=== PATIENT | female | born 1955 ===

== ENCOUNTER 2022-04-05 14:39 | Emergency (ER) | payer MEDICARE, MEDICAID, SELFPAY ==
[2022-04-05 14:42] VITALS: BP 180/78; PULSE 93; RESP 18; TEMP 35.9; O2SAT 98; BMI 30.5
--- NOTE | 2022-04-05 14:51 | ED_ITS ---
HPI - General Adult General Chief complaint: General Medical Stated complaint: Flu symptoms 10+days Time Seen by Provider: 04/05/22 14:51 Source: patient Mode of arrival: ambulatory Limitations: no limitations History of Present Illness HPI narrative: Patient is a 66 year old female presenting to the emergency department today with a cough and feeling generally unwell. Patient states that she has had a cough and felt generally unwell for 10 days now. Patient states that she does have a history of asthma. Patient denies any dizziness, lightheadedness, abdominal pain, nausea, vomiting, fever, chills, blurry vision, double vision, loss of vision, chest pain, difficulty breathing, shortness of breath, back pain, night sweats, pain with urination, increased urinary frequency, increased urinary urgency, blood in her urine or stool, syncope or a near syncopal episode, recent trauma or falls, bowel incontinence, bladder incontinence, bowel retention, bladder retention, or any other complaints at this time. Onset (ago): day(s) (10) Severity: mild Severity scale (1-10): 1 Relieving factors: none Exacerbating factors: none Associated symptoms: cough Treatments prior to arrival: none Related Data Previous Rx's Medication Instructions Recorded albuterol sulfate 90 mcg/actuation 2 inh inhalation Q4-6H PRN 04/05/22 breath activated powder inhaler shortness of breath #1 ea azithromycin 500 mg tablet See Rx Instructions PO .COMPLEX #3 04/05/22 tabs prednisone 20 mg tablet 20 mg PO DAILY 12 days #26 tabs 04/05/22 Allergies Allergy/AdvReac Type Severity Reaction Status Date / Time sitagliptin [From ] Allergy Unknown Verified 04/05/22 14:46 Review of Systems Constitutional: Constitutional: Reports no additional constitutional complaints, Denies chills, Denies fever(s) and Denies night sweats Eyes: Eyes: Reports no additional eye complaints, Denies blurry vision, Denies change in vision, Denies diplopia, Denies eye discharge, Denies loss of vision a nd Denies eye pain ENT: Denies dizziness Cardiovascular: Cardiovascular: Reports no additional cardiovascular compla ints, Denies chest pain, Denies lightheadedness, Denies Loss of Consciousness and Denies dyspnea Respiratory: Respiratory: Reports no additional respiratory complaints, Reports cough and Denies dyspnea Gastrointestinal: Gastrointestinal: Reports no additional gastrointestinal complaints, Denies abdominal pain, Denies melena, Denies hematochezia, Denies change in bowel habits and Denies change in stool character Genitourinary: Genitourinary: Denies hematuria, Denies urinary frequency, Denies dysuria, Denies urinary incontinence, Denies urinary hesitancy and Denies urinary urgency Musculoskeletal: Musculoskeletal: Reports no additional musculoskeletal complaints, Denies numbness and Denies tingling Neurologic: Denies dizziness, Denies loss of vision, Denies numbness and Denies tingling Psychiatric: Psychiatric: Reports no additional psychiatric complaints Endocrine: Endocrine: Reports no additional endocrine complaints Hematologic/Lymphatic: Hematologic/Lymphatic: Reports no additional hematologic/lymphatic complaints Allergic/Immunologic: Allergic/Immunologic: Reports no additional allergic/immunologic complaints [facility] Past Medical History Attestation statement: The following information was validated with the patient. Source: old records reviewed Social History Social History Advance Directives: No Advance Directives Information Provided: No Physical Exam ED Vital Signs: Vital Signs - 24 hr 04/05/22 14:42 Temperature 96.7 F L Pulse Rate 93 Respiratory Rate 18 Blood Pressure 180/78 H Pulse Oximetry 98 Oxygen Delivery Method Room Air BMI result Body Mass Index 30.5 Const General: cooperative, no acute distress, alert and awake Nutritional Appearance: well nourished Orientation/consciousness: patient oriented x3 Limitations: no limitations HENMT Head: Yes normal to inspection and Yes atraumatic Ears: hearing grossly normal bilaterally and external ears normal General nose exam: Normal external nose present, no nasal discharge noted and no epistaxis Face and sinus: Yes normal facial exam, No abrasion and No laceration Mouth: Normal oral and palatal mucosa present, no drooling and no muffled voice Eyes General: appearance normal, both eyes and all related structures Periorbital: periorbital findings normal Eyelids: Yes eyelids normal Conjunctivae: conjunctivae normal Pupils: Equal, round and reactive pupils present EOM: EOMs intact bilaterally Neck Neck: Yes normal visual inspection, Yes full ROM and Yes no lymphadenopathy Chest Chest palpation & inspection: normal inspection of the chest Resp Effort & Inspection: normal respiratory effort and able to speak in complete sentences Auscultation: clear to auscultation bilaterally Cardio Rate: regular rate Rhythm: regular rhythm GI Inspection: Yes normal to inspection Neuro General: patient oriented x3 and moves all extremities Cranial nerves: Yes Equal, round and reactive pupils present Cognition (Neuro): normal cognition Motor exam (neuro): 5/5 motor strength present throughout Sensory Exam: Normal double simultaneous stimulation for sensation Coordination: [id number] test normal Extrem General: Yes normal to inspection, Yes full ROM and Yes capillary refill normal Psych Appearance: grossly normal Mental Status: mental status grossly normal Affect: normal affect Attitude: cooperative Thought process: Normal thought process present Thought content: Normal thought content present Insight: Good insight present (Psych) Medical Decision Making MDM Narrative Medical decision making narrative: Patient is a 66 year old female presenting to the emergency department today with a cough. Patient's physical exam was unremarkable. Patient's rapid COVID-19 and influenza tests were both negative. I explained my physical exam findings as well as all test results to the patient. I answered all questions asked by the patient. I stressed the importance of the patient taking her medication as prescribed. I stressed the importance of the patient following up with her primary care provider. I stressed the importance of the patient returning to the emergency department immediately if her symptoms were to worsen or if she were to develop any dizziness, shortness of breath, difficulty breathing, chest pain, blurry vision, loss of vision, nausea, vomiting, abdominal pain, fever, chills, back pain, or any other complaints. Patient verbalized agreement and understanding with this treatment plan and discharge. Differential Diagnosis Differential Diagnosis: URI, bronchitis, asthma exacerbation Medical Records Medical records reviewed: Yes I reviewed the patient's medical records. Lab Data Lab results reviewed: Yes I reviewed the patient's lab results. Labs: Lab Results 04/05/22 04/05/22 Range/Units 14:48 14:48 COVID-19 (JOSELYN) Negative (Negative) COVID-19 Clin Com See Note Influenza Type A (HOLGER) Negative (Negative) Influenza Type B (HOLGER) Negative (Negative) Influenza A & B Note See Note Discharge Plan Discharge Clinical Impression: Bronchitis Patient Disposition: Home, Self-Care Instructions: Acute Bronchitis (ED) Additional Instructions: Follow up with your primary care provider. Return to the emergency department immediately if your symptoms worsen or if you develop any dizziness, shortness of breath, difficulty breathing, chest pain, blurry vision, loss of vision, nausea, vomiting, abdominal pain, fever, chills, back pain, or any other complaints. Prescriptions: New azithromycin 500 mg tablet See Rx Instructions .ROUTE .COMPLEX Qty: 3 0RF Rx Instructions: For 500 mg dose pack: take 500 mg once daily for 3 days prednisone 20 mg tablet 20 mg PO DAILY 12 Days Qty: 26 0RF Rx Instructions: Take 3 tablets for 5 days THEN; Take 2 tablets for 4 days THEN; Take 1 tablet for 3 days albuterol sulfate 90 mcg/actuation aerosol powdr breath activated 2 inh inhalation Q4-6H PRN (Reason: shortness of breath) Qty: 1 0RF Referrals: Alana Beach PA [Primary Care Provider] - Print Language: Nepali
[2022-04-05 15:08] LABS: COVID-19 Test Negative (Negative); IDNOW Serial# 16C4AD1C
[2022-04-05 15:09] LABS: Influenza A Negative (Negative); Influenza B2 Negative (Negative)
== END 2022-04-05 15:50 | disposition home or self-care (01) ==
PROVIDERS: Emergency Provider Emergency Medicine Emergency Medical Services; PCP Physician Assistant
DX: J40 Bronchitis, not specified as acute or chronic (principal); Z20.822 Contact with and (suspected) exposure to COVID-19
CPT/HCPCS: 87502; 87635; 99282; 99283

== ENCOUNTER 2022-04-20 13:15 | Emergency (ER) | payer OTHER, MEDICARE, SELFPAY | END 2022-04-20 17:11 | disposition left against medical advice (07) | PROVIDERS: Emergency Provider Emergency Medicine; PCP Physician Assistant | DX: R51.9 Headache, unspecified (principal); R05.9 Cough, unspecified ==

== ENCOUNTER 2022-05-29 11:37 | Outpatient (REF) | payer OTHER, SELFPAY ==
[2022-05-29 13:54] LABS: MANUAL DIFF FLAG NO
[2022-05-29 14:02] LABS: Basophils Absolute Auto 0.1 X10*3/uL (0.0-0.2); Basophils Percent Auto 0.7 % (0-2); Eosinophils Absolute Auto 0.3 X10*3/uL (0.0-0.4); Eosinophils Percent Auto 5.1 % (0-4); Hematocrit 37.3 % (37.0-47.0); Hemoglobin 11.1 g/dl (12.0-16.0); Imm Gran Abs Auto 0.04 X10*3/uL (0.00-0.03); Imm Gran Pct Auto 0.6 % (0.0-0.4); Lymphocytes Absolute Auto 2.1 X10*3/uL (1.2-4.9); Lymphocytes Percent Auto 31.2 % (20-40); Mean Corpuscular HGB Conc 29.8 g/dl (31.0-35.0); Mean Corpuscular Hemoglobin 23.6 pg (27.0-33.0); Mean Corpuscular Volume 79.2 fL (80.0-98.0); Mean Platelet Volume 10.4 fL (9.4-12.3); Monocytes Absolute Auto 0.6 X10*3/uL (0.1-1.2); Monocytes Percent Auto 9.1 % (2-11); Neutrophils Absolute Auto 3.6 x10*3/uL (2.0-8.3); Neutrophils Percent Auto 53.3 % (45-73); Platelet Count 309 X10*3/uL (160-400); Red Blood Count 4.71 X10*6/uL (4.20-5.50); Red Cell Distribution Width 16.9 % (11.0-16.0); White Blood Count 6.7 X10*3/uL (4.8-10.8)
[2022-05-29 14:32] LABS: Alanine Aminotransferase 12 U/L (0-31); Alkaline Phosphatase 110 U/L (39-117); Anion Gap 16 (12-20); Aspartate Amino Transferase 14 U/L (5-31); Bilirubin Total 0.3 mg/dL (0.0-1.0); Blood Urea Nitrogen 15 mg/dL (9-16); Calcium 9.4 mg/dL (8.4-10.2); Carbon Dioxide 24 mmol/L (22-29); Chloride 103 mmol/L (96-108); Estimated Glomerular Filt Rate > 60; Glucose Random 260 mg/dL (60-115); Potassium 4.9 mmol/L (3.3-5.1); Sodium 138 mmol/L (135-145)
== END 2022-05-29 11:38 | disposition home or self-care (01) ==
LOC: HO.HMGCLDS 11:37
PROVIDERS: PCP Nurse Practitioner Family; Visit Provider Physician Assistant Medical
DX: R60.9 Edema, unspecified (principal)
CPT/HCPCS: 36415; 80053; 85025

== ENCOUNTER 2022-06-29 15:53 | Outpatient (REF) | payer OTHER, SELFPAY ==
--- NOTE | ~2022-06-29 | XR_ITS ---
EXAMINATION: XR CHEST CLINICAL INFORMATION: Edema COMPARISON: Comparison 10/22/2012 TECHNIQUE: 2 views of the chest were obtained. FINDINGS: The cardiomediastinal silhouette is within normal limits. The lungs are well expanded. Mild central vascular prominence without overt pulmonary edema. There is no focal consolidation, or effusion. No pneumothorax. No acute osseous abnormality. XR/XR chest 2V IMPRESSION: Mild central vascular prominence without overt pulmonary edema. No focal consolidation seen.
--- NOTE | ~2022-06-29 | XR_ITS ---
EXAMINATION: XR SHOULDER, RIGHT CLINICAL INFORMATION: Shoulder pain COMPARISON: None TECHNIQUE: 3 views of the right shoulder. FINDINGS: No evidence of acute fracture or dislocation. Mild acromioclavicular arthritis. Glenohumeral joint space is relatively maintained. There is greater tuberosity spurring, subcortical sclerosis and cysts. No abnormal soft tissue calcification. Visualized right lung is clear. XR/XR shoulder RT min 2V IMPRESSION: No evidence of acute osseous abnormality. Degenerative/arthritic changes as above.
== END 2022-06-29 15:54 | disposition home or self-care (01) ==
LOC: HO.HMGCX 15:53
PROVIDERS: PCP Nurse Practitioner Family; Visit Provider Physician Assistant
DX: M25.511 Pain in right shoulder (principal); R60.9 Edema, unspecified
CPT/HCPCS: 71046; 73030

== ENCOUNTER → 2022-11-11 14:36 | Outpatient (REF) | payer OTHER, SELFPAY ==
--- NOTE | 2022-11-11 14:39 | CA_ITS ---
Transthoracic Echocardiogram Patient (Last, First, Middle): Clotilde Vidales, Gender: Female Date of : 1955 Age: 67 Procedure Date: 11/11/2022 Procedure Type: Transthoracic Echocardiogram Location: OP Height: 157.48 cm Weight: 76.2 kg BSA: 1.77 m2 Heart Rate: 90 bpm BP: 130 / 70 mmHg Cistern Room Working Supervisor: LUIGI Gomez MD: Chris Singh [facility] Public Speaking Instructor: Dimas Messer MD Symptoms: R01.1 - Cardiac murmur, unspecified Study Quality: Fair ECG Rhythm: Sinus Conclusions: - 1. Normal LV systolic function with impaired relaxation filling pattern with mild asymmetric septal hypertrophy 2. Calcified aortic valve changes noted and mild mitral calcification with mild aortic and mitral regurgitation 3. Normal RV systolic pressure 4. No gross pericardial effusion Findings Left Ventricle Normal left ventricular size, thickness, and systolic function. The visually estimated ejection fraction is between 55-60%. Spectral Doppler is indicative of an impaired relaxation filling pattern. E/E prime ratio is between 8 and 15 consistent with indeterminate filling pressures. There is mild septal asymmetric hypertrophy. Right Ventricle Normal right ventricular cavity size and systolic function. Atria Both atria are normal in size. Interatrial shunt cannot be excluded. Aortic Valve The aortic valve was not well visualized. There is mild calcification of the aortic valve. There is no aortic valve stenosis. There is mild aortic valve regurgitation. Mitral Valve There is mild anterior and posterior mitral leaflet thickening. There is mild mitral annular calcification. There is mild mitral valve regurgitation. There is no mitral valve stenosis. Pulmonic Valve The pulmonic valve was not well visualized. Tricuspid Valve Likely normal tricuspid valve structure and function. There is trace tricuspid valve regurgitation. The right ventricular systolic pressure is normal. The right ventricular systolic pressure is 20 mmHg. Normal right atrial pressure. There is no evidence of pulmonary hypertension. Great Vessels All visible segments of the aorta are normal in size. The pulmonary artery was not well visualized. Venous The inferior vena cava is normal in size and collapses greater than 50% with inspiration. Pericardium/Pleural There is no evidence of pericardial effusion. Prior Study Comparison No prior study available for comparison. Measurements 2D Linear Measurements IVSd: 1.18 0.6-0.9/0.6-1.0 cm LVIDd: 4.16 3.9-5.3/4.2-5.9 cm LVIDd Index: 2.35 2.4-3.2/2.2-3.1 cm/m2 LVIDs: 2.71 2.0-3.6 cm LVPWd: 1.08 0.7-1.1 cm LA Diam: 4.00 2.7-3.8/3.0-4.0 cm LAIDs Index: 2.26 1.5-2.3 cm/m2 LV Mass: 200.32 67-162/88-224 g LV Mass Index: 113.18 43-95/49-115 g/m2 LVOT Diam: 2.00 3.0+(-)1.3 cm 2D Systolic Function EF 4C: 55.00 >55% EF 2C: 58.60 >55% EF BiP: 56.70 >55% Mitral Valve MV Pk E: 0.83 MV PK A: 1.14 MV Decel Time: 308.00 E/A: 0.70 E'Lateral: 4.03 E'Medial: 4.46 E/E' Med: 18.50 E/E' Lat: 20.50 PHT: 90.00 MVA PHT: 2.44 Decel Phillips: 2.68 Aortic Valve AoV Pk José Miguel: 1.96 AoV Mn José Miguel: 1.33 AoV VTI: 0.37 AoV Pk Grad: 15.00 Aov Mn Grad: 8.00 MAJOR Cont.VTI: 1.76 LVOT LVOT Pk José Miguel: 1.03 LVOT Mn José Miguel: 0.74 LVOT VTI: 0.21 LVOT Pk Grad: 4.00 LVOT Mn Grad: 2.00 LVOT Diam: 2.00 LVOT Area: 3.14 Diastolic Function MV Pk E: 0.83 MV Pk A: 1.14 E/A: 0.70 E'Medial: 4.46 E/E' Med: 18.50 E' Laterial: 4.03 E/E' Lat: 20.50 Right Ventricle TAPSE (mm): 26.90 TVS' José Miguel: 13.30 Tricuspid Valve TR Pk José Miguel: 2.06 TR Pk Grad: 17.00 RA Press: 3.00 RVSP: 20.00 Great Vessels Aorta Sinus of Valsalva: 3.10 2.0-3.5 cm Ao Asc: 3.30 2.1-3.4 cm Pulmonary Valve PV Pk José Miguel: 1.03 Peak PV Grad: 4.00 Updated in Other Vendor System with Status of Final Dimas Messer MD electronically signed on 11/11/2022 4:31:13 PM with status of Final
== END ==
LOC: HO.CARD 14:36
PROVIDERS: Visit Provider Nurse Practitioner Family
DX: R01.1 Cardiac murmur, unspecified (principal)
CPT/HCPCS: 93306

== ENCOUNTER 2022-12-02 16:02 | Outpatient (REF) | payer OTHER, MEDICAID, SELFPAY ==
--- NOTE | ~2022-12-02 | XR_ITS ---
EXAMINATION: XR CHEST CLINICAL INFORMATION: Cough COMPARISON: 06/29/2022 TECHNIQUE: 2 views of the chest were obtained. FINDINGS: The lungs are well expanded. There is no focal consolidation, edema, or effusion. No pneumothorax. The cardiomediastinal silhouette is within normal limits of size with a calcified aorta. No acute osseous abnormality. XR/XR chest 2V IMPRESSION: Clear lungs.
[2022-12-02 19:03] LABS: Influenza A PCR NEGATIVE (Negative); Influenza B PCR NEGATIVE (Negative); Resp Syncy Virus RNA Qual PCR NEGATIVE (Negative); SARS COV2 PCR INHOUSE NEGATIVE (Negative)
== END 2022-12-02 16:03 | disposition home or self-care (01) ==
LOC: HO.HMGCX 16:02
PROVIDERS: PCP Nurse Practitioner Family; Visit Provider Nurse Practitioner Family
DX: Z20.822 Contact with and (suspected) exposure to COVID-19 (principal); R05.9 Cough, unspecified; R09.89 Other specified symptoms and signs involving the circulatory and respiratory systems
CPT/HCPCS: 0241U; 71046

== ENCOUNTER 2023-01-26 15:00 | Outpatient (RCR) | payer OTHER, MEDICAID, SELFPAY ==
--- NOTE | 2022-12-11 12:46 | MHC.PT.EP ---
[facility] [place] Office [place] Office [place] Office [address] Joanna Edwards [address] [phone] F: [phone] F: [phone] F: [phone] F: [phone] Physical Therapy Plan of Care Date of Evaluation: Date of Surgery: APRIL 2022 Diagnosis: R SHOULDER PAIN Assessment: Pt IS 67 YO RHD F REFERRED TO PT FROM [facility] WITH R SHOULDER PAIN. Pt REPORTS SHE HAD A FALL IN A PARKING LOT 04/2022 AFTER PLAYING BINGO WAS ABLE TO GET UP AND WENT HOME TOOK SOME MEDS AND USED ICE. WENT TO PCP (JIMBO ALCARAZ). WAS TOLD HAD ARTHRITIS. REPORTS A LITTLE BETTER OVERALL BUT STILL GETTING SHARP PAINS ESPECIALLY AT NIGHT IF SLEEPING ON THAT SIDE . SHOULDER CONTINUING TO BOTHER HER SO WENT TO WALK IN CLINIC AND REFERRED TO PT PRESENTS WITH LIMITED SHOULDER ROM WITH CAPSULAR INVOLVEMENT, DECREASED SHLDER STRENGTH R, POOR SCAPULOTHORACIC RHYTHM AND PAIN AFFECTING ADLS. SHOULD BENEFIT FROM PT TO ADDRESS THESE ISSUES Frequency and Duration: The patient will be seen 2X/WK X 6 WKS Short Term Goals: 1. INCREASED POSTURE AWARENESS AND AWARENESS SHLDER CARE 2. INCREAESD R SHLDER ROM 10 DEGREES T/O 3. IMPROVED SCAPULOTHORACIC RHYTHM (LESS SHLDER HIKE WITH USE) Ground Wood Supervisor Goals: 1. I HEP WITH DC EX PLAN 2. INCREASED R SHLDER ROM 20 DEGREES T/O 3. DECREASED R SHLDER PAIN AT LEAST 50% WITH ADLS Treatment Plan: Modalities to reduce pain, spasms and effusion. Manual therapy to restore motion and function. Therapeutic exercise to improve strength and flexibility. Neuromuscular re-education for posture and balance. Therapeutic activities to return to functional activities of daily living. Electronically signed by: ALEXANDRA SOLOMON PT Please sign and return to therapist. Thank you for your referral.
--- NOTE | 2023-01-26 15:52 | MHC.PT.DC ---
[facility] [place] Office [place] Office [place] Office [address] Joanna Edwards 140 [facility] [phone] F: [phone] F: [phone] F: [phone] F: [phone] Physical Therapy Discharge Report Diagnosis: R SHOULDER PAIN Date of Surgery: APRIL 2022 DOI Date of Evaluation: 12/11/22 Date of Discharge: 01/26/23 Treatments to Date: 8 Cancellations to Date: No Shows to Date: Discharge Status: Achieved Goals Improved Function Independent with HEP Discharge Summary: R SHLDER FLEX =151 R SHLDER EGZ=974 HAS MET MOST PT GOALS, GOOD PERF HEP Electronically signed by: ALEXANDRA SOLOMON PT Please sign and return to therapist. Thank you for your referral.
== END 2023-01-26 15:53 | disposition home or self-care (01) ==
LOC: HO.PT 15:00
PROVIDERS: PCP Nurse Practitioner Family; Visit Provider Physician Assistant
DX: M25.511 Pain in right shoulder (principal)
CPT/HCPCS: 97035; 97110; 97140; 97161; 97535

== ENCOUNTER 2023-02-11 10:10 | Outpatient (REF) | payer OTHER, MEDICAID, SELFPAY ==
[2023-02-11 10:30] LABS: MANUAL DIFF FLAG NO
[2023-02-11 11:01] LABS: Basophils Percent Auto 0.6 % (0-2); Eosinophils Absolute Auto 0.1 X10*3/uL (0.0-0.4); Eosinophils Percent Auto 2.7 % (0-4); Hematocrit 37.8 % (37.0-47.0); Hemoglobin 11.1 g/dl (12.0-16.0); Imm Gran Abs Auto 0.02 X10*3/uL (0.00-0.03); Imm Gran Pct Auto 0.4 % (0.0-0.4); Lymphocytes Absolute Auto 2.2 X10*3/uL (1.2-4.9); Lymphocytes Percent Auto 45.9 % (20-40); Mean Corpuscular HGB Conc 29.4 g/dl (31.0-35.0); Mean Corpuscular Hemoglobin 21.9 pg (27.0-33.0); Mean Corpuscular Volume 74.4 fL (80.0-98.0); Mean Platelet Volume 9.8 fL (9.4-12.3); Monocytes Absolute Auto 0.4 X10*3/uL (0.1-1.2); Monocytes Percent Auto 8.7 % (2-11); Neutrophils Percent Auto 41.7 % (45-73); Platelet Count 353 X10*3/uL (160-400); Red Blood Count 5.08 X10*6/uL (4.20-5.50); Red Cell Distribution Width 18.3 % (11.0-16.0); White Blood Count 4.8 X10*3/uL (4.8-10.8)
[2023-02-11 11:10] LABS: Estimated Average Glucose 226 mg/dL; Hemoglobin A1c % 9.5 %
[2023-02-11 11:11] LABS: Appearance Urine Clear; Color Urine Yellow; Glucose Urine UA >=1000 mg/dL (Negative); Leukocyte Esterase Urine Negative (Negative); Nitrite Urine Negative (Negative); PH 5.5 (5.0-9.0); Specific Gravity - Urine >= 1.030 (1.005-1.025); UMIC TRIGGER UACC YES; Urine Blood Negative (Negative); Urine Ketones Negative (Negative); Urine Protein Negative (Neg-Trace)
[2023-02-11 11:31] LABS: Bacteria Urine 4+ (None Seen); Hyaline Casts Urine 0-2 /LPF (0-2); RBC Urine 0-2 /HPF (0-2); Squamous Epithelial Cell Urine 0-2 /HPF (0-2); UACC Culture Trigger YES; WBC Urine 21-50 /HPF (0-5)
[2023-02-11 12:17] LABS: Creatinine Urine 71.85 mg/dL; Microalbum/Creatinine Ratio Ur 8.3 ug/mg cr
[2023-02-11 12:25] LABS: Alanine Aminotransferase 9 U/L (0-31); Albumin Level 4.2 g/dL (3.5-5.0); Alkaline Phosphatase 108 U/L (39-117); Anion Gap 14 (12-20); Aspartate Amino Transferase 11 U/L (5-31); Bilirubin Total 0.4 mg/dL (0.0-1.0); Blood Urea Nitrogen 13 mg/dL (9-16); Calcium 9.8 mg/dL (8.4-10.2); Carbon Dioxide 26 mmol/L (22-29); Chloride 106 mmol/L (96-108); Cholesterol 161 mg/dL; Estimated Glomerular Filt Rate > 60; Glucose Fasting 157 mg/dL (60-99); HDL Cholesterol 34 mg/dL; LDL Cholesterol Calculated 90 mg/dl; Potassium 4.7 mmol/L (3.3-5.1); Sodium 141 mmol/L (135-145); Total Protein 6.9 g/dL (6.5-8.0); Triglycerides 186 mg/dL
[2023-02-11 12:58] LABS: Folate 11.8 ng/mL (> or = 4.0); TSH reflex Free T4 2.39 uIU/mL (0.32-4.0); Vitamin B12 1219 pg/mL (200-900)
== END 2023-02-11 10:11 | disposition home or self-care (01) ==
LOC: HO.LAB 10:10
PROVIDERS: PCP Nurse Practitioner Family; Visit Provider Nurse Practitioner Family
DX: E11.9 Type 2 diabetes mellitus without complications (principal); E53.8 Deficiency of other specified B group vitamins; R82.90 Unspecified abnormal findings in urine
CPT/HCPCS: 36415; 80053; 80061; 81001; 81003; 82043; 82607; 82746; 83036; 84443; 85025; 87086; 87088; 87186

== ENCOUNTER 2023-05-03 11:39 | Outpatient (REF) | payer OTHER, SELFPAY ==
--- NOTE | ~2023-05-03 | MM_ITS ---
EXAMINATION: MM SCREENING DIGITAL BREAST TOMOSYNTHESIS, BILATERAL CLINICAL INFORMATION: Screening. Asymptomatic. The lifetime risk of breast cancer based on the Tyrer-Cuzick Model is 5.5%. COMPARISON: Mammography: This study is compared with prior exams dating back to 2019. TECHNIQUE: Digital breast tomosynthesis is performed in both the craniocaudal and mediolateral oblique views along with computer-aided detection (CAD). Synthesized 2D images are generated from the tomosynthesis. FINDINGS: There are scattered areas of fibroglandular density (ACR BI-RADS breast composition Category b). There are no significant masses, abnormal calcifications, or other abnormalities. There is a tissue marker present in the left breast from prior benign percutaneous biopsy. Scattered benign calcifications are present in each breast. MM/MM tomosynthesis screening BI IMPRESSION: No mammographic evidence of malignancy. ASSESSMENT: BI-RADS BI-RADS 2 - Benign Findings RECOMMENDATION: Routine annual mammography screening. 1 year F/U This examination should not preclude the clinical evaluation of a suspicious palpable abnormality. This patient's information was entered into a reminder system with a target due date for their next mammogram.
== END 2023-05-03 11:40 | disposition home or self-care (01) ==
LOC: HO.MAMMO 11:39
PROVIDERS: PCP Nurse Practitioner Family; Visit Provider Nurse Practitioner Family
DX: Z12.31 Encounter for screening mammogram for malignant neoplasm of breast (principal)
CPT/HCPCS: 77063; 77067

== ENCOUNTER → 2023-05-03 12:00 | Outpatient (BNV) | payer OTHER, SELFPAY | PROVIDERS: PCP Nurse Practitioner Family; Visit Provider Radiology Diagnostic Radiology | DX: Z12.31 Encounter for screening mammogram for malignant neoplasm of breast (principal) | CPT/HCPCS: 77063; 77067 ==

== ENCOUNTER 2023-06-15 15:12 | Outpatient (AMB) | payer OTHER, SELFPAY ==
[2023-06-15 15:24] VITALS: BP 126/64; PULSE 98; O2SAT 99; BMI 30.2
--- NOTE | 2023-06-15 15:24 | MHC.PC.OV ---
Vital Signs 06/15/23 15:24 Height 5 ft 2 in Weight 165 lb 6 oz BMI 30.2 BP 126/64 Blood Pressure Location Rt brachial Position Sitting Pulse 98 Pulse Source Pulse Oximeter Pulse Oximetry (%) 99 Oxygen Delivery Method Room Air Intake Visit Reasons: 4 month follow up Allergies sitagliptin [From [facility]] Allergy (Verified 02/09/23 13:03) diarrhea vomiting Medication List - Last Reviewed 06/15/23 by Hortencia Wilder, TRINA albuterol sulfate 90 mcg/actuation 2 inhalations inhalation Q4-6H PRN albuterol sulfate 90 mcg/actuation 2 puffs inhalation Q4H PRN apixaban (Eliquis) 5 mg PO BID aspirin 81 mg PO DAILY atorvastatin 20 mg PO DAILY cetirizine 10 mg PO DAILY cyanocobalamin (vitamin B-12) 500 mcg PO DAILY empagliflozin (Jardiance) 25 mg PO DAILY fluticasone propionate 50 mcg/actuation sprays intranasal glipizide ER 20 mg PO DAILY incontinence pad, liner, disp (Prevail Panty Liner pads) As directed metformin 1,000 mg PO BID metoprolol succinate ER 50 mg PO DAILY mirabegron ER (Myrbetriq) 25 mg PO DAILY omeprazole 40 mg PO DAILY pioglitazone 30 mg PO BID salmeterol (Serevent Diskus) 1 inh inhalation BID semaglutide (Ozempic) 0.5 mg (0.736 mL) subcut QWEEK [skin care wipes As directed] Tobacco use date assessed: 06/15/23 Fall risk assessment: 1 Fall in past year Last assessed Fall Risk: 06/15/23 Dental Screening Dental Screen Date: 06/15/23 Did you have a dental visit in the last 12 months?: No Did you have a dental problem in the last 6 months where you did not have access to dental care?: No Was dental information given to patient?: Patient has dentist HPI 4 month follow up HPI Details Pt is a diabetic, on a statin. A1C in office today is 7.9. Microalbumin is up to date. Denies polyuria, polydipsia, and neuropathy. Pt denies any signs and symptoms of hypoglycemia and does know how to correct it. Eye exam is scheduled for next month. Will increase ozempic from 05.mg to 1mg. Pt will continue working on her diet. Will start low-dose lisinopril. Pt's cologuard was positive. She has been referred to GI. [facility] Medical History Edema Social History Housing: Apartment Patient Tobacco Use Status: Never used Tobacco e-Cigarette/Vaping Use: Never Used Second Hand Smoke Exposure: No service: No Current occupational status: retired Cognitive needs: No Hearing needs: No Vision needs: No Questionnaire Thrive Questionnaire Date Thrive assessed: 11/02/22 TOMEKA-7 AMB Questionnaire TOMEKA-7 Date TOMEKA - 7 assessed: 11/02/22 Source: Developed by Drs. Gonsalo Gomez, Jerilyn Doe, Santiago Wakefield and colleagues, with an educational yung from [employer]. Review of Systems Const Reports as per HPI Physical exam (Primary Care) Vital Signs: Last Vital Signs Pulse 98 06/15/23 15:24 BP 126/64 06/15/23 15:24 Pulse Ox 99 06/15/23 15:24 Oxygen Delivery Method Room Air 06/15/23 15:24 BMI result Body Mass Index 30.2 Tobacco/Smoking Status: Tobacco use Status Tobacco use date assessed 06/15/23 06/15/23 15:32 Patient Tobacco Use Status Never used Tobacco 06/15/23 15:27 e-Cigarette/Vaping Use Never Used 06/15/23 15:27 Thrive Assessment: Date of Thrive Assessment Date Thrive assessed 11/02/22 06/15/23 15:27 Const General: cooperative Orientation/consciousness: patient oriented x3 Resp Effort & Inspection: normal respiratory effort Auscultation: clear to auscultation bilaterally Cardio Rate: regular rate Rhythm: regular rhythm Heart sounds: S1 normal heart sound present, S2 normal heart sound present and Murmur heart sound present systolic Neuro General: patient oriented x3 Extrem Other: bilat feet: + sensation with use of monofilament, feet intact Psych Appearance: grossly normal Mental Status: mental status grossly normal Speech and movement: Normal speech and movement present Affect: normal affect Attitude: cooperative Thought process: Normal thought process present Thought content: Normal thought content present Insight: Good insight present (Psych) Judgement: Good judgement present (Psych) Results AMB Hemoglobin A1c AMB Hemoglobin A1c 7.9 % Last Edit by Hortencia Wilder CMA on 06/15/23 15:50 Results Reviewed Results Reviewed: Laboratory Last Values Hgb A1c (Clinic) 7.9 % (4.0-6.0) H 06/15/23 15:48 Assessment and Plan Assessment & Plan (1) Diabetes mellitus: Code(s): E11.9 - Type 2 diabetes mellitus without complications Plan: Labs ordered (2) Positive colorectal cancer screening using Cologuard test: Code(s): R19.5 - Other fecal abnormalities (3) Systolic murmur: Code(s): R01.1 - Cardiac murmur, unspecified Plan The patient agreed to the use of a medical laboratory technical officer for this encounter. Scribed for ISMAEL Humphrey by Heather Colon medical laboratory technical officer, on 06/15/2023 at 15:40 EST. Orders: Orders Comprehensive Met. Panel Today E11.9 - Type 2 diabetes mellitus without complications Vitamin D 25-OH Total Today Z78.0 - Asymptomatic menopausal state XR DEXA axial skeleton Today Z78.0 - Asymptomatic menopausal state AMB Hemoglobin A1c Today E11.9 - Type 2 diabetes mellitus without complications Medications: New lisinopril 2.5 mg PO DAILY 90 tabs 0RF Changed From semaglutide (Ozempic) 0.5 mg (0.736 mL) subcut QWEEK 9 mL 1RF E11.9 - Type 2 diabetes mellitus without complications To semaglutide 1 mg (0.75 mL) subcut QWEEK 3 mL 3RF E11.9 - Type 2 diabetes mellitus without complications Coding Level of Care Code Est Pt Level 3 (05903) Diagnoses Diabetes mellitus E11.9 Positive colorectal cancer screening using Cologuard test R19.5 Systolic murmur R01.1
== END 2023-06-15 16:12 | disposition home or self-care (01) ==
PROVIDERS: PCP Nurse Practitioner Family; Visit Provider Nurse Practitioner Family
DX: E11.9 Type 2 diabetes mellitus without complications (principal); R19.5 Other fecal abnormalities; R01.1 Cardiac murmur, unspecified
CPT/HCPCS: 83036; 99213

== ENCOUNTER 2023-06-25 14:45 | Outpatient (AMB) | payer OTHER, SELFPAY ==
--- NOTE | 2023-06-25 14:57 | MHC.OFFVIS ---
Intake Vital Signs 06/25/23 15:01 Height 5 ft 2 in Weight 163 lb BMI 29.8 BP 121/60 Blood Pressure Location Lt brachial Position Sitting Pulse 103 H Intake Visit Reasons: Other fecal abnormalities Intake Note: Patient new consult for positive Cologuard and Pre colonoscopy screening Patient cc: Constipation, and denies any other GI issues. 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 Patient had positive Cologuard done in April. Patient denies any melena, hematochezia, unintentional weight loss or ribbon like stools. Patient denies any dyspepsia, dysphagia or odynophagia. However patient reports occasional postprandial abdominal bloating and passing gas. Patient denies any issues with anesthesia in the past no history of sleep apnea. On Eliquis for AFib. Patient has not followed up with any rx specialist yet. Patient has history of shortness of breath with or without exertion, denies syncope or chest pain. Occasional bilateral lower extremity edema. Patient reports that she has been constipated and does not move her bowels daily. Patient states occasionally she will use Senokot to help her move her bowels and states that it works well. [facility], [facility] Medical History Edema Family History Mother No problems noted. Father No problems noted. Social History Housing: Apartment Patient Tobacco Use Status: Never used Tobacco e-Cigarette/Vaping Use: Never Used Second Hand Smoke Exposure: No service: No Current occupational status: retired Cognitive needs: No Hearing needs: No Vision needs: No Review of Systems Const Denies weight gain and Denies weight loss ENT Reports no additional complaints, Denies dysphagia and Denies odynophagia Card Reports no additional complaints Resp Reports no additional complaints GI Denies abdominal pain, Denies belching, Denies melena, Denies bloating, Reports constipation, Denies dysphagia, Denies excessive flatus, Denies dyspepsia, Denies heartburn, Denies diarrhea, Denies loose stools, Denies nausea, Denies odynophagia and Denies vomiting Reports no additional complaints Musc Reports no additional complaints Neuro Reports no additional complaints Psych Reports no additional complaints Endo Reports no additional complaints Physical Exam Vital Signs: Last Vital Signs Pulse 103 H 06/25/23 15:01 BP 121/60 06/25/23 15:01 BMI result Body Mass Index 29.8 Const General: healthy appearing, no acute distress and well developed Nutritional Appearance: well nourished Orientation/consciousness: patient oriented x3 HEENT Head: Yes normal to inspection, Yes normocephalic and Yes atraumatic Face and sinus: Yes normal facial exam Mouth: Normal oral and palatal mucosa present Throat: Yes posterior oropharynx normal, Yes tonsils normal and Yes uvula midline Eyes General: appearance normal, both eyes and all related structures Neck Neck: Yes normal visual inspection, Yes full ROM and Yes trachea midline Thyroid: Thyroid normal Resp Effort & Inspection: normal respiratory effort, able to speak in complete sentences, no tracheal deviation and symmetric chest movement Auscultation: clear to auscultation bilaterally Cardio Rate: regular rate Heart sounds: S1 normal heart sound present, S2 normal heart sound present and Murmur heart sound present GI Inspection: Yes normal to inspection, No distended and Yes obesity Palpation (GI): Soft to palpation, not firm, nontender and No hepatosplenomegaly present Auscultation: normal bowel sounds General: Yes no CVA tenderness Back/Spine/Pelvis Back: no CVA tenderness Skin General skin exam: elasticity normal, turgor normal and dry skin Neuro General: patient oriented x3 Psych Appearance: grossly normal Mental Status: mental status grossly normal Assessment & Plan Assessment & Plan (1) Positive colorectal cancer screening using Cologuard test: Code(s): R19.5 - Other fecal abnormalities (2) Afib: Code(s): I48.91 - Unspecified atrial fibrillation Qualifiers: Atrial fibrillation type: paroxysmal Qualified Code(s): I48.0 - Paroxysmal atrial fibrillation (3) Systolic murmur: Code(s): R01.1 - Cardiac murmur, unspecified (4) Constipation: Code(s): K59.00 - Constipation, unspecified Qualifiers: Constipation type: slow transit constipation Qualified Code(s): K59.01 - Slow transit constipation Plan History of AFib, on Eliquis. Occasional shortness of breath and edema to bilateral lower extremities. Will send patient for cardiac risk stratification. Patient also is not moving her bowels well. Will start taking Senokot daily. I will see her in 6 weeks to discuss going for colonoscopy and making sure that patient is moving her bowels. Please book colonoscopy for patient. Patient is agreeable to plan of care and verbalizes understanding of instructions. She was given the opportunity to ask questions and all questions answered. Thank you for allowing me to participate in her care Orders: Referrals Cardiology Referral Z01.810 - Encounter for preprocedural cardiovascular examination Medications: New sennosides (Natural Senna Laxative) 17.2 mg (2 x 8.6 mg) PO BEDTIME 60 tabs 1RF constipation K59.00 - Constipation, unspecified Coding Level of Care Code New Pt Level 3 (49840) Diagnoses Positive colorectal cancer screening using Cologuard test R19.5 Paroxysmal atrial fibrillation I48.0 Atrial fibrillation type: paroxysmal Systolic murmur R01.1 Slow transit constipation K59.01 Constipation type: slow transit constipation Time Spent (min) 40 Comment 30 minutes spent with patient and additional 10 minutes spent reviewing her records
[2023-06-25 15:01] VITALS: BP 121/60; PULSE 103; BMI 29.8
== END 2023-06-25 15:25 | disposition home or self-care (01) ==
PROVIDERS: PCP Nurse Practitioner Family; Visit Provider Nurse Practitioner Family
DX: R19.5 Other fecal abnormalities (principal); I48.0 Paroxysmal atrial fibrillation; R01.1 Cardiac murmur, unspecified; K59.01 Slow transit constipation
CPT/HCPCS: 99203

== ENCOUNTER → 2023-06-25 14:45 | Outpatient (BNVA) | payer OTHER, SELFPAY | PROVIDERS: PCP Nurse Practitioner Family; Visit Provider Nurse Practitioner Family ==

== ENCOUNTER 2023-07-06 14:49 | Outpatient (REF) | payer OTHER, SELFPAY ==
--- NOTE | ~2023-07-06 | MM_ITS ---
EXAMINATION: BONE DENSITOMETRY CLINICAL INDICATION: Menopause. COMPARISON: This is the patient's baseline examination. TECHNIQUE: Using a [employer] DXA System (software version: 13.1) manufactured by [employer], dual-energy x-ray absorptiometry was performed of the lumbar spine and left hip. The images are of good technical quality. Summary results are attached. FINDINGS: LEFT FEMUR, NECK: BMD 1.077 g/cm2, Z-score 1.7, T-score 0.3, normal. LEFT FEMUR, TOTAL: BMD 1.113 g/cm2, Z-score 2.0, T-score 0.8, normal. AP SPINE L1-L4: BMD 1.289 g/cm2, Z-score 2.3, T-score 0.9, normal. IDENTIFIED RISK FACTORS: Menopause, secondary osteoporosis. HISTORY OF FRACTURE: None listed. MEDICATIONS: Vitamin D. MM/XR DEXA axial skeleton IMPRESSION: 1. DIAGNOSIS: Normal bone density based on the lowest T-score value of 0.3 in the femoral neck applying World Health Organization criteria. 2. 10-YEAR FRACTURE RISK PREDICTION, FRAX: According to the guidelines, FRAX calculation should only be performed on patients in the osteopenia bone density category. Therefore, FRAX was not performed on this patient. 3. Treatment Recommendations: NOF guidelines recommend consideration for treatment in postmenopausal women and men age 50 and older presenting with the following: -A hip or vertebral (clinical or morphometric) fracture. -T-score less than or equal to -2.5 at the femoral neck or spine after appropriate evaluation to exclude secondary causes. -Low bone mass at the hip or spine and a 10-year fracture probability by FRAX of greater than or equal to 3% for hip fracture or greater than or equal to 20% for major osteoporotic fracture based on the [place] adapted WHO algorithm. 4. Other Recommendations: All treatment decisions require clinical judgment and consideration of individual patient factors, including patient preferences, comorbidities, previous drug use, risk factors not captured in the FRAX model (e.g. frailty, falls, vitamin D deficiency, increased bone turnover, interval significant decline in bone density) and possible under or overestimation of fracture risk by FRAX. FUTURE SCAN RECOMMENDATION: People with diagnosed cases of osteoporosis or at high risk for fracture should have regular bone mineral density tests. For patients eligible for Medicare, routine testing is allowed once every 2 years. The testing frequency can be increased to one year for patients who have rapidly progressing disease, those who are receiving or discontinuing medical therapy to restore bone mass, or have additional risk factors.
== END 2023-07-06 14:50 | disposition home or self-care (01) ==
LOC: HO.MAMMO 14:49
PROVIDERS: PCP Nurse Practitioner Family; Visit Provider Nurse Practitioner Family
DX: Z13.820 Encounter for screening for osteoporosis (principal); Z78.0 Asymptomatic menopausal state
CPT/HCPCS: 77080

== ENCOUNTER 2023-07-30 13:34 | Outpatient (REF) | payer OTHER, SELFPAY ==
[2023-07-30 16:10] LABS: MANUAL DIFF FLAG NO
[2023-07-30 16:13] LABS: Appearance Urine Clear; Color Urine Yellow; Glucose Urine UA >=1000 mg/dL (Negative); Leukocyte Esterase Urine Negative (Negative); Nitrite Urine Negative (Negative); PH 5.5 (5.0-9.0); Specific Gravity - Urine >= 1.030 (1.005-1.025); UMIC TRIGGER UACC YES; Urine Blood Negative (Negative); Urine Ketones Trace mg/dL (Negative); Urine Protein Negative (Neg-Trace)
[2023-07-30 16:25] LABS: Bacteria Urine None Seen (None Seen); Hyaline Casts Urine 0-2 /LPF (0-2); RBC Urine 0-2 /HPF (0-2); Squamous Epithelial Cell Urine 0-2 /HPF (0-2); WBC Urine 0-5 /HPF (0-5)
[2023-07-30 16:34] LABS: Basophils Percent Auto 0.6 % (0-2); Eosinophils Absolute Auto 0.2 X10*3/uL (0.0-0.4); Eosinophils Percent Auto 2.2 % (0-4); Hematocrit 37.4 % (37.0-47.0); Hemoglobin 10.8 g/dl (12.0-16.0); Imm Gran Abs Auto 0.03 X10*3/uL (0.00-0.03); Imm Gran Pct Auto 0.4 % (0.0-0.4); Lymphocytes Absolute Auto 1.9 X10*3/uL (1.2-4.9); Lymphocytes Percent Auto 28.8 % (20-40); Mean Corpuscular HGB Conc 28.9 g/dl (31.0-35.0); Mean Corpuscular Volume 69.4 fL (80.0-98.0); Monocytes Absolute Auto 0.6 X10*3/uL (0.1-1.2); Monocytes Percent Auto 8.9 % (2-11); Neutrophils Percent Auto 59.1 % (45-73); Platelet Count 425 X10*3/uL (160-400); Red Blood Count 5.39 X10*6/uL (4.20-5.50); Red Cell Distribution Width 19.1 % (11.0-16.0); White Blood Count 6.7 X10*3/uL (4.8-10.8)
[2023-07-30 16:50] LABS: Alanine Aminotransferase 10 U/L (0-31); Albumin Level 4.3 g/dL (3.5-5.0); Alkaline Phosphatase 108 U/L (39-117); Anion Gap 17 (12-20); Aspartate Amino Transferase 12 U/L (5-31); Bilirubin Total 0.2 mg/dL (0.0-1.0); Blood Urea Nitrogen 13 mg/dL (9-16); Carbon Dioxide 24 mmol/L (22-29); Chloride 102 mmol/L (96-108); Estimated Glomerular Filt Rate > 60; Glucose Random 105 mg/dL (60-115); Iron 29 mcg/dL (30-160); Percent Iron Saturation 8 % (15-50); Potassium 4.1 mmol/L (3.3-5.1); Sodium 139 mmol/L (135-145); Total Iron Binding Capacity 365 mcg/dL (228-428); Total Protein 7.8 g/dL (6.5-8.0); Unsaturated Iron Binding 336 ug/dL
[2023-07-30 17:07] LABS: Ferritin 8 ng/mL (10-250); Vitamin D 25-OH Total 30.1 ng/mL (>30)
[2023-08-03 15:18] LABS: Hematocrit 35.5 % (35.0-45.0); Hemoglobin 10.5 g/dL (11.7-15.5); MCH 20.1 pg (27.0-33.0); MCV 67.9 fL (80.0-100.0); RBC 5.23 Million/uL (3.80-5.10); RDW 18.5 % (11.0-15.0)
== END 2023-07-30 13:35 | disposition home or self-care (01) ==
LOC: HO.HMGCLDS 13:34
PROVIDERS: PCP Nurse Practitioner Family; Visit Provider Nurse Practitioner Family
DX: D64.9 Anemia, unspecified (principal); E11.9 Type 2 diabetes mellitus without complications; Z78.0 Asymptomatic menopausal state; E55.9 Vitamin D deficiency, unspecified
CPT/HCPCS: 36415; 80053; 81001; 82306; 82728; 83020; 83540; 85014; 85018; 85025; 85041

== ENCOUNTER 2023-08-04 14:27 | Outpatient (AMB) | payer OTHER, SELFPAY ==
[2023-08-04 14:32] VITALS: BP 140/62; PULSE 100; O2SAT 98; BMI 29.2
--- NOTE | 2023-08-04 14:32 | A.OFFVIS_ITS ---
Intake Vital Signs 08/04/23 14:32 Height 5 ft 2 in Weight 159 lb 9.835 oz BMI 29.2 BP 140/62 H Blood Pressure Location Rt brachial Position Sitting Pulse 100 Pulse Source Pulse Oximeter Pulse Oximetry (%) 98 Oxygen Delivery Method Room Air Intake Visit Reasons: 6 week follow up Intake Note: Pt presents to the office today for a 6 week follow up for constipation. Pt states she is still having issues with constipation. Pt states she has not had a bowel movement in 5 days as of right now. Pt denies any nausea or vomiting. Allergies sitagliptin [From Januvia] Allergy (Verified 08/04/23 14:33) diarrhea vomiting HPI 6 week follow up HPI Details LAST VISIT: Positive colorectal cancer screening using Cologuard test Afib Systolic murmur Constipation Plan History of AFib, on Eliquis. Occasional shortness of breath and edema to bilateral lower extremities. Will send patient for cardiac risk stratification. Patient also is not moving her bowels well. Will start taking Senokot daily. I will see her in 6 weeks to discuss going for colonoscopy and making sure that patient is moving her bowels. Please book colonoscopy for patient. Patient is agreeable to plan of care and verbalizes understanding of instructions. She was given the opportunity to ask questions and all questions answered. ? TODAY'S VISIT Patient is here today for follow-up and to discuss going for colonoscopy. Patient is still feeling constipated. She states that she take Senokot 2 tablets every day in she is unable to move her bowels. Sometimes no BM for 3-5 days. Patient denies melena, hematochezia, unintentional weight loss or ribbon like stools. As mentioned above patient did have positive Cologuard. History of AFib and has an appointment with staff software engineer in the [place] in the patient for pre evaluation before going for colonoscopy. Patient denies dyspepsia, dysphagia or odynophagia. No history of sleep apnea no issues with anesthesia in the past. Patient is on semaglutide we will need to make sure that she stops it 7 days before going for procedure. [facility] Medical History Edema Family History Mother No problems noted. Father No problems noted. Social History Housing: Apartment Patient Tobacco Use Status: Never used Tobacco e-Cigarette/Vaping Use: Never Used Second Hand Smoke Exposure: No service: No Current occupational status: retired Cognitive needs: No Hearing needs: No Vision needs: No Review of Systems Const Denies weight gain and Denies weight loss ENT Reports no additional complaints, Denies dysphagia and Denies odynophagia Card Reports no additional complaints Resp Reports no additional complaints GI Denies abdominal pain, Denies belching, Denies melena, Reports bloating, Reports constipation, Denies dysphagia, Denies excessive flatus, Denies dyspepsia, Denies heartburn, Denies diarrhea, Denies loose stools, Denies nausea, Denies odynophagia and Denies vomiting Reports no additional complaints Musc Reports no additional complaints Neuro Reports no additional complaints Psych Reports no additional complaints Endo Reports no additional complaints Physical Exam Vital Signs: Last Vital Signs Pulse 100 08/04/23 14:32 BP 140/62 H 08/04/23 14:32 Pulse Ox 98 08/04/23 14:32 Oxygen Delivery Method Room Air 08/04/23 14:32 BMI result Body Mass Index 29.2 Const General: healthy appearing, no acute distress and well developed Nutritional Appearance: obese Orientation/consciousness: patient oriented x3 HEENT Head: Yes normal to inspection, Yes normocephalic and Yes atraumatic Face and sinus: Yes normal facial exam Mouth: Normal oral and palatal mucosa present Throat: Yes posterior oropharynx normal, Yes tonsils normal and Yes uvula midline Eyes General: appearance normal, both eyes and all related structures Neck Neck: Yes normal visual inspection, Yes full ROM and Yes trachea midline Thyroid: Thyroid normal Resp Effort & Inspection: normal respiratory effort, able to speak in complete sentences, no tracheal deviation and symmetric chest movement Auscultation: clear to auscultation bilaterally Cardio Rate: regular rate Heart sounds: S1 normal heart sound present and S2 normal heart sound present GI Inspection: Yes normal to inspection, No distended and Yes obesity Palpation (GI): Soft to palpation, not firm, nontender and No hepatosplenomegaly present Auscultation: normal bowel sounds General: Yes no CVA tenderness Back/Spine/Pelvis Back: no CVA tenderness Skin General skin exam: elasticity normal, turgor normal and dry skin Neuro General: patient oriented x3 Psych Appearance: grossly normal Mental Status: mental status grossly normal Assessment & Plan Assessment & Plan (1) Positive colorectal cancer screening using Cologuard test: Code(s): R19.5 - Other fecal abnormalities (2) Chronic idiopathic constipation: Code(s): K59.04 - Chronic idiopathic constipation Plan: What to expect before during and after the procedure discussed with patient. Patient has an appointment with staff software engineer in September. We can book her for end of October. Patient is on Eliquis for AFib. Discussed with patient the importance of good bowel prep. Patient can start taking Dulcolax tablets every day and stop taking senna. Patient will call the office if she will continue to be constipated. I will see her in 5 weeks we can go over colonoscopy. Will make sure that patient is able to move her bowels better. Patient is agreeable to this plan and verbalizes understanding of instructions. She was given the opportunity to ask questions and all questions answered. Thank you for allowing me to participate in her care Medications: New bisacodyl (Dulcolax (bisacodyl)) 10 mg (2 x 5 mg) PO BEDTIME 180 tabs 4RF polyethylene glycol 3350 (Miralax) 17 grams PO DAILY 510 grams 2RF Discontinued sennosides Discontinued Reason: Doctor's Order 17.2 mg (2 x 8.6 mg) PO BEDTIME 60 tabs 1RF constipation K59.00 - Constipation, unspecified Coding Level of Care Code Est Pt Level 3 (11323) Diagnoses Positive colorectal cancer screening using Cologuard test R19.5 Chronic idiopathic constipation K59.04 Time Spent (min) 25 Comment 15 minutes spent with patient and additional 10 minutes spent reviewing her records
== END 2023-08-04 14:59 | disposition home or self-care (01) ==
PROVIDERS: PCP Nurse Practitioner Family; Visit Provider Nurse Practitioner Family
DX: R19.5 Other fecal abnormalities (principal); K59.04 Chronic idiopathic constipation
CPT/HCPCS: 99213

== ENCOUNTER → 2023-08-04 14:27 | Outpatient (BNVA) | payer OTHER, SELFPAY | PROVIDERS: PCP Nurse Practitioner Family; Visit Provider Nurse Practitioner Family | DX: R19.5 Other fecal abnormalities (principal); K59.04 Chronic idiopathic constipation | CPT/HCPCS: 99212 ==

== ENCOUNTER 2023-08-09 14:16 | Outpatient (REF) | payer OTHER, SELFPAY ==
[2023-08-09 15:51] LABS: MANUAL DIFF FLAG NO
[2023-08-09 16:05] LABS: Basophils Percent Auto 0.6 % (0-2); Eosinophils Absolute Auto 0.1 X10*3/uL (0.0-0.4); Eosinophils Percent Auto 2.1 % (0-4); Hemoglobin 10.4 g/dl (12.0-16.0); Imm Gran Abs Auto 0.03 X10*3/uL (0.00-0.03); Imm Gran Pct Auto 0.5 % (0.0-0.4); Lymphocytes Absolute Auto 2.5 X10*3/uL (1.2-4.9); Lymphocytes Percent Auto 37.3 % (20-40); Mean Corpuscular HGB Conc 28.9 g/dl (31.0-35.0); Mean Corpuscular Hemoglobin 20.1 pg (27.0-33.0); Mean Corpuscular Volume 69.5 fL (80.0-98.0); Mean Platelet Volume 9.7 fL (9.4-12.3); Monocytes Absolute Auto 0.5 X10*3/uL (0.1-1.2); Monocytes Percent Auto 7.6 % (2-11); Neutrophils Absolute Auto 3.4 x10*3/uL (2.0-8.3); Neutrophils Percent Auto 51.9 % (45-73); Platelet Count 425 X10*3/uL (160-400); Red Blood Count 5.18 X10*6/uL (4.20-5.50); Red Cell Distribution Width 19.9 % (11.0-16.0); White Blood Count 6.6 X10*3/uL (4.8-10.8)
== END 2023-08-09 14:17 | disposition home or self-care (01) ==
LOC: HO.HMGCLDS 14:16
PROVIDERS: PCP Nurse Practitioner Family; Visit Provider Nurse Practitioner Family
DX: D64.9 Anemia, unspecified (principal)
CPT/HCPCS: 36415; 85025

== ENCOUNTER 2023-08-13 12:15 | Outpatient (REF) | payer OTHER, SELFPAY ==
[2023-08-14 07:50] LABS: FIT1 NEGATIVE (NEGATIVE)
[2023-08-14 07:51] LABS: FIT Int Ctl YES; FIT2 NEGATIVE (NEGATIVE)
== END 2023-08-13 12:16 | disposition home or self-care (01) ==
LOC: HO.HMGCLNP 12:15
PROVIDERS: PCP Nurse Practitioner Family; Visit Provider Nurse Practitioner Family
DX: D64.9 Anemia, unspecified (principal)
CPT/HCPCS: 82274

== ENCOUNTER → 2023-09-20 13:32 | Outpatient (BNV) | payer OTHER, SELFPAY | PROVIDERS: PCP Nurse Practitioner Family; Referring Provider Nurse Practitioner Family; Visit Provider Internal Medicine Medical Oncology | DX: D64.9 Anemia, unspecified (principal) | CPT/HCPCS: 99204 ==

== ENCOUNTER 2023-09-22 10:38 | Outpatient (AMB) | payer OTHER, SELFPAY ==
[2023-09-22 10:50] VITALS: BP 130/58; PULSE 95; BMI 28.7
--- NOTE | 2023-09-22 10:50 | MHC.OFFVIS ---
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 by: Self / Same As Patient Allergies sitagliptin [From [facility]] Allergy (Verified 09/20/23 13:38) diarrhea vomiting Medication List - Last Reconciled 09/22/23 by Dimas Messer MD albuterol sulfate 90 mcg/actuation 2 inhalations inhalation Q4-6H PRN albuterol sulfate 90 mcg/actuation 2 puffs inhalation Q4H PRN apixaban (Eliquis) 5 mg PO BID aspirin 81 mg PO DAILY atorvastatin 20 mg PO DAILY cetirizine 10 mg PO DAILY cyanocobalamin (vitamin B-12) 500 mcg PO DAILY empagliflozin (Jardiance) 25 mg PO DAILY ferrous sulfate 325 mg PO DAILY fluticasone propionate 50 mcg/actuation 50 sprays intranasal DAILY glipizide ER 20 mg PO DAILY incontinence pad, liner, disp (Prevail Panty Liner pads) As directed lisinopril 2.5 mg PO DAILY metformin 1,000 mg PO BID metoprolol succinate ER 50 mg PO DAILY mirabegron ER (Myrbetriq) 25 mg PO DAILY omeprazole 40 mg PO DAILY polyethylene glycol 3350 (Miralax) 17 grams PO DAILY salmeterol (Serevent Diskus) 1 inh inhalation BID semaglutide 1 mg (0.75 mL) subcut QWEEK [skin care wipes As directed] HPI HPI Comments History of Present Illness Details Thank you for referring will the in cardiology consultation today for management of paroxysmal atrial fibrillation. She is a pleasant 68-year-old woman with past medical history of diabetes, paroxysmal atrial fibrillation with a systolic murmur noted in the past with recent echocardiogram showing normal LV ejection fraction 55-60% with calcific aortic and mitral valve disease with mild aortic and mild mitral regurgitation noted. Patient has no current symptoms. She is been maintained on oral anticoagulation therapy with Eliquis. She was recently noted to be anemic and has been seen by Hematology and subsequently GI for further workup for GI blood loss. She is referred here for further evaluation from cardiac perspective. She says she walks avidly and has no exertional symptoms of chest pain or shortness of breath. She denies any symptoms of heart failure. Denies any prolonged palpitation irregular heartbeat. She is taking all her medications regularly. She has not noted any major bleeding issues. Denies any lightheadedness, syncope. [facility] Medical History (Updated 09/24/23 @ 13:41 by Dimas Messer MD) Paroxysmal atrial fibrillation Edema Family History Mother No problems noted. Father No problems noted. Social History Housing: Apartment Patient Tobacco Use Status: Never used Tobacco e-Cigarette/Vaping Use: Never Used Second Hand Smoke Exposure: No service: No Current occupational status: retired Cognitive needs: No Hearing needs: No Vision needs: No Review of Systems Const Reports chills, Reports fatigue, Reports fever(s), Reports frequent falls, Reports weakness, Reports weight gain and Reports weight loss ENT Reports dizziness Card Reports chest pain, Reports leg edema, Reports lightheadedness, Reports palpitations, Reports dyspnea, Reports dyspnea on exertion and Reports orthopnea Resp Reports cough, Reports dyspnea and Reports dyspnea on exertion GI Reports bloating and Reports change in bowel habits Musc Reports muscle weakness, Reports numbness and Reports tingling Neuro Reports dizziness, Reports frequent falls, Reports numbness, Reports tingling and Reports weakness Endo Reports fatigue and Reports palpitations Physical Exam Vital Signs: Last Vital Signs Pulse 95 09/22/23 10:50 BP 130/58 L 09/22/23 10:50 BMI result Body Mass Index 28.7 Const General: cooperative, comfortable, no acute distress, alert, awake, Physically active and well groomed Nutritional Appearance: overweight Orientation/consciousness: patient oriented x3 Limitations: no limitations HEENT Head: Yes normocephalic and Yes atraumatic Neck Neck: Yes trachea midline, Yes supple and Yes no JVD Resp Effort & Inspection: normal respiratory effort Auscultation: clear to auscultation bilaterally Cardio Jugular venous distension: no JVD Palpation: normal PMI Rate: regular rate Rhythm: regular rhythm Heart sounds: S1 normal heart sound present, S2 normal heart sound present, no click, no gallops and Murmur heart sound present systolic early GI Auscultation: normal bowel sounds Skin General skin exam: no rashes or lesions noted Neuro General: patient oriented x3 and no focal motor deficits Extrem General: Yes no clubbing, cyanosis or edema Psych Appearance: grossly normal Office Procedures EKG Details: EKG shows normal sinus rhythm with QS pattern in lead V1 V2 from lead placement [id number], Complete Assessment & Plan Assessment & Plan (1) Paroxysmal atrial fibrillation: Code(s): I48.0 - Paroxysmal atrial fibrillation Plan: Paroxysmal atrial fibrillation, symptomatic with no obvious recurrent symptoms at this point time. Continue rhythm control approach. Currently doing well from medical therapy. Continue metoprolol therapy. Avoidance of stimulants was discussed. CHADSVASc score of at least 3. Continue full oral anticoagulation, currently on Eliquis 5 mg b.i.d.. Semi annual renal function test should be pursued. If anemia becomes a significant issue and no obvious cause is found, can consider alternative such as Watchman device. (2) Preoperative cardiovascular examination: Code(s): Z01.810 - Encounter for preprocedural cardiovascular examination Plan: Preoperative cardiovascular risk stratification prior to GI procedure. Patient is low risk for perioperative cardiovascular morbidity mortality with excellent functional capacity. No further workup is indicated. Continue all medicines with exception of oral anticoagulation which can be at the discretion of GI physician. Will follow up in 1 year's time, sooner p.r.n. Coding Level of Care Code New Pt Level 4 (54590) Diagnoses Paroxysmal atrial fibrillation I48.0 Preoperative cardiovascular examination Z01.810 CPT Codes EKG - CPT: 14899-[id number], Complete ([id number])
== END 2023-09-22 11:27 | disposition home or self-care (01) ==
PROVIDERS: PCP Nurse Practitioner Family; Visit Provider Internal Medicine Cardiovascular Disease
DX: I48.0 Paroxysmal atrial fibrillation (principal); Z01.810 Encounter for preprocedural cardiovascular examination
CPT/HCPCS: 93010; 99214

== ENCOUNTER → 2023-09-22 10:38 | Outpatient (BNVA) | payer OTHER, SELFPAY | PROVIDERS: PCP Nurse Practitioner Family; Visit Provider Internal Medicine Cardiovascular Disease | DX: Z01.810 Encounter for preprocedural cardiovascular examination (principal); I48.0 Paroxysmal atrial fibrillation | CPT/HCPCS: 93005; 99212 ==

== ENCOUNTER 2023-10-21 12:47 | Outpatient (AMB) | payer OTHER, SELFPAY ==
--- NOTE | 2023-10-21 13:00 | A.OFFPC_ITS ---
Vital Signs 10/21/23 13:06 Weight 156 lb BP 118/56 L Blood Pressure Location Rt brachial Position Sitting Pulse 98 Pulse Source Pulse Oximeter Pulse Oximetry (%) 99 Oxygen Delivery Method Room Air Intake Visit Reasons: 4 month fu Intake Note: Patient here for diabetes follow up. pt states sugars have been good and for the most part stable. Allergies sitagliptin [From Januvia] Allergy (Verified 10/21/23 13:03) diarrhea vomiting Tobacco use date assessed: 10/21/23 Fall risk assessment: No Falls in past year Last assessed Fall Risk: 10/21/23 Dental Screening Dental Screen Date: 10/21/23 Did you have a dental visit in the last 12 months?: No Did you have a dental problem in the last 6 months where you did not have access to dental care?: No Was dental information given to patient?: Patient has dentist HPI 4 month fu HPI Details Pt is a diabetic, on an BERNICE and a statin. A1C in office today is 7.2. Microalbumin is up to date. Denies polyuria, polydipsia, and neuropathy. Pt denies any signs and symptoms of hypoglycemia and does know how to correct it. P t reports that her blood sugar has been averaging in the 80s-low 100s. She has been off her ozempic for over a month, will continue this med, resent today. Pt reports fecal leakage. She reports that after wiping she notices stool leaking, especially after hours after morning BM. Will refer to GI. [facility] Medical History (Updated 10/21/23 @ 13:18 by ISMAEL Maier) Paroxysmal atrial fibrillation Edema Family History Mother No problems noted. Father No problems noted. Social History Housing: Apartment Patient Tobacco Use Status: Never used Tobacco e-Cigarette/Vaping Use: Never Used Second Hand Smoke Exposure: No service: No Current occupational status: retired Cognitive needs: No Hearing needs: No Vision needs: No Questionnaire PHQ-9 Over the last 2 weeks, how often have you been bothered by any of the following problems? 1. Little interest or pleasure in doing things: not at all 2. Feeling down, depressed, or hopeless: not at all 3. Trouble falling or staying asleep, or sleeping too much: not at all 4. Feeling tired or having little energy: not at all 5. Poor appetite or overeating: several days 6. Feeling bad about yourself - or that you are a failure or have let yourself or your family down: not at all 7. Trouble concentrating on things, such as reading the newspaper or watching television: not at all 8. Moving or speaking so slowly that other people could have noticed. Or the opposite - being so fidgety or restless that you have been moving around a lot more than usual: not at all 9. Thoughts that you would be better off or of hurting yourself in some way: not at all Total score: 1 Depression Screening Interpretation: Negative Depression Screening Done: Yes 71447 - PHQ-9 Billing: Yes Source: Developed by Drs. Gonsalo Gomez, Jerilny Doe, Santiago Wakefield and colleagues, with an educational yung from [employer]. Thrive Questionnaire Date Thrive assessed: 10/21/23 I am a: Patient What is your living situation today?: I have a steady place to live Within the past 12 months, did the food you bought not last and you didn't have the money to get more?: Sometimes True Within the past 12 months, did you worry whether your food would run out before you got money to buy more?: Never true Do you have trouble paying for medicines?: No Do you have trouble getting transportation to medical appointments?: No Do you have trouble paying your heating and electricity bill?: No Do you have trouble taking care of your child, family member or friend?: No Do you have trouble with day-to-day activities such as bathing, preparing meals, shopping, managing finances, etc.?: No Are you currently unemployed and looking for a job?: Yes Are you interested in more education?: No Currently or been in a relationship where the following occur: no concerns reported TOMEKA-7 AMB Questionnaire TOMEKA-7 Date TOMEKA - 7 assessed: 10/21/23 Feeling nervous, anxious, or on edge: 0 = Not at all Not being able to stop or control worryin = Not at all Worrying too much about different things: 0 = Not at all Trouble relaxin = Not at all Being so restless that it is hard to sit still: 0 = Not at all Becoming easily annoyed or irritable: 0 = Not at all Feeling afraid as if something awful might happen: 0 = Not at all Total TOMEKA-7 score (0-4 normal; 5-9 mild; 10-14 moderate; 15-21 severe): 0 Source: Developed by Drs. Gonsalo Gomez, Jerilyn Doe, Snatiago Wakefield and colleagues, with an educational yung from [employer]. TOMEKA-7 Assessment Billing TOMEKA-7 Assessment Tool: TOMEKA-7 Assessment 07777 Review of Systems Const Reports as per HPI Physical exam (Primary Care) Vital Signs: Last Vital Signs Pulse 98 10/21/23 13:06 BP 118/56 L 10/21/23 13:06 Pulse Ox 99 10/21/23 13:06 Oxygen Delivery Method Room Air 10/21/23 13:06 Tobacco/Smoking Status: Tobacco use Status Tobacco use date assessed 10/21/23 10/21/23 13:07 Patient Tobacco Use Status Never used Tobacco 10/21/23 13:05 e-Cigarette/Vaping Use Never Used 10/21/23 13:05 Depression Screening Interpretation: Negative Thrive Assessment: Date of Thrive Assessment Date Thrive assessed 11/02/22 10/21/23 13:05 Currently or been in a relationship where the following occur: no concerns reported Const General: cooperative Orientation/consciousness: patient oriented x3 Resp Effort & Inspection: normal respiratory effort Auscultation: clear to auscultation bilaterally Cardio Rate: regular rate Rhythm: regular rhythm Heart sounds: S1 normal heart sound present, S2 normal heart sound present and Murmur heart sound present systolic Neuro General: patient oriented x3 Extrem Other: bilat feet: + sensation with use of monofilament Psych Appearance: grossly normal Mental Status: mental status grossly normal Speech and movement: Normal speech and movement present Affect: normal affect Attitude: cooperative Thought process: Normal thought process present Thought content: Normal thought content present Insight: Good insight present (Psych) Judgement: Good judgement present (Psych) Results AMB Hemoglobin A1c AMB Hemoglobin A1c 7.2 % Last Edit by MADAI Encarnacion on 10/21/23 13 :35 Immunizations pneumoc 20-darlene conj-dip cr(PF) 0.5 mL IM syringe Performing Provider: ISMAEL Maier Performing Location: [facility] [place] [facility] Administered by: MADAI Encarnacion on 10/21/23 13:34 Dose Route Admin Location Dispensed Lot Number Expiration Date NDC Dock Hand 0.5 mL IM Left Deltoid 0.5 mL [id number] 12/09/24 1399-6491-41 WYETH/PFIZER VIS Given Date VIS Provided VIS Publication Date 10/21/23 Single Vaccine 21 Eligibility Eligibility Date Funding Source Not VFC Eligible 10/21/23 Private Assessment and Plan Assessment & Plan (1) Fecal soiling: Code(s): R15.1 - Fecal smearing Plan: referring to GI (2) Diabetes mellitus: Code(s): E11.9 - Type 2 diabetes mellitus without complications Plan: continue same treatment plan Plan The patient agreed to the use of a medical consultant for this encounter. Scribed for ISMAEL Humphrey by candelaria Duff scribe, on 10/21/2023 at 13:15 EST. Orders: Orders Pneumococcal 20 Immunization Today Z23 - Encounter for immunization AMB Hemoglobin A1c Today E11.9 - Type 2 diabetes mellitus without complications Referrals Gastroenterology Referral R15.1 - Fecal smearing Medications: Refilled semaglutide 1 mg (0.75 mL) subcut QWEEK 9 mL 2RF E11.9 - Type 2 diabetes mellitus without complications Coding Level of Care Code Est Pt Level 3 (26318) Diagnoses Fecal soiling R15.1 Diabetes mellitus E11.9 Additional Codes TOMEKA-7 Assessment Billing - TOMEKA-7 Assessment Tool: TOMEKA-7 Assessment 32656 ([id number])
[2023-10-21 13:06] VITALS: BP 118/56; PULSE 98; O2SAT 99
== END 2023-10-21 13:32 | disposition home or self-care (01) ==
PROVIDERS: PCP Nurse Practitioner Family; Visit Provider Nurse Practitioner Family
DX: E11.9 Type 2 diabetes mellitus without complications (principal); R15.1 Fecal smearing; Z23 Encounter for immunization
CPT/HCPCS: 83036; 90471; 90677; 99213

== ENCOUNTER 2023-11-09 08:54 | Day surgery (SDC) | payer OTHER, SELFPAY ==
[2023-11-05 14:51] VITALS: BMI 28.5
[2023-11-09 09:28] VITALS: BMI 27.9
[2023-11-09 09:47] VITALS: BP 145/66; PULSE 103; RESP 18; TEMP 36.6; O2SAT 100
--- NOTE | 2023-11-09 09:47 | HO.ANESPROP2 ---
HPI - Anesthesia Eval Consult details Narrative: for colonoscopy, stopped ozempic and eliquis appropriately Anesthesia Pre-Procedure Meds Is the patient on any of the following meds?: Semaglutide (Ozempic) If Yes to any meds - educate patient: Pt education - increased risk of aspiration and Pt education - possibility of cancelled proc at provider's discretion PMFSH Active Problems Active Problems: All Active Problems (Updated 11/05/23 @ 14:53 by Ashleigh Enriquez RN) Fecal soiling (Acute) Postmenopausal (Acute) Positive colorectal cancer screening using Cologuard test (Acute) Anemia (Acute) Asthmatic bronchitis (Acute) Reactive airway disease (Acute) Right shoulder pain (Acute) B12 deficiency (Acute) Systolic murmur (Acute) Diabetes mellitus (Acute) Paroxysmal atrial fibrillation (Acute) Edema (Acute) Past Medical History Medical History Diabetes Murmur Anemia Paroxysmal atrial fibrillation Edema Family History Family History Mother No problems noted. Father No problems noted. Family history of problems with anesthesia: No Surgical History Surgical History History of carpal tunnel surgery of right wrist Hx of hand surgery History of Problems with Anesthesia: No Social History Social History Housing: Apartment Patient Tobacco Use Status: Never used Tobacco e-Cigarette/Vaping Use: Never Used Second Hand Smoke Exposure: No Are you DNR?: No Advance Directives: No Advance Directives Information Provided: Yes Nutrition Risks: No Nutritional Risk service: No Current occupational status: retired Cognitive needs: No Hearing needs: No Vision needs: No Meds Allergies Allergy/AdvReac Type Severity Reaction Status Date / Time sitagliptin [From Octuvia] Allergy Intermediate diarrhea/vo Verified 11/09/23 09:35 miting Active Medications: Current Medications Lactated Ringer's (Lr) 1,000 mls @ 80 mls/hr IVCONT .[id number] COLLEEN Sodium Biphosphate/Sodium Phosphate (Sodium Phosphate,Victoria-Dibasic 133 Ml Enema) 133 ml TN ONCE PRN PRN Reason: poor bowel prep Home Medications Medication Instructions Recorded Confirmed Last Taken Type cetirizine 10 mg tablet 10 mg PO DAILY 06/29/22 11/05/23 Unknown History cyanocobalamin (vitamin B-12) 500 500 mcg PO DAILY 06/29/22 11/05/23 Unknown History mcg tablet fluticasone propionate 50 50 spray intranasal DAILY 06/29/22 11/05/23 Unknown History mcg/actuation nasal spray,suspension metformin 1,000 mg tablet 1,000 mg PO BID 06/29/22 11/05/23 Unknown History metoprolol succinate 50 mg 50 mg PO DAILY 06/29/22 11/05/23 Unknown History tablet,extended release 24 hr mirabegron 25 mg tablet,extended 25 mg PO DAILY 06/29/22 11/05/23 Unknown History release 24 hr (Myrbetriq) omeprazole 40 mg capsule,delayed 40 mg PO DAILY 06/29/22 11/05/23 Unknown History release apixaban 5 mg tablet (Eliquis) 5 mg PO BID 11/02/22 11/05/23 11/06/23 History atorvastatin 20 mg tablet 20 mg PO DAILY 11/02/22 11/05/23 Unknown History glipizide 10 mg tablet, extended 20 mg PO DAILY 11/02/22 11/05/23 Unknown History release 24 hr albuterol sulfate 90 mcg/actuation 2 puff inhalation Q4H PRN Wheezing 12/21/22 11/05/23 Unknown History aerosol inhaler Exam Height,Weight and Vital Signs: Height 5 ft 2 in Weight 69.127 kg Airway Mallampati Class: II TM Dist: >3cm Neck ROM: Full Heart: rrr Lungs: cta Assessment and Plan Assessment Anesthesia Assessment: Anesthesia Plan Discussed and Chart Reviewed Final Anesthetic Review Family History of Problems with Anesthesia: No History of Problems with Anesthesia: No NPO: Yes ASA Class: III Final Preanesthetic Review: No Changes in Pt Med Stat, Meds/Allgs Chart Reviewed, Consent Obtained/Reviewed and Anes Risks/Benef Reviewed Patient Risk: Intermediate Procedure Risk: Low Anesthetic Plan Anesthetic Plan: MAC: Disposition: Standard PACU
[2023-11-09] MEDS: Lactated Ringers 1,000 ML 80 ML IVCONT (09:48)
[2023-11-09] MEDS: Sodium Phosphate,Mono-Dibasic 133 ML ENEMA PR (09:50)
[2023-11-09 09:51] LABS: Glucose, Whole Blood 194 mg/dL (60-115)
--- NOTE | 2023-11-09 09:56 | MHC.SHP ---
Pre-Procedural Eval Section A - 24 Hr Update-Section A only Date of Service: 11/09/23 Section B - Complete if H&P > 30 days Chief Complaint: Chronic idiopathic constipation,Other fecal abnorm Relevant Family History (Specify if Yes): No Relevant Social History: None Present Medications: see Short Stay Collaborative assessment Medical History: Significant History (Diabetes Murmur Anemia Paroxysmal atrial fibrillation Edema) History of Previous Operations: Relevant previous surgery/procedure and date(s) (History of carpal tunnel surgery of right wrist Hx of hand surgery) Allergies: Allergies Allergy/AdvReac Type Severity Reaction Status Date / Time sitagliptin [From Januvia] Allergy Intermediate diarrhea/vo Verified 11/09/23 09:35 miting Review of Systems Sugical H&P ROS: Negative: Constitution, Cardiovascular, Respiratory, Neurological, Psychiatric, Hem-Onc, Allergic/Immunologic, Gastrointestinal, Genitourinary, Musculoskeletal, Integumentary, Endocrine and Eyes/Ears/Nose/Throat Exam Surgical H&P Exam: Normal: HEENT, Normal: Heart, Normal: Lungs, Normal: Extremities, Normal: Abdomen, Normal: Skin and Normal: Neurological Plan Diagnosis/Plan: Unchanged I have reviewed the history and physical and performed a pertinent physical examination on my patient. No changes have occurred unless specified. Time Spent With Patient Time: Total time managing care of this patient today ____ minutes.
--- NOTE | 2023-11-09 10:29 | P.OP_ITS ---
Operative Note Operative Note Date of Service: 11/09/23 Narrative: Operative Information Procedure Description: Colonoscopy Indication: pos cologuard Anesthesia: MAC COLONOSCOPY Instrument: Olympus variable stiffness pediatric scope 190L then changed to ADULT scope due to tortuous colon Colonoscopy Monitoring: Vital signs and clinical assessment, continuous EKG monitoring, Pulse oximetry, Carbon Dioxide monitoring and blood pressure monitoring were done throughout the procedure. Colon withdrawal time was 10 minutes. Procedure: The patient was placed in the left lateral decubitis position and pre-procedure medications were administered. After a digital rectal examination of the ano-rectum, the video colonoscope was inserted into the rectum and advanced through the colon to the cecum/TI. The colonoscope was slowly withdrawn in a retrograde panoramic fashion and the colon mucosa was carefully examined including a retroflexed view of the rectum. Findings and interventions are described below. Procedure Difficulty: difficult, changed to adult scope and sigmoid lift done which helped a lot Findings: Terminal Ileum-normal Cecum:normal Ascending Colon: normal Transverse Colon -normal Descending Colon:normal Sigmoid Colon: normal Rectum: Retroflexion with small inflammed internal hemorrhoids, grade I Anorectum - normal Colon preparation: [place] Bowel Preparation Scale Right colon; 1-2 Transverse colon: 2 Left colon; 1-2 (0 = Unprepared colon segment with mucosa not seen due to solid stool that cannot be cleared. 1 = Portion of mucosa of the colon segment seen, but other areas of the colon segment not well seen due to staining, residual stool and/or opaque liquid. 2 = Minor amount of residual staining, small fragments of stool and/or opaque liquid, but mucosa of colon segment seen well. 3 = Entire mucosa of colon segment seen well with no residual staining, small fragments of stool or opaque liquid) Impression and Post Procedure Diagnosis: internal hemorrhoids tortuous colon Plan: High fiber diet leaflet Avoid straining at stool, epsom salts and sitz bath, anusol supps or cream Repeat Colonoscopy in 1 year or earlier if clinically indicated due to fair prep in some area Above findings were reviewed with the patient and relevant handouts were provided if indicated.
[2023-11-09 11:23] VITALS: BP 161/80; PULSE 94; RESP 16; TEMP 36.8; O2SAT 100
[2023-11-09 11:38] VITALS: BP 156/72; PULSE 93; RESP 16; TEMP 36.4; O2SAT 99
== END 2023-11-09 12:09 | disposition home or self-care (01) ==
PROVIDERS: PCP Nurse Practitioner Family; Visit Provider Internal Medicine Gastroenterology
PROC: 0DJD8ZZ Inspection of Lower Intestinal Tract, Via Natural or Artificial Opening Endoscopic (ICD-10-PCS; CPT 45378; principal; 2023-11-09 11:40)
DX: R19.5 Other fecal abnormalities (principal); K59.04 Chronic idiopathic constipation; Q43.8 Other specified congenital malformations of intestine; D64.9 Anemia, unspecified; K64.0 First degree hemorrhoids; I48.91 Unspecified atrial fibrillation; E11.9 Type 2 diabetes mellitus without complications; Z79.84 Long term (current) use of oral hypoglycemic drugs; Z79.85 Long-term (current) use of injectable non-insulin antidiabetic drugs; Z79.01 Long term (current) use of anticoagulants; Z79.899 Other long term (current) drug therapy; Z88.8 Allergy status to other drugs, medicaments and biological substances
CPT/HCPCS: 45378; 82947; J2704

== ENCOUNTER → 2023-11-09 08:54 | Outpatient (BNV) | payer OTHER, SELFPAY | PROVIDERS: PCP Nurse Practitioner Family; Visit Provider Internal Medicine Gastroenterology | DX: Z12.11 Encounter for screening for malignant neoplasm of colon (principal); R19.5 Other fecal abnormalities; K64.0 First degree hemorrhoids; K63.89 Other specified diseases of intestine | CPT/HCPCS: G0121 ==

== ENCOUNTER 2023-11-30 12:46 | Outpatient (AMB) | payer OTHER, SELFPAY ==
[2023-11-30 12:49] VITALS: BP 118/60; PULSE 89; TEMP 36.4; O2SAT 98; BMI 27.1
--- NOTE | 2023-11-30 12:49 | MHC.OFFWIV ---
Intake Vital Signs 11/30/23 12:49 Height 5 ft 2 in Weight 148 lb BMI 27.1 BP 118/60 Blood Pressure Location Lt brachial Position Sitting Pulse 89 Pulse Source Pulse Oximeter Temp 97.5 F Temp Source Temporal Artery Scan Pulse Oximetry (%) 98 Oxygen Delivery Method Room Air Intake Visit Reasons: EP Congestion, cough, headache [phone] Intake Note: pt is here today for congestion cough headache started 1 week ago Patient Tobacco Use Status: Never used Tobacco Allergies sitagliptin [From Januvia] Allergy (Intermediate, Verified 11/30/23 12:50) diarrhea/vomiting Do you need a note to return to daycare/school/sports/work: No HPI HPI Comments History of Present Illness Details Patient is a 68-year-old female in today for sick visit. Patient states for the past week she is experience symptoms of cough, chest congestion, sore throat headache. She has taken [id number] cough medicine with little relief. She has a past medical history significant for hypertension, type 2 diabetes, GERD, proximal AFib. Patient denies chest pain, shortness a breath, dizziness, numbness, nausea, vomiting, diarrhea. [facility] Medical History Diabetes Murmur Anemia Paroxysmal atrial fibrillation Edema Surgical History History of carpal tunnel surgery of right wrist Hx of hand surgery Family History Mother No problems noted. Father No problems noted. Social History Housing: Apartment Patient Tobacco Use Status: Never used Tobacco e-Cigarette/Vaping Use: Never Used Second Hand Smoke Exposure: No service: No Current occupational status: retired Cognitive needs: No Hearing needs: No Vision needs: No Review of Systems Const Details: Constitutional : No Weight loss, No Fever, No Chills, No Fatigue, No Malaise ENT/Mouth : No sore throat, No Rhinorrhea Eyes: No Eye Pain, No Swelling, No Redness Cardiovascular : No Chest Pain, No SOB, No Dyspnea on Exertion, No Orthopnea, No Edema, No Palpitations Respiratory : Admits Cough, Admits Sputum, Admits Wheezing Gastrointestinal : No Nausea, No Vomiting, No Diarrhea, No Constipation, No abdominal Pain, No Hematochezia, No Melena Genitourinary : No Dysuria, No Urinary Frequency, No Hematuria, Musculoskeletal : No joint pain, No Myalgias, No Joint Swelling Skin : No Skin Lesions, No rash Neuro : No Weakness, No Numbness, No Dizziness, No Headache Psych : No Anxiety/Panic, No Depression Heme/Lymph: No Bruising, No Bleeding,No Lymphadenopathy Endocrine : No Polyuria, No Polydipsia All other systems reviewed and are negative Physical Exam Vital Signs: Last Vital Signs Temp 97.5 F 11/30/23 12:49 Pulse 89 11/30/23 12:49 BP 118/60 11/30/23 12:49 Pulse Ox 98 11/30/23 12:49 Oxygen Delivery Method Room Air 11/30/23 12:49 BMI result Body Mass Index 27.1 Vital signs reviewed stable. Const Other: Appearance: Alert.? Oriented X3.? No acute distress.? Head: Normocephalic, atraumatic. Eyes: Pupils equal, round and reactive to light.? ENT: Pharynx normal.?TM impacted Cerumen Bilaterally, unable to visualize. Neck: Normal inspection.? Neck supple.?Full ROM. CVS: Normal heart rate and rhythm.? Pulses normal.? Respiratory: No respiratory distress.? Slight wheeze upper lobes bilaterally. ? Neuro: Oriented X 3.? No motor deficit.? No sensory deficit. CN 2-12 intact Assessment & Plan Assessment & Plan (1) Upper respiratory infection: Code(s): J06.9 - Acute upper respiratory infection, unspecified Qualifiers: URI type: unspecified URI Qualified Code(s): J06.9 - Acute upper respiratory infection, unspecified Plan: Will give patient prednisone to be taken as directed. Patient has been educated on side effects of medication. Patient has been educated on signs of worsening symptoms and when to report back to the walk-in or when to present to the emergency room. Patient states she understands. Plan Take your medications as prescribed. If you were prescribed antibiotics today, it is important that you take your medication to their entirety, do not skip any doses, do not finish them early. Follow-up with your primary care provider this week. Return to the emergency department with new or worsening symptoms. Such as fevers, chills, chest pain, shortness of breath, nausea, vomiting, dizziness, headache, vision changes, lethargy In case of emergency call 911 Orders: Orders SARS-CoV2/FLU/RSV Today J06.9 - Acute upper respiratory infection, unspecified Medications: New prednisone 20 mg PO BID 10 tabs 0RF Patient Instructions: Follow-up PCP. Coding Level of Care Code Est Pt Level 3 (54393) Diagnoses Upper respiratory tract infection, unspecified type J06.9 URI type: unspecified URI Time Spent (min) 20
== END 2023-11-30 15:09 | disposition home or self-care (01) ==
PROVIDERS: PCP Nurse Practitioner Family; Visit Provider Nurse Practitioner Primary Care
DX: J06.9 Acute upper respiratory infection, unspecified (principal)
CPT/HCPCS: 99213

== ENCOUNTER 2023-11-30 16:49 | Outpatient (REF) | payer OTHER, SELFPAY ==
[2023-11-30 18:14] LABS: Influenza A PCR NEGATIVE (Negative); Influenza B PCR NEGATIVE (Negative); Resp Syncy Virus RNA Qual PCR NEGATIVE (Negative); SARS COV2 PCR INHOUSE NEGATIVE (Negative)
== END 2023-11-30 16:50 | disposition home or self-care (01) ==
LOC: HO.LNP 16:49
PROVIDERS: Visit Provider Nurse Practitioner Primary Care
DX: J06.9 Acute upper respiratory infection, unspecified (principal)
CPT/HCPCS: 0241U

== ENCOUNTER 2023-12-17 14:01 | Outpatient (AMB) | payer OTHER, SELFPAY ==
[2023-12-17 14:06] VITALS: BP 112/60; PULSE 97; TEMP 36.2; O2SAT 97; BMI 26.9
--- NOTE | 2023-12-17 14:06 | AM.OFFWIN_ITS ---
Intake Vital Signs 12/17/23 14:06 Height 5 ft 2 in Weight 147 lb BMI 26.9 BP 112/60 Blood Pressure Location Lt brachial Position Sitting Pulse 97 Pulse Source Pulse Oximeter Temp 97.2 F Temp Source Temporal Artery Scan Pulse Oximetry (%) 97 Oxygen Delivery Method Room Air Intake Visit Reasons: EP Stomach Pain Intake Note: Pt is here today for stomach pain started 2 days ago Patient Tobacco Use Status: Never used Tobacco Allergies sitagliptin [From Januvia] Allergy (Intermediate, Verified 12/17/23 14:14) diarrhea/vomiting Do you need a note to return to daycare/school/sports/work: No HPI HPI Comments History of Present Illness Details 68 y/o female patient who presents to [facility] walk in clinic with c/o abdominal pain that started 2 days ago. Reports Constipation with hard stools. Denies diarrhea, nausea or vomiting. [facility] Medical History Diabetes Murmur Anemia Paroxysmal atrial fibrillation Edema Surgical History History of carpal tunnel surgery of right wrist Hx of hand surgery Family History Mother No problems noted. Father No problems noted. Social History Housing: Apartment Patient Tobacco Use Status: Never used Tobacco e-Cigarette/Vaping Use: Never Used Second Hand Smoke Exposure: No service: No Current occupational status: retired Cognitive needs: No Hearing needs: No Vision needs: No Review of Systems Const All systems reviewed & are unremarkable except as noted in HPI and below Physical Exam Vital Signs: Last Vital Signs Temp 97.2 F 12/17/23 14:06 Pulse 97 12/17/23 14:06 BP 112/60 12/17/23 14:06 Pulse Ox 97 12/17/23 14:06 Oxygen Delivery Method Room Air 12/17/23 14:06 BMI result Body Mass Index 26.9 Const General: comfortable and no acute distress Nutritional Appearance: overweight Orientation/consciousness: patient oriented x3 GI Other: Large, round and obese Palpation (GI): Soft to palpation, not firm, Tenderness to palpation present (GI) in the epigastrum, in the LLQ and in the LUQ, no guarding, not rigid and No hepatosplenomegaly present Auscultation: normal bowel sounds Rectal Exam - Female: deferred Neuro General: patient oriented x3 and moves all extremities Psych Speech and movement: Normal speech and movement present Attitude: cooperative Assessment & Plan Assessment & Plan (1) Constipation: Code(s): K59.00 - Constipation, unspecified Qualifiers: Constipation type: slow transit constipation Qualified Code(s): K59.01 - Slow transit constipation Plan: - Increase Fiber intake - Eat a diet consisting with Veggies and Fruits - Hydrate well with plenty of water. Medications: New sennosides (Senokot) 17.2 mg (2 x 8.6 mg) PO BEDTIME 30 tabs 0RF K59.01 - Slow transit constipation docusate sodium (Colace) 100 mg PO BID 60 caps 0RF K59.01 - Slow transit constipation Coding Level of Care Code Est Pt Level 3 (76273) Diagnoses Slow transit constipation K59.01 Constipation type: slow transit constipation Time Spent (min) 15
== END 2023-12-17 15:36 | disposition home or self-care (01) ==
PROVIDERS: PCP Nurse Practitioner Family; Visit Provider Nurse Practitioner Family
DX: K59.01 Slow transit constipation (principal)
CPT/HCPCS: 99213

== ENCOUNTER 2023-12-18 02:45 | Emergency (ER) | payer OTHER, SELFPAY ==
--- NOTE | 2023-12-18 | ECG_ITS ---
Test Reason : CHEST PAIN Blood Pressure : / mmHG Vent. Rate : 100 BPM Atrial Rate : 100 BPM P-R Int : 144 ms QRS Dur : 086 ms QT Int : 346 ms P-R-T Axes : 042 -31 070 degrees QTc Int : 446 ms Sinus rhythm with occasional Premature ventricular complexes Left axis deviation Septal infarct , age undetermined Abnormal ECG No previous ECGs available Referred By: Generic ED Physician Electronically Signed By:Doyle Aguirre
--- NOTE | ~2023-12-18 | XR_ITS ---
EXAMINATION: XR CHEST CLINICAL INFORMATION: Left-sided pleuritic pain COMPARISON: 12/02/2022 TECHNIQUE: 2 views of the chest were obtained. FINDINGS: The lungs are clear with no focal consolidation. No evidence of pneumothorax, pulmonary edema, or pleural effusions. Cardiac size is within normal limits. Calcification is present at the aortic arch. No acute osseous findings are seen. XR/XR chest 2V IMPRESSION: No acute cardiopulmonary findings.
[2023-12-18 02:48] VITALS: BP 173/84; PULSE 99; RESP 18; TEMP 36.3; O2SAT 100; BMI 26.9
[2023-12-18 03:22] LABS: Hematocrit 40.4 % (37.0-47.0); Hemoglobin 12.4 g/dl (12.0-16.0); Mean Corpuscular HGB Conc 30.7 g/dl (31.0-35.0); Mean Corpuscular Hemoglobin 23.8 pg (27.0-33.0); Mean Corpuscular Volume 77.7 fL (80.0-98.0); Mean Platelet Volume 9.2 fL (9.4-12.3); Platelet Count 298 X10*3/uL (160-400); Red Cell Distribution Width 19.4 % (11.0-16.0); White Blood Count 6.7 X10*3/uL (4.8-10.8)
[2023-12-18 03:23] VITALS: BP 193/89; PULSE 96; PULSE 97; RESP 11; TEMP 36.7; O2SAT 98
[2023-12-18 03:29] LABS: INTERNATIONAL NORM RATIO 1.3 (0.9-1.1); Prothrombin Time 15.2 SEC (11.1-13.3)
[2023-12-18 03:39] LABS: Alanine Aminotransferase 6 U/L (0-31); Albumin Level 4.1 g/dL (3.5-5.0); Alkaline Phosphatase 100 U/L (39-117); Anion Gap 13 (12-20); Aspartate Amino Transferase 9 U/L (5-31); Bilirubin Total 0.4 mg/dL (0.0-1.0); Blood Urea Nitrogen 7 mg/dL (9-16); Calcium 9.8 mg/dL (8.4-10.2); Carbon Dioxide 24 mmol/L (22-29); Chloride 107 mmol/L (96-108); Creatinine Clr Calc Pharmacy 64.3; Estimated Glomerular Filt Rate > 60; Glucose Random 119 mg/dL (60-115); Potassium 4.4 mmol/L (3.3-5.1); Sodium 140 mmol/L (135-145); Total Protein 7.4 g/dL (6.5-8.0)
[2023-12-18 03:46] LABS: Troponin-I High Sensitivity 2.8 ng/L (<3.5-17.0)
[2023-12-18 03:51] VITALS: BP 177/94; PULSE 86; RESP 10; O2SAT 98
--- NOTE | 2023-12-18 04:20 | ED_ITS ---
HPI - Chest Pain General Chief Complaint: Chest Pain Stated Complaint: abdominal pain Time Seen by Provider: 12/18/23 04:20 History of Present Illness HPI narrative: The patient is a 68-year-old woman who comes to the emergency room for evaluation of 3 days of chest pain that she feels is under her left breast. She denies any trauma or injury. She denies any straining or other activity that might have produced a muscular injury. She has had no fever, sweats, chills. No cough. No pain or swelling in her legs. She does report that she had some nausea earlier in vomited once. The patient has a history of paroxysmal atrial fibrillation. She is on apixaban. Related Data Home Medications Medication Instructions Recorded Confirmed cyanocobalamin (vitamin B-12) 500 500 mcg PO DAILY 06/29/22 11/05/23 mcg tablet fluticasone propionate 50 50 spray intranasal DAILY 06/29/22 11/05/23 mcg/actuation nasal spray,suspension metformin 1,000 mg tablet 1,000 mg PO BID 06/29/22 11/05/23 metoprolol succinate 50 mg 50 mg PO DAILY 06/29/22 11/05/23 tablet,extended release 24 hr mirabegron 25 mg tablet,extended 25 mg PO DAILY 06/29/22 11/05/23 release 24 hr (Myrbetriq) apixaban 5 mg tablet (Eliquis) 5 mg PO BID 11/02/22 11/05/23 atorvastatin 20 mg tablet 20 mg PO DAILY 11/02/22 11/05/23 glipizide 10 mg tablet, extended 20 mg PO DAILY 11/02/22 11/05/23 release 24 hr albuterol sulfate 90 mcg/actuation 2 puff inhalation Q4H PRN Wheezing 12/21/22 11/05/23 aerosol inhaler Previous Rx's Medication Instructions Recorded albuterol sulfate 90 mcg/actuation 2 inh inhalation Q4-6H PRN 04/05/22 breath activated powder inhaler shortness of breath #1 ea salmeterol 50 mcg/dose blister 1 inh inhalation BID #60 ea 12/21/22 powder for inhalation (Serevent Diskus) incontinence pad, liner, disp #60 ea 04/22/23 (Prevail Panty Liner pads) skin care wipes #200 ea 04/22/23 empagliflozin 25 mg tablet 25 mg PO DAILY #90 tabs 09/10/23 (Jardiance) ferrous sulfate 325 mg (65 mg 325 mg PO DAILY #90 tabs 09/20/23 iron) tablet semaglutide 1 mg/dose (4 mg/3 mL) 1 mg (0.75 mL) subcut QWEEK #9 mL 10/21/23 subcutaneous pen injector bisacodyl 5 mg tablet,delayed 20 mg (4 x 5 mg) PO ONCE 1 day #4 11/01/23 release (Dulcolax (bisacodyl)) tabs lisinopril 2.5 mg tablet 2.5 mg PO DAILY #90 tabs 11/27/23 omeprazole 40 mg capsule,delayed 40 mg PO DAILY #90 caps 12/05/23 release docusate sodium 100 mg capsule 100 mg PO BID #60 caps 12/17/23 (Colace) sennosides 8.6 mg tablet (Senokot) 17.2 mg (2 x 8.6 mg) PO BEDTIME 12/17/23 #30 tabs Allergies Allergy/AdvReac Type Severity Reaction Status Date / Time sitagliptin [From Januvia] Allergy Intermediate diarrhea/vo Verified 12/18/23 02:48 miting Review of Systems 2 Review of Systems: Yes all other systems are reviewed and are negative [facility] Past Medical History Medical History Diabetes Murmur Anemia Paroxysmal atrial fibrillation Edema Surgical History History of carpal tunnel surgery of right wrist Hx of hand surgery Family History Family History Mother No problems noted. Father No problems noted. Social History Social History Housing: Apartment Patient Tobacco Use Status: Never used Tobacco Smoked in Last 30 Days: No e-Cigarette/Vaping Use: Never Used Second Hand Smoke Exposure: No Use of substances other than those prescribed or required for medical reasons: No Advance Directives: No Advance Directives Information Provided: Yes service: No Current occupational status: retired Cognitive needs: No Hearing needs: No Vision needs: No Physical Exam 2 Vital Signs: Vital Signs: Last Vital Signs Temp 98.3 F 12/18/23 05:52 Pulse 89 12/18/23 05:52 Resp 14 12/18/23 05:52 BP 159/82 H 12/18/23 05:52 Pulse Ox 97 12/18/23 05:52 O2 Del Method Room Air 12/18/23 05:52 BMI result Body Mass Index 26.9 Const: Other: The patient is awake, alert, pleasant, cooperative. She does not appear in obvious distress HEENT: Other: Face is symmetrical, mucous membranes moist Eyes: Other: Pupils are round equal, conjunctivae are clear, extraocular movements intact Neck: Other: No JVD Chest: Other: No clearly reproducible pain with palpation of the left lower chest wall. Resp: Effort & Inspection: normal respiratory effort Auscultation: clear to auscultation bilaterally Cardio: Rate: regular rate Rhythm: regular rhythm Heart sounds: S1 normal heart sound present and S2 normal heart sound present GI: Other: The abdomen is soft and nontender. Specifically no left upper quadrant tenderness. : General: Yes no CVA tenderness Back/Spine/Pelvis: Back: no CVA tenderness Skin: Other: Skin is dry and unremarkable Neuro: Other: The patient is awake, alert, pleasant, cooperative, grossly neurologically intact Extrem: Other: No peripheral edema, no calf swelling or tenderness, no asymmetry Medications Administered Discontinued Medications Generic Name Dose Route Start Last Admin Trade Name Freq PRN Reason Stop Dose Admin Acetaminophen 975 mg 12/18/23 04:39 12/18/23 04:44 Acetaminophen 325 Mg Tablet PO 12/18/23 04:40 975 mg ONCE ONE Administration Medical Decision Making Medical Decision Making [facility] Narrative: The patient presents with 3 days of left lower chest pain under the left breast that is worse with deep breath. She does not appear acutely ill or in distress. There is no increased work of breathing. EKG is unremarkable. Chest x-ray is negative. Her abdomen is benign. Labs show an unremarkable CBC. She has an undetectable D-dimer. She has normal C-reactive protein. She has a negative troponin after 3 days if symptoms. The patient's workup is essentially negative. Although she does not have obviously reproducible chest wall tenderness I think that a musculoskeletal cause of pain is probably the most likely. She does not seem to be showing signs of an [place], she does not have pulmonary embolism, there is no finding on chest x-ray to explain her symptoms. Her abdomen is benign. The patient is reassured. She will use acetaminophen as needed for pain. She should follow up with the regular doctor. If worse she should return to the emergency room. Lab Data 12/18/23 03:16 12/18/23 03:16 Labs: Lab Results 12/18/23 Range/Units 03:16 WBC 6.7 (4.8-10.8) X10*3/uL RBC 5.20 (4.20-5.50) X10*6/uL Hgb 12.4 (12.0-16.0) g/dl Hct 40.4 (37.0-47.0) % MCV 77.7 L (80.0-98.0) fL MCH 23.8 L (27.0-33.0) pg MCHC 30.7 L (31.0-35.0) g/dl RDW 19.4 H (11.0-16.0) % Plt Count 298 (160-400) X10*3/uL MPV 9.2 L (9.4-12.3) fL Immature Gran % (Auto) 0.3 (0.0-0.4) % Neut % (Auto) 54.4 (45-73) % Lymph % (Auto) 34.3 (20-40) % Prentiss % (Auto) 9.0 (2-11) % Eos % (Auto) 1.5 (0-4) % Baso % (Auto) 0.5 (0-2) % Lymph # (Auto) 2.3 (1.2-4.9) X10*3/uL Prentiss # (Auto) 0.6 (0.1-1.2) X10*3/uL Eos # (Auto) 0.1 (0.0-0.4) X10*3/uL Baso # (Auto) 0.0 (0.0-0.2) X10*3/uL Abs Immat Gran (auto) 0.02 (0.00-0.03) X10*3/uL Absolute Neuts (auto) 3.6 (2.0-8.3) x10*3/uL Absolute Nucleated RBC 0.000 (0.0-0.012) X10*3/uL Nucleated RBC % (auto) 0.0 (0.0-0.2) /100WBC PT 15.2 H (11.1-13.3) SEC INR 1.3 H (0.9-1.1) D-Dimer High Sensitivty < 150 NG/ML Sodium 140 (135-145) mmol/L Potassium 4.4 (3.3-5.1) mmol/L Chloride 107 (96-108) mmol/L Carbon Dioxide 24 (22-29) mmol/L Anion Gap 13 (12-20) BUN 7 L (9-16) mg/dL Creatinine 0.76 (0.5-1.4) mg/dL Estim Creat Clear Calc 64.3 Estimated GFR > 60 Random Glucose 119 H (60-115) mg/dL Calcium 9.8 (8.4-10.2) mg/dL Total Bilirubin 0.4 (0.0-1.0) mg/dL AST 9 (5-31) U/L ALT 6 (0-31) U/L Alkaline Phosphatase 100 (39-117) U/L Troponin I High Sens 2.8 (<3.5-17.0) ng/L C-Reactive Protein 0.38 (< or = 0.50) mg/dL Total Protein 7.4 (6.5-8.0) g/dL Albumin 4.1 (3.5-5.0) g/dL Independent Interpretation I performed an independent interpretation of an: EKG Interpretation: EKG at 02:54 shows sinus rhythm with occasional premature ventricular complexes at 100 beats per minute. No definite acute ischemic changes. No old EKGs available for comparison. Discharge Plan Discharge Clinical Impression: Left-sided chest pain Patient Disposition: Home, Self-Care Additional Instructions: Your testing in the emergency room today is very reassuring. There is no sign of a heart attack. There is no sign of a blood clot. There is no sign of any significant infection. I think it would be reasonable to use acetaminophen (Tylenol) as needed for pain. I suspect this is probably a muscle pain in your left chest wall. My hope is that it will start to feel better over the next couple of days. Please contact your regular doctor's office on Wednesday for a recheck if not improving. If at any point you feel your symptoms are significantly worse please return to the emergency room. Prescriptions: No Action (DME) Prevail Panty Liner Pad See Rx Instructions .Route Qty: 60 11RF Rx Instructions: As directed (DME) skin care wipes See Rx Instructions .Route .MEDSUPPLY Qty: 200 11RF Rx Instructions: As directed Jardiance 25 mg tablet 25 mg PO DAILY Qty: 90 1RF bisacodyl [Dulcolax (bisacodyl)] 5 mg tablet,delayed release (DR/EC) 20 mg PO ONCE 1 Days Qty: 4 0RF Rx Instructions: take at noon the day before colonoscopy lisinopril 2.5 mg tablet 2.5 mg PO DAILY Qty: 90 1RF omeprazole 40 mg capsule,delayed release(DR/EC) 40 mg PO DAILY Qty: 90 0RF albuterol sulfate 90 mcg/actuation aerosol powdr breath activated 2 inh inhalation Q4-6H PRN (Reason: shortness of breath) Qty: 1 0RF ferrous sulfate 325 mg (65 mg iron) Tablet 325 mg PO DAILY Qty: 90 4RF metformin 1,000 mg tablet 1,000 mg PO BID metoprolol succinate 50 mg tablet extended release 24 hr 50 mg PO DAILY cyanocobalamin (vitamin B-12) 500 mcg tablet 500 mcg PO DAILY Myrbetriq 25 mg tablet extended release 24 hr 25 mg PO DAILY fluticasone propionate 50 mcg/actuation spray,suspension 50 spray intranasal DAILY Eliquis 5 mg tablet 5 mg PO BID glipizide 10 mg tablet extended release 24hr 20 mg PO DAILY atorvastatin 20 mg tablet 20 mg PO DAILY albuterol sulfate 90 mcg/actuation HFA aerosol inhaler 2 puff inhalation Q4H PRN (Reason: Wheezing) Serevent Diskus 50 mcg/dose blister with device 1 inh inhalation BID Qty: 60 0RF semaglutide 1 mg/dose (4 mg/3 mL) pen injector 1 mg subcut QWEEK Qty: 9 2RF sennosides [Senokot] 8.6 mg tablet 17.2 mg PO BEDTIME Qty: 30 0RF docusate sodium [Colace] 100 mg capsule 100 mg PO BID Qty: 60 0RF Referrals: Chris Singh, [employer] [Primary Care Provider] - (Left-sided chest pain) Interventions: ED Discharge Assessment Last Done: 12/18/23 05:53 Discharge Date/Time: 12/18/23 05:54
[2023-12-18 04:27] VITALS: BP 167/81; PULSE 98; RESP 15; O2SAT 98
[2023-12-18] MEDS: Acetaminophen 325 MG TABLET 975 MG PO (04:44)
[2023-12-18 04:47] LABS: MANUAL DIFF FLAG NO
[2023-12-18 04:49] LABS: Basophils Percent Auto 0.5 % (0-2); Eosinophils Absolute Auto 0.1 X10*3/uL (0.0-0.4); Eosinophils Percent Auto 1.5 % (0-4); Imm Gran Abs Auto 0.02 X10*3/uL (0.00-0.03); Imm Gran Pct Auto 0.3 % (0.0-0.4); Lymphocytes Absolute Auto 2.3 X10*3/uL (1.2-4.9); Lymphocytes Percent Auto 34.3 % (20-40); Monocytes Absolute Auto 0.6 X10*3/uL (0.1-1.2); Neutrophils Absolute Auto 3.6 x10*3/uL (2.0-8.3); Neutrophils Percent Auto 54.4 % (45-73)
[2023-12-18 04:57] LABS: D Dimer High Sensitivity < 150 NG/ML
[2023-12-18 04:58] LABS: C Reactive Protein 0.38 mg/dL (< or = 0.50)
[2023-12-18 05:52] VITALS: BP 159/82; PULSE 89; RESP 14; TEMP 36.8; O2SAT 97
== END 2023-12-18 05:54 | disposition home or self-care (01) ==
PROVIDERS: Emergency Provider Emergency Medicine; PCP Nurse Practitioner Family
DX: R07.9 Chest pain, unspecified (principal); I48.0 Paroxysmal atrial fibrillation; E11.9 Type 2 diabetes mellitus without complications; Z79.899 Other long term (current) drug therapy
CPT/HCPCS: 36415; 71046; 80053; 84484; 85025; 85027; 85379; 85610; 86140; 93005; 99283; 99285

== ENCOUNTER → 2023-12-18 02:54 | Outpatient (BNV) | payer OTHER, SELFPAY | PROVIDERS: Emergency Provider Emergency Medicine; PCP Nurse Practitioner Family; Visit Provider Internal Medicine Cardiovascular Disease | DX: R07.9 Chest pain, unspecified (principal) | CPT/HCPCS: 93010 ==

== ENCOUNTER 2023-12-20 14:31 | Outpatient (AMB) | payer OTHER, SELFPAY ==
--- NOTE | 2023-12-20 14:34 | MHC.OFFVIS ---
Intake Vital Signs 12/20/23 14:35 Height 5 ft 2 in Weight 144 lb 2.917 oz BMI 26.4 BP 158/74 H Blood Pressure Location Lt brachial Position Sitting Pulse 96 Intake Visit Reasons: S/p colon Intake Note: Clotilde returns in follow up s/p colonoscopy on 11/09/23. CC: Patient c/o constipation and sometimes she is 5-6 days without having a BM. She states after having a BM she continues having some drips for a few days. She also reports having pain under her left breast. She went to the ER on 12/17 d/t pain and vomiting x1 but cardiac workup came back negative per PT. 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 Patient denies any acid reflux, dyspepsia, dysphagia or odynophagia. Discussed with patient avoiding dietary triggers and late night snacking. Staying upright for minimal 3 hours after meals discussed with patient. Constipation RN called [facility]. Script received and will be ready for patient in 1 hour. Patient will call the office if he will have no affect after taking Senokot. Patient will return in 6 months, sooner on as needed basis. Patient is agreeable to this plan and verbalizes understanding of instructions. He was given the opportunity to ask questions and all questions answered. ? Thank you for allowing me to participate in his care Plan Medications Refilled sennosides (Natural Senna Laxative) 17.2 mg (2 x 8.6 mg) PO BEDTIME 60 tabs 3RF constipation K59.00 COLONOSCOPY Findings: Terminal Ileum-normal Cecum:normal Ascending Colon: normal Transverse Colon -normal Descending Colon:normal Sigmoid Colon: normal Rectum: Retroflexion with small inflammed internal hemorrhoids, grade I Anorectum - normal Colon preparation: [place] Bowel Preparation Scale Right colon; 1-2 Transverse colon: 2 Left colon; 1-2 (0 = Unprepared colon segment with mucosa not seen due to solid stool that cannot be cleared. 1 = Portion of mucosa of the colon segment seen, but other areas of the colon segment not well seen due to staining, residual stool and/or opaque liquid. 2 = Minor amount of residual staining, small fragments of stool and/or opaque liquid, but mucosa of colon segment seen well. 3 = Entire mucosa of colon segment seen well with no residual staining, small fragments of stool or opaque liquid) Impression and Post Procedure Diagnosis: internal hemorrhoids tortuous colon Plan: High fiber diet leaflet Avoid straining at stool, epsom salts and sitz bath, anusol supps or cream Repeat Colonoscopy in 1 year or earlier if clinically indicated due to fair prep in some area TODAY'S VISIT: Patient is here today for follow-up and to discuss colonoscopy results. Patient denies any ill effects from the prep, anesthesia or procedure itself. Patient had suboptimal prep, no polyps found, however due to inability to visualize the whole colon patient will need to return for colonoscopy again in 1 year. Patient continues to be constipated despite taking Dulcolax and senna. Patient was seen couple days ago in the ER,. Patient woke up in the middle of the night vomiting and with left upper quadrant discomfort. Patient reports that the pain radiated in to middle of her chest. Patient had cardiac workup done and rule out cardiac related issues. Rule out PE. Today patient denies any epigastric discomfort, left upper quadrant discomfort. Patient reports that no BM for several days sometimes 3-5 days. Patient had a small BM this morning. Patient denies any melena, hematochezia, unintentional weight loss or ribbon like stools. Patient denies any dyspepsia, dysphagia or odynophagia. COUNTS INCLUDE 234 BEDS AT THE [facility] Medical History Diabetes Murmur Anemia Paroxysmal atrial fibrillation Edema Surgical History H/O colonoscopy History of carpal tunnel surgery of right wrist Hx of hand surgery Family History Mother No problems noted. Father No problems noted. Social History Housing: Apartment Patient Tobacco Use Status: Never used Tobacco e-Cigarette/Vaping Use: Never Used Second Hand Smoke Exposure: No service: No Current occupational status: retired Cognitive needs: No Hearing needs: No Vision needs: No Review of Systems Const Denies weight gain and Denies weight loss ENT Reports no additional complaints, Denies dysphagia and Denies odynophagia Card Reports no additional complaints Resp Reports no additional complaints GI Reports abdominal pain (LUQ), Denies belching, Denies melena, Denies bloating, Reports constipation, Denies dysphagia, Denies excessive flatus, Denies dyspepsia, Denies heartburn, Denies diarrhea, Denies loose stools, Denies nausea, Denies odynophagia and Denies vomiting Reports no additional complaints Musc Reports no additional complaints Neuro Reports no additional complaints Psych Reports no additional complaints Endo Reports no additional complaints Physical Exam Vital Signs: BMI result Body Mass Index 26.4 Const General: healthy appearing, no acute distress and well developed Nutritional Appearance: well nourished Orientation/consciousness: patient oriented x3 Resp Effort & Inspection: normal respiratory effort, able to speak in complete sentences, no tracheal deviation and symmetric chest movement Auscultation: clear to auscultation bilaterally Cardio Rate: regular rate GI Inspection: Yes normal to inspection and No distended Palpation (GI): Soft to palpation, not firm, nontender and No hepatosplenomegaly present Auscultation: normal bowel sounds General: Yes no CVA tenderness Back/Spine/Pelvis Back: no CVA tenderness Skin General skin exam: elasticity normal, turgor normal and dry skin Neuro General: patient oriented x3 Psych Appearance: grossly normal Mental Status: mental status grossly normal Assessment & Plan Assessment & Plan (1) Positive colorectal cancer screening using Cologuard test: Code(s): R19.5 - Other fecal abnormalities (2) Chronic idiopathic constipation: Code(s): K59.04 - Chronic idiopathic constipation (3) Left upper quadrant abdominal pain: Code(s): R10.12 - Left upper quadrant pain (4) Status post colonoscopy: Code(s): Z98.890 - Other specified postprocedural states Plan Patient will start taking Trulance. Patient can take Dulcolax in the evening. Encouraged to increase fluid intake and activity to promote better bowel motility. Colonoscopy will be repeated in 1 year, sooner if clinically necessary. I will see patient in 5 weeks, sooner on as needed basis. Patient is agreeable to this plan and verbalizes understanding of instructions. She was given the opportunity to ask questions and all questions answered. Thank you for allowing me to participate in her care Medications: New plecanatide (Trulance) 3 mg PO DAILY 30 tabs 3RF K59.09 - Other constipation Discontinued sennosides (Senokot) Discontinued Reason: Doctor's Order 17.2 mg (2 x 8.6 mg) PO BEDTIME 30 tabs 0RF K59.01 - Slow transit constipation Coding Level of Care Code Est Pt Level 3 (41888) Diagnoses Positive colorectal cancer screening using Cologuard test R19.5 Chronic idiopathic constipation K59.04 Left upper quadrant abdominal pain R10.12 Status post colonoscopy Z98.890 Time Spent (min) 30 Comment 20 minutes spent with patient and additional 10 minutes spent reviewing her records
[2023-12-20 14:35] VITALS: BP 158/74; PULSE 96; BMI 26.4
== END 2023-12-20 15:02 | disposition home or self-care (01) ==
PROVIDERS: PCP Nurse Practitioner Family; Visit Provider Nurse Practitioner Family
DX: R19.5 Other fecal abnormalities (principal); K59.04 Chronic idiopathic constipation; R10.12 Left upper quadrant pain; Z98.890 Other specified postprocedural states
CPT/HCPCS: 99213

== ENCOUNTER → 2023-12-20 14:31 | Outpatient (BNVA) | payer OTHER, SELFPAY | PROVIDERS: PCP Nurse Practitioner Family; Visit Provider Nurse Practitioner Family | DX: K59.04 Chronic idiopathic constipation (principal); R19.5 Other fecal abnormalities; R10.12 Left upper quadrant pain; Z98.890 Other specified postprocedural states | CPT/HCPCS: 99212 ==

== ENCOUNTER 2024-01-17 14:07 | Outpatient (AMB) | payer OTHER, SELFPAY ==
[2024-01-17 14:21] VITALS: BP 114/60; PULSE 93; TEMP 36.8; O2SAT 97; BMI 27.2
--- NOTE | 2024-01-17 14:21 | MHC.OFFWIV ---
Intake Vital Signs 01/17/24 14:21 Height 5 ft 2 in Weight 149 lb BMI 27.2 BP 114/60 Blood Pressure Location Rt brachial Position Sitting Pulse 93 Pulse Source Pulse Oximeter Temp 98.2 F Temp Source Oral Pulse Oximetry (%) 97 Oxygen Delivery Method Room Air Intake Visit Reasons: EP asthma flare up Intake Note: Pt presents to the office today for c/o asthma flare up. Pt states it started about 2 weeks ago and has been getting worse. She states it is hard to catch her breath. Patient Tobacco Use Status: Never used Tobacco Allergies sitagliptin [From Januvia] Allergy (Intermediate, Verified 01/17/24 14:25) diarrhea/vomiting HPI HPI Comments History of Present Illness Details Patient presents to the walk-in today for sick visit Reports 2 weeks of dry cough She also complains of wheezing at bedtime Has been using her albuterol inhaler 4 times daily as prescribed Cough is nonproductive Denies fevers, chills, congestion, syncope, dizziness, weakness, nausea, vomiting, diarrhea, shortness of breath or headache PFSH Medical History Diabetes Murmur Anemia Paroxysmal atrial fibrillation Edema Surgical History H/O colonoscopy History of carpal tunnel surgery of right wrist Hx of hand surgery Family History Mother No problems noted. Father No problems noted. Social History Housing: Apartment Patient Tobacco Use Status: Never used Tobacco e-Cigarette/Vaping Use: Never Used Second Hand Smoke Exposure: No service: No Current occupational status: retired Cognitive needs: No Hearing needs: No Vision needs: No Review of Systems Const All systems reviewed & are unremarkable except as noted in HPI and below Physical Exam Vital Signs: Last Vital Signs Temp 98.2 F 01/17/24 14:21 Pulse 93 01/17/24 14:21 BP 114/60 01/17/24 14:21 Pulse Ox 97 01/17/24 14:21 Oxygen Delivery Method Room Air 01/17/24 14:21 BMI result Body Mass Index 27.2 General: awake, alert, oriented. Answers questions appropriately. Fully engaged in examination. Skin: warm, dry, intact HEENT: TMs intact bilaterally, no redness. Posterior pharynx without erythema or exudate. Sclera without icterus or injection. Cardiac: External chest normal in appearance. Respiratory: + dry cough. Lung sounds clear to auscultation bilaterally Abdomen: without gross distension. Neurological: Oriented to person, place, time and situation. Thought process intact. Psychiatric: Appropriate mood and affect. Good judgment and insight. Assessment & Plan Assessment & Plan (1) Cough: Code(s): R05.9 - Cough, unspecified Plan Benzonatate 100 mg p.o. twice daily as needed Prednisone 40 mg daily x5 days Continue with albuterol inhaler as prescribed, patient declines refill today Follow-up with PCP as planned, may benefit from referral to pulmonology Follow up at walk-in clinic for any new or worsening symptoms Medications: New benzonatate 100 mg PO BID PRN 20 caps 0RF cough prednisone 40 mg (2 x 20 mg) PO DAILY 5 days 10 tabs 0RF Coding Level of Care Code Est Pt Level 3 (48799) Diagnoses Cough R05.9
== END 2024-01-17 15:54 | disposition home or self-care (01) ==
PROVIDERS: PCP Nurse Practitioner Family; Visit Provider Registered Nurse Emergency
DX: R05.9 Cough, unspecified (principal)
CPT/HCPCS: 99213

== ENCOUNTER 2024-01-26 14:38 | Outpatient (AMB) | payer OTHER, SELFPAY ==
--- NOTE | 2024-01-26 15:00 | MHC.OFFVIS ---
Intake Vital Signs 01/26/24 15:01 Height 5 ft 2 in Weight 147 lb 11.355 oz BMI 27.0 BP 136/66 Blood Pressure Location Lt brachial Position Sitting Pulse 92 Intake Visit Reasons: 5 week follow up Intake Note: Clotilde presents in the office as a 5 week follow up. CC: She is just having issues with her stomach. She does not have a BM every day it still is every 2 to 3 days. Allergies sitagliptin [From Octuv] Allergy (Intermediate, Verified 01/26/24 15:00) diarrhea/vomiting HPI 5 week follow up HPI Details LAST VISIT Positive colorectal cancer screening using Cologuard test Chronic idiopathic constipation Left upper quadrant abdominal pain Status post colonoscopy Plan Patient will start taking Trulance. Patient can take Dulcolax in the evening. Encouraged to increase fluid intake and activity to promote better bowel motility. Colonoscopy will be repeated in 1 year, sooner if clinically necessary. I will see patient in 5 weeks, sooner on as needed basis. Patient is agreeable to this plan and verbalizes understanding of instructions. She was given the opportunity to ask questions and all questions answered. ? Thank you for allowing me to participate in her care Medications New plecanatide (Trulance) 3 mg PO DAILY 30 tabs 3RF K59.09 Discontinued sennosides (Senokot) Discontinued Reason: Doctor's Order 17.2 mg (2 x 8.6 mg) PO BEDTIME 30 tabs 0RF K59.01 TODAY'S VISIT: Patient is here today for follow-up. Patient reports that she never received Trulance. She is taking Senokot and Colace and reports that she continues to have constipation with abdominal pain and bloating. Patient is drinking water is fairly active. Reports constipation for very long time. Patient reports occasional nausea without vomiting. Denies melena, hematochezia, unintentional weight loss or ribbon like stools. Patient reports occasional dyspepsia without dysphagia or odynophagia. Patient reports that her symptoms are worse when she if constipated. [facility] Medical History Diabetes Murmur Anemia Paroxysmal atrial fibrillation Edema Surgical History H/O colonoscopy History of carpal tunnel surgery of right wrist Hx of hand surgery Family History Mother No problems noted. Father No problems noted. Social History Housing: Apartment Patient Tobacco Use Status: Never used Tobacco e-Cigarette/Vaping Use: Never Used Second Hand Smoke Exposure: No service: No Current occupational status: retired Cognitive needs: No Hearing needs: No Vision needs: No Review of Systems Const Denies weight gain and Denies weight loss ENT Reports no additional complaints, Denies dysphagia and Denies odynophagia Card Reports no additional complaints Resp Reports no additional complaints GI Reports abdominal pain, Denies belching, Denies melena, Reports bloating, Reports constipation, Denies dysphagia, Denies excessive flatus, Denies dyspepsia, Denies heartburn, Denies diarrhea, Denies loose stools, Denies nausea, Denies odynophagia and Denies vomiting Musc Reports no additional complaints Neuro Reports no additional complaints Psych Reports no additional complaints Endo Reports no additional complaints Physical Exam Vital Signs: Last Vital Signs Pulse 92 01/26/24 15:01 BP 136/66 01/26/24 15:01 BMI result Body Mass Index 27.0 Const General: healthy appearing, no acute distress and well developed Nutritional Appearance: well nourished Orientation/consciousness: patient oriented x3 Resp Effort & Inspection: normal respiratory effort, able to speak in complete sentences, no tracheal deviation and symmetric chest movement Auscultation: clear to auscultation bilaterally Cardio Rate: regular rate GI Inspection: Yes normal to inspection and No distended Palpation (GI): Soft to palpation, not firm, nontender and No hepatosplenomegaly present Auscultation: normal bowel sounds General: Yes no CVA tenderness Back/Spine/Pelvis Back: no CVA tenderness Skin General skin exam: elasticity normal, turgor normal and dry skin Neuro General: patient oriented x3 Psych Appearance: grossly normal Mental Status: mental status grossly normal Assessment & Plan Assessment & Plan (1) Chronic idiopathic constipation: Code(s): K59.04 - Chronic idiopathic constipation (2) Left upper quadrant abdominal pain: Code(s): R10.12 - Left upper quadrant pain (3) Status post colonoscopy: Code(s): Z98.890 - Other specified postprocedural states Plan RN to check on the PA for Trulance. Discussed with patient avoiding dietary triggers. Postprandial abdominal bloating patient was encouraged to follow FODMAP diet. List of food recommended as well as list of food to avoid given to patient. Patient will call our office if she will continue to have trouble moving her bowels or develop any other GI concerning symptoms. Patient is going to follow-up in our office in 5 weeks, sooner on as needed basis. Patient is agreeable to this plan and verbalizes understanding of instructions. She was given the opportunity to ask questions and all questions answered. Thank you for allowing me to participate in her care Medications: Refilled plecanatide (Trulance) 3 mg PO DAILY 30 tabs 3RF K59.09 - Other constipation Coding Level of Care Code Est Pt Level 3 (64418) Diagnoses Chronic idiopathic constipation K59.04 Left upper quadrant abdominal pain R10.12 Status post colonoscopy Z98.890 Time Spent (min) 25 Comment 15 minutes spent with patient and additional 10 minutes spent reviewing her records
[2024-01-26 15:01] VITALS: BP 136/66; PULSE 92; BMI 27.0
== END 2024-01-26 15:19 | disposition home or self-care (01) ==
PROVIDERS: PCP Nurse Practitioner Family; Visit Provider Nurse Practitioner Family
DX: K59.04 Chronic idiopathic constipation (principal); R10.12 Left upper quadrant pain; Z98.890 Other specified postprocedural states
CPT/HCPCS: 99213

== ENCOUNTER → 2024-01-26 14:38 | Outpatient (BNVA) | payer OTHER, SELFPAY | PROVIDERS: PCP Nurse Practitioner Family; Visit Provider Nurse Practitioner Family | DX: K59.04 Chronic idiopathic constipation (principal); R10.12 Left upper quadrant pain; Z98.890 Other specified postprocedural states | CPT/HCPCS: 99212 ==

== ENCOUNTER 2024-02-15 11:36 | Outpatient (AMB) | payer MEDICARE, SELFPAY ==
--- NOTE | 2024-02-15 11:39 | A.OFFPC_ITS ---
Vital Signs 02/15/24 11:43 Height 5 ft 2 in Weight 148 lb 2 oz BMI 27.1 BP 124/70 Blood Pressure Location Rt brachial Position Sitting Pulse 97 Pulse Source Pulse Oximeter Pulse Oximetry (%) 97 Oxygen Delivery Method Room Air Intake Visit Reasons: Annual PE Intake Note: Patient here for physical exam. Mammo: 2022 due this year BD: 2022 Allergies sitagliptin [From Octuvia] Allergy (Intermediate, Verified 02/15/24 13:03) diarrhea/vomiting Medication List - Last Reconciled 02/15/24 by hCris Singh, [facility]- albuterol sulfate 90 mcg/actuation 2 puffs inhalation Q4H PRN apixaban (Eliquis) 5 mg PO BID atorvastatin 20 mg PO DAILY cyanocobalamin (vitamin B-12) 500 mcg PO DAILY docusate sodium (Colace) 100 mg PO BID empagliflozin (Jardiance) 25 mg PO DAILY ferrous sulfate 325 mg PO DAILY fluticasone propionate 50 mcg/actuation 50 sprays intranasal DAILY glipizide ER 20 mg PO DAILY incontinence pad, liner, disp (Prevail Panty Liner pads) As directed lisinopril 2.5 mg PO DAILY metformin 1,000 mg PO BID metoprolol succinate ER 50 mg PO DAILY mirabegron ER (Myrbetriq) 25 mg PO DAILY omeprazole 40 mg PO DAILY plecanatide (Trulance) 3 mg PO DAILY salmeterol (Serevent Diskus) 1 inh inhalation BID semaglutide 2 mg (1.5 mL) subcut QWEEK sennosides (senna) 17.2 mg PO BEDTIME [skin care wipes As directed] Tobacco use date assessed: 10/21/23 Fall risk assessment: No Falls in past year Last assessed Fall Risk: 02/15/24 Dental Screening Dental Screen Date: 10/21/23 HPI Annual PE HPI Details Pt is here for a PE. Will order labs. Colon screen is up to date. Mammo is up to date. Bone density is up to date. Pt is a diabetic, on an BERNICE and a statin. A1C in office today is 8.7. Due for microalbumin. Denies polyuria, polydipsia, and neuropathy. Pt denies any signs and symptoms of hypoglycemia and does know how to correct it. Eye exam is up to date. Will increase ozempic from 1mg to 2mg. Hx of B12 deficiency, will order labs. [facility] Medical History Diabetes Murmur Anemia Paroxysmal atrial fibrillation Edema Surgical History H/O colonoscopy History of carpal tunnel surgery of right wrist Hx of hand surgery Family History Mother No problems noted. Father No problems noted. Social History Housing: Apartment Patient Tobacco Use Status: Never used Tobacco e-Cigarette/Vaping Use: Never Used Second Hand Smoke Exposure: No service: No Current occupational status: retired Cognitive needs: No Hearing needs: No Vision needs: No Questionnaire Thrive Questionnaire Date Thrive assessed: 10/21/23 TOMEKA-7 AMB Questionnaire TOMEKA-7 Date TOMEKA - 7 assessed: 10/21/23 Source: Developed by Drs. Gonsalo Gomez, Jerilyn Doe, Santiago Wakefield and colleagues, with an educational yung from [employer]. Review of Systems Const Denies chills and Denies fever(s) Eyes Denies blurry vision ENT Denies vertigo, Denies dizziness and Denies sore throat Card Denies chest pain at rest, Denies chest pain with activity, Denies diaphoresis, Denies dyspnea and Denies dyspnea on exertion Resp Denies cough, Denies dyspnea, Denies dyspnea on exertion and Denies wheezing GI Denies abdominal pain, Denies melena, Denies hematochezia, Denies constipation, Denies diarrhea and Denies loose stools Denies hematuria Musc Denies numbness and Denies tingling Skin/Breast Denies lesions Neuro Denies vertigo, Denies dizziness, Denies numbness and Denies tingling Psych Denies anxiety, Denies depression, Denies homicidal ideation, Denies suicidal ideation and Denies other (substance abuse) Aller/Immun Denies wheezing Physical exam (Primary Care) Vital Signs: Last Vital Signs Pulse 97 02/15/24 11:43 BP 124/70 02/15/24 11:43 Pulse Ox 97 02/15/24 11:43 Oxygen Delivery Method Room Air 02/15/24 11:43 BMI result Body Mass Index 27.1 Tobacco/Smoking Status: Tobacco use Status Tobacco use date assessed 10/21/23 02/15/24 11:40 Patient Tobacco Use Status Never used Tobacco 02/15/24 11:40 e-Cigarette/Vaping Use Never Used 02/15/24 11:40 Thrive Assessment: Date of Thrive Assessment Date Thrive assessed 10/21/23 02/15/24 11:40 Const General: cooperative Nutritional Appearance: well nourished Orientation/consciousness: patient oriented x3 HENMT Head: Yes normal to inspection, Yes normocephalic and Yes atraumatic Ears: TM's normal bilaterally Eyes General: appearance normal, both eyes and all related structures Alignment and Position: alignment normal and position normal Neck Neck: Yes normal visual inspection and Yes no lymphadenopathy Thyroid: Thyroid normal Resp Effort & Inspection: normal respiratory effort Auscultation: clear to auscultation bilaterally Cardio Rate: regular rate Rhythm: regular rhythm Heart sounds: S1 normal heart sound present, S2 normal heart sound present and no murmurs GI Palpation (GI): Soft to palpation and nontender Auscultation: normal bowel sounds Skin Rashes: no rashes Neuro General: patient oriented x3, moves all extremities, no focal motor deficits and deep tendon reflexes 2+ bilaterally Romberg Test: Negative Extrem Other: bilat feet: + sensation with use of monofilament, feet intact Psych Appearance: grossly normal Mental Status: mental status grossly normal Speech and movement: Normal speech and movement present Affect: normal affect Attitude: cooperative Thought process: Normal thought process present Thought content: Normal thought content present Insight: Good insight present (Psych) Judgement: Good judgement present (Psych) Results AMB Hemoglobin A1c AMB Hemoglobin A1c 8.7 % Last Edit by MADAI Encarnacion on 02/15/24 12 :00 Assessment and Plan Assessment & Plan (1) Diabetes mellitus: Code(s): E11.9 - Type 2 diabetes mellitus without complications Plan: Labs ordered, increasing ozempic from 1mg to 2mg. will consider adding insulin in the future (2) B12 deficiency: Code(s): E53.8 - Deficiency of other specified B group vitamins Plan: Labs ordered Plan The patient agreed to the use of a director medical affairs for this encounter. Scribed for Chris Singh, [facility]- by Heather Colon director medical affairs, on 02/15/2024 at 12:00 EST. Orders: Orders Microalbumin, Random (w Creat) Today E11.9 - Type 2 diabetes mellitus without complications UA CC w/rflx Micro + Cult Today E11.9 - Type 2 diabetes mellitus without complications Lipid Panel Today E11.9 - Type 2 diabetes mellitus without complications Vitamin B12 and Folate Today E53.8 - Deficiency of other specified B group vitamins Complete Blood Count Auto Diff Today E11.9 - Type 2 diabetes mellitus without complications Comprehensive [place]. Panel Fast Today E11.9 - Type 2 diabetes mellitus without complications TSH reflex Free T4 Today E11.9 - Type 2 diabetes mellitus without complications AMB Hemoglobin A1c Today Z13.9 - Encounter for screening, unspecified Medications: Changed From semaglutide 1 mg (0.75 mL) subcut QWEEK 9 mL 2RF E11.9 - Type 2 diabetes mellitus without complications To semaglutide 2 mg (1.5 mL) subcut QWEEK 9 mL 2RF E11.9 - Type 2 diabetes mellitus without complications Coding Level of Care Code Est Pt Prev Care >65y(53679) Diagnoses Diabetes mellitus E11.9 B12 deficiency E53.8
[2024-02-15 11:43] VITALS: BP 124/70; PULSE 97; O2SAT 97; BMI 27.1
== END 2024-02-15 12:08 | disposition home or self-care (01) ==
PROVIDERS: Visit Provider Nurse Practitioner Family
DX: Z00.00 Encounter for general adult medical examination without abnormal findings (principal); E11.9 Type 2 diabetes mellitus without complications; E53.8 Deficiency of other specified B group vitamins
CPT/HCPCS: 83036; 99397

== ENCOUNTER 2024-03-03 13:38 | Outpatient (AMB) | payer MEDICARE, SELFPAY ==
--- NOTE | 2024-03-03 13:43 | MHC.OFFVIS ---
Vital Signs 03/03/24 13:45 Height 5 ft 2 in Weight 147 lb 11.355 oz BMI 27.0 BP 126/59 L Blood Pressure Location Lt brachial Position Sitting Pulse 96 Intake Visit Reasons: 5 wk follow up Intake Note: Clotilde presents in the office as a 5 week follow up. CC: No concerns at this time. Allergies sitagliptin [From Januvia] Allergy (Intermediate, Verified 03/03/24 13:45) diarrhea/vomiting HPI HPI 5 wk follow up: Details: LAST VISIT: Chronic idiopathic constipation Left upper quadrant abdominal pain Status post colonoscopy Plan RN to check on the PA for Trulance. Discussed with patient avoiding dietary triggers. Postprandial abdominal bloating patient was encouraged to follow FODMAP diet. List of food recommended as well as list of food to avoid given to patient. Patient will call our office if she will continue to have trouble moving her bowels or develop any other GI concerning symptoms. Patient is going to follow-up in our office in 5 weeks, sooner on as needed basis. Patient is agreeable to this plan and verbalizes understanding of instructions. She was given the opportunity to ask questions and all questions answered. ? Thank you for allowing me to participate in her care Medications Refilled plecanatide (Trulance) 3 mg PO DAILY 30 tabs 3RF K59.09 TODAY'S VISIT: Patient is here today for follow-up. Patient states that she is doing better now that she is taking Trulance more often. Patient still does not take Trulance every single day as she is out and about patient states that she takes Trulance in the evening and usually in the morning the next day she will before. Patient denies any abdominal pain. Denies any melena, hematochezia, unintentional weight loss or ribbon like stools. Patient reports to be feeling. Denies any GI concerning symptoms today. [facility] Medical History Diabetes Murmur Anemia Paroxysmal atrial fibrillation Edema Surgical History H/O colonoscopy History of carpal tunnel surgery of right wrist Hx of hand surgery Family History Mother No problems noted. Father No problems noted. Social History Housing: Apartment Patient Tobacco Use Status: Never used Tobacco e-Cigarette/Vaping Use: Never Used Second Hand Smoke Exposure: No service: No Current occupational status: retired Cognitive needs: No Hearing needs: No Vision needs: No Review of Systems Const Denies weight gain and Denies weight loss ENT Reports no additional complaints, Denies dysphagia and Denies odynophagia Card Reports no additional complaints Resp Reports no additional complaints GI Denies abdominal pain, Denies belching, Denies melena, Denies bloating, Denies constipation, Denies dysphagia, Denies excessive flatus, Denies dyspepsia, Denies heartburn, Denies diarrhea, Denies loose stools, Denies nausea, Denies odynophagia and Denies vomiting Reports no additional complaints Musc Reports no additional complaints Neuro Reports no additional complaints Psych Reports no additional complaints Endo Reports no additional complaints Physical Exam Vital Signs: Last Vital Signs Pulse 96 03/03/24 13:45 BP 126/59 L 03/03/24 13:45 BMI result Body Mass Index 27.0 Const General: healthy appearing, no acute distress and well developed Nutritional Appearance: well nourished Orientation/consciousness: patient oriented x3 Resp Effort & Inspection: normal respiratory effort, able to speak in complete sentences, no tracheal deviation and symmetric chest movement Auscultation: clear to auscultation bilaterally Cardio Rate: regular rate GI Inspection: Yes normal to inspection and No distended Palpation (GI): Soft to palpation, not firm, nontender and No hepatosplenomegaly present Auscultation: normal bowel sounds General: Yes no CVA tenderness Back/Spine/Pelvis Back: no CVA tenderness Skin General skin exam: elasticity normal, turgor normal and dry skin Neuro General: patient oriented x3 Psych Appearance: grossly normal Mental Status: mental status grossly normal Assessment & Plan Assessment & Plan (1) Chronic idiopathic constipation: Code(s): K59.04 - Chronic idiopathic constipation (2) Left upper quadrant abdominal pain: Code(s): R10.12 - Left upper quadrant pain (3) Status post colonoscopy: Code(s): Z98.890 - Other specified postprocedural states Plan Continue Trulance. Increase fluid intake and activity to promote better bowel motility. Patient will return in 6 months we will discuss going for colonoscopy. Patient will be due to go in October of 2024. Patient will call office if she will have any GI concerning symptoms. She is agreeable to this plan and verbalizes understanding of instructions. She was given the opportunity to ask questions and all questions answered. Thank you for allowing me to participate in her care Coding Level of Care Code Est Pt Level 3 (35291) Diagnoses Chronic idiopathic constipation K59.04 Left upper quadrant abdominal pain R10.12 Status post colonoscopy Z98.890 Time Spent (min) 25 Comment 15 minutes spent with patient and additional 10 minutes spent reviewing her records
[2024-03-03 13:45] VITALS: BP 126/59; PULSE 96; BMI 27.0
== END 2024-03-03 14:09 | disposition home or self-care (01) ==
PROVIDERS: PCP Nurse Practitioner Family; Visit Provider Nurse Practitioner Family
DX: K59.04 Chronic idiopathic constipation (principal); R10.12 Left upper quadrant pain; Z98.890 Other specified postprocedural states
CPT/HCPCS: 99213

== ENCOUNTER → 2024-03-03 13:38 | Outpatient (BNVA) | payer MEDICARE, SELFPAY | PROVIDERS: PCP Nurse Practitioner Family; Visit Provider Nurse Practitioner Family | DX: K59.04 Chronic idiopathic constipation (principal); R10.12 Left upper quadrant pain; Z98.890 Other specified postprocedural states | CPT/HCPCS: 99212 ==

== ENCOUNTER 2024-05-08 11:46 | Outpatient (REF) | payer MEDICARE, SELFPAY ==
--- NOTE | ~2024-05-08 | MM_ITS ---
EXAMINATION: MM SCREENING DIGITAL BREAST TOMOSYNTHESIS, BILATERAL CLINICAL INFORMATION: Screening. Asymptomatic. COMPARISON: Mammography: This study is compared with prior exams dating back to 2021. TECHNIQUE: Digital breast tomosynthesis is performed in both the craniocaudal and mediolateral oblique views along with computer-aided detection (CAD). Synthesized 2D images are generated from the tomosynthesis. FINDINGS: There are scattered areas of fibroglandular density (ACR BI-RADS breast composition Category b). There are no significant masses, abnormal calcifications, or other abnormalities. There is a biopsy tissue marker in the left breast. Bilateral, benign calcifications are present in each breast. MM/MM tomosynthesis screening BI IMPRESSION: No mammographic evidence of malignancy. ASSESSMENT: BI-RADS BI-RADS 2 - Benign Findings RECOMMENDATION: Routine annual mammography screening. 1 year F/U This examination should not preclude the clinical evaluation of a suspicious palpable abnormality. This patient's information was entered into a reminder system with a target due date for their next mammogram.
== END 2024-05-08 11:47 | disposition home or self-care (01) ==
LOC: HO.MAMMO 11:46
PROVIDERS: Visit Provider Nurse Practitioner Family
DX: Z12.31 Encounter for screening mammogram for malignant neoplasm of breast (principal)
CPT/HCPCS: 77063; 77067

== ENCOUNTER → 2024-05-08 12:00 | Outpatient (BNV) | payer MEDICARE, SELFPAY | PROVIDERS: Visit Provider Radiology Diagnostic Radiology | DX: Z12.31 Encounter for screening mammogram for malignant neoplasm of breast (principal) | CPT/HCPCS: 77063; 77067 ==

== ENCOUNTER 2024-05-20 08:31 | Outpatient (REF) | payer MEDICARE, SELFPAY ==
[2024-05-20 11:01] LABS: MANUAL DIFF FLAG NO
[2024-05-20 11:03] LABS: Basophils Percent Auto 0.7 % (0-2); Eosinophils Absolute Auto 0.1 X10*3/uL (0.0-0.4); Eosinophils Percent Auto 1.8 % (0-4); Hematocrit 41.9 % (37.0-47.0); Hemoglobin 13.7 g/dl (12.0-16.0); Imm Gran Abs Auto 0.02 X10*3/uL (0.00-0.03); Imm Gran Pct Auto 0.3 % (0.0-0.4); Lymphocytes Percent Auto 48.9 % (20-40); Mean Corpuscular HGB Conc 32.7 g/dl (31.0-35.0); Mean Corpuscular Hemoglobin 27.5 pg (27.0-33.0); Mean Corpuscular Volume 84.1 fL (80.0-98.0); Mean Platelet Volume 10.7 fL (9.4-12.3); Monocytes Absolute Auto 0.5 X10*3/uL (0.1-1.2); Monocytes Percent Auto 7.9 % (2-11); Neutrophils Absolute Auto 2.5 x10*3/uL (2.0-8.3); Neutrophils Percent Auto 40.4 % (45-73); Platelet Count 288 X10*3/uL (160-400); Red Blood Count 4.98 X10*6/uL (4.20-5.50); Red Cell Distribution Width 13.8 % (11.0-16.0); White Blood Count 6.1 X10*3/uL (4.8-10.8)
[2024-05-20 11:14] LABS: Appearance Urine Clear; Color Urine Yellow; Glucose Urine UA >=1000 mg/dL (Negative); Leukocyte Esterase Urine Trace (Negative); Nitrite Urine Negative (Negative); PH 5.5 (5.0-9.0); Specific Gravity - Urine >= 1.030 (1.005-1.025); UMIC TRIGGER UACC YES; Urine Blood Negative (Negative); Urine Ketones Trace mg/dL (Negative); Urine Protein Negative (Neg-Trace)
[2024-05-20 11:20] LABS: Bacteria Urine 2+ (None Seen); Hyaline Casts Urine 0-2 /LPF (0-2); RBC Urine 0-2 /HPF (0-2); UACC Culture Trigger YES; WBC Urine 21-50 /HPF (0-5)
[2024-05-20 11:29] LABS: Creatinine Urine 132.86 mg/dL; Microalbum/Creatinine Ratio Ur 9.7 ug/mg cr (<30)
[2024-05-20 11:32] LABS: Alanine Aminotransferase 7 U/L (0-31); Albumin Level 4.2 g/dL (3.5-5.0); Anion Gap 12 (12-20); Aspartate Amino Transferase 14 U/L (5-31); Bilirubin Total 0.2 mg/dL (0.0-1.0); Blood Urea Nitrogen 12 mg/dL (9-16); Calcium 9.5 mg/dL (8.4-10.2); Carbon Dioxide 27 mmol/L (22-29); Chloride 107 mmol/L (96-108); Cholesterol 135 mg/dL (<200); Estimated Glomerular Filt Rate > 60; Glucose Fasting 91 mg/dL (60-99); Potassium 4.3 mmol/L (3.3-5.1); Sodium 142 mmol/L (135-145); Total Protein 7.1 g/dL (6.5-8.0); Triglycerides 214 mg/dL (<150)
[2024-05-20 11:33] LABS: Alkaline Phosphatase 86 U/L (39-117); HDL Cholesterol 34 mg/dL (>40); LDL Cholesterol Calculated 59 mg/dL (<100)
[2024-05-20 11:36] LABS: TSH reflex Free T4 2.84 uIU/mL (0.32-4.0)
[2024-05-20 12:25] LABS: Folate 11.3 ng/mL (> or = 4.0); Vitamin B12 1053 pg/mL (200-900)
== END 2024-05-20 08:32 | disposition home or self-care (01) ==
LOC: HO.HMGCLDS 08:31
PROVIDERS: PCP Nurse Practitioner Family; Visit Provider Nurse Practitioner Family
DX: E11.9 Type 2 diabetes mellitus without complications (principal); E53.8 Deficiency of other specified B group vitamins
CPT/HCPCS: 36415; 80053; 80061; 81001; 82043; 82570; 82607; 82746; 84443; 85025; 87086

== ENCOUNTER 2024-05-22 14:04 | Outpatient (AMB) | payer OTHER, SELFPAY ==
[2024-05-22 14:09] VITALS: BP 118/60; PULSE 92; O2SAT 97; BMI 27.5
--- NOTE | 2024-05-22 14:09 | A.OFFPC_ITS ---
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 A1C in office today is 7.1. Microalbumin is up to date. Denies polyuria, polydipsia, and neuropathy. Pt denies any signs and symptoms of hypoglycemia and does know how to correct it. Pt has been working on her diet, meds are working well, will cont to monitor [facility] Medical History Diabetes Murmur Anemia Paroxysmal atrial fibrillation Edema Surgical History H/O colonoscopy History of carpal tunnel surgery of right wrist Hx of hand surgery Family History Mother No problems noted. Father No problems noted. Social History Housing: Apartment Patient Tobacco Use Status: Never used Tobacco e-Cigarette/Vaping Use: Never Used Second Hand Smoke Exposure: No service: No Current occupational status: retired Cognitive needs: No Hearing needs: No Vision needs: No Questionnaire PHQ-9 Over the last 2 weeks, how often have you been bothered by any of the following problems? 1. Little interest or pleasure in doing things: not at all 2. Feeling down, depressed, or hopeless: not at all 3. Trouble falling or staying asleep, or sleeping too much: not at all 4. Feeling tired or having little energy: not at all 5. Poor appetite or overeating: not at all 6. Feeling bad about yourself - or that you are a failure or have let yourself or your family down: not at all 7. Trouble concentrating on things, such as reading the newspaper or watching television: not at all 8. Moving or speaking so slowly that other people could have noticed. Or the opposite - being so fidgety or restless that you have been moving around a lot more than usual: not at all 9. Thoughts that you would be better off or of hurting yourself in some way: not at all Total score: 0 Depression Screening Interpretation: Negative Depression Screening Done: Yes 78510 - PHQ-9 Billing: Yes Source: Developed by Drs. Gonsalo Gomez, Santiago De Leon and colleagues, with an educational yung from [employer]. Thrive Questionnaire Date Thrive assessed: 05/22/24 I am a: Patient What is your living situation today?: I have a steady place to live Within the past 12 months, did the food you bought not last and you didn't have the money to get more?: Sometimes True Within the past 12 months, did you worry whether your food would run out before you got money to buy more?: Often true Do you have trouble paying for medicines?: No Do you have trouble getting transportation to medical appointments?: No Do you have trouble paying your heating and electricity bill?: No THRIVE Score: 2 AUDIT C Alcohol Use Questionnaire (AUDIT-C) 1. How often do you have a drink containing alcohol?: Monthly or less 3. How often do you have six or more drinks on one occasion?: Never Total Score: 1 Score Reviewed/Action Taken: Yes TOMEKA-7 AMB Questionnaire TOMEKA-7 Date TOMEKA - 7 assessed: 10/21/23 Source: Developed by Drs. Gonsalo Gomez, Santiago De Leon and colleagues, with an educational yung from [employer]. Review of Systems Const Reports as per HPI Physical exam (Primary Care) Vital Signs: Last Vital Signs Pulse 92 05/22/24 14:09 BP 118/60 05/22/24 14:09 Pulse Ox 97 05/22/24 14:09 Oxygen Delivery Method Room Air 05/22/24 14:09 BMI result Body Mass Index 27.5 Tobacco/Smoking Status: Tobacco use Status Tobacco use date assessed 10/21/23 05/22/24 14:11 Patient Tobacco Use Status Never used Tobacco 05/22/24 14:11 e-Cigarette/Vaping Use Never Used 05/22/24 14:11 PHQ-9: PHQ-9 Score PHQ-9: Total score 0 05/22/24 17:01 Depression Screening Interpretation: Negative Thrive Assessment: Date of Thrive Assessment Date Thrive assessed 05/22/24 05/22/24 14:11 Const General: cooperative Orientation/consciousness: patient oriented x3 Resp Effort & Inspection: normal respiratory effort Auscultation: clear to auscultation bilaterally Cardio Rate: regular rate Rhythm: regular rhythm Heart sounds: S1 normal heart sound present, S2 normal heart sound present and Murmur heart sound present systolic Neuro General: patient oriented x3 Extrem Other: bilat feet: + sensation with use of monofilament, feet intact Psych Appearance: grossly normal Mental Status: mental status grossly normal Speech and movement: Normal speech and movement present Affect: normal affect Attitude: cooperative Thought process: Normal thought process present Thought content: Normal thought content present Insight: Good insight present (Psych) Judgement: Good judgement present (Psych) Results AMB Hemoglobin A1c AMB Hemoglobin A1c 7.1 % Last Edit by Alberto Case CMA on 05/22/24 14: 44 Results Reviewed Results Reviewed: Laboratory Last Values Hgb A1c (Clinic) 7.1 % (4.0-6.0) H 05/22/24 14:44 Assessment and Plan Assessment & Plan (1) Diabetes mellitus: Code(s): E11.9 - Type 2 diabetes mellitus without complications Plan: cont same regime, work on diet, follow up in 3-4 months Plan The patient agreed to the use of a medical laboratory technologist for this encounter. Scribed for ISMAEL Humphrey by Heather Colon medical laboratory technologist, on 05/22/2024 at 15:00 EST. Orders: Orders AMB Hemoglobin A1c Today Z13.9 - Encounter for screening, unspecified Coding Level of Care Code Est Pt Level 3 (48400) Diagnoses Diabetes mellitus E11.9
== END 2024-05-22 15:07 | disposition home or self-care (01) ==
PROVIDERS: PCP Nurse Practitioner Family; Visit Provider Nurse Practitioner Family
DX: Z13.9 Encounter for screening, unspecified (principal); E11.9 Type 2 diabetes mellitus without complications
CPT/HCPCS: 83036; 99213

== ENCOUNTER 2024-06-15 10:13 | Outpatient (AMB) | payer MEDICARE, SELFPAY ==
--- NOTE | 2024-06-15 10:22 | AM.OFFWIN_ITS ---
Intake Vital Signs 06/15/24 10:23 Height 5 ft 2 in Weight 148 lb BMI 27.1 BP 116/78 Blood Pressure Location Lt brachial Position Sitting Pulse 89 Pulse Source Pulse Oximeter Temp 98.4 F Temp Source Oral Pulse Oximetry (%) 98 Oxygen Delivery Method Room Air Intake Visit Reasons: EP Wax removal Intake Note: pt c/o blocked ears. Started a couple weeks ago Patient Tobacco Use Status: Never used Tobacco Allergies sitagliptin [From Januvia] Allergy (Intermediate, Verified 06/15/24 10:22) diarrhea/vomiting Do you need a note to return to daycare/school/sports/work: No HPI HPI Comments History of Present Illness Details Patient is a 68-year-old female complaining of ear wax in her ears. She states her ears feel like they are full and there is pressure. She denies any changes in her hearing or pain. [facility] Medical History Diabetes Murmur Anemia Paroxysmal atrial fibrillation Edema Surgical History H/O colonoscopy History of carpal tunnel surgery of right wrist Hx of hand surgery Family History Mother No problems noted. Father No problems noted. Social History Housing: Apartment Patient Tobacco Use Status: Never used Tobacco e-Cigarette/Vaping Use: Never Used Second Hand Smoke Exposure: No service: No Current occupational status: retired Cognitive needs: No Hearing needs: No Vision needs: No Review of Systems Const All systems reviewed & are unremarkable except as noted in HPI and below Physical Exam Vital Signs: Last Vital Signs Temp 98.4 F 06/15/24 10:23 Pulse 89 06/15/24 10:23 BP 116/78 06/15/24 10:23 Pulse Ox 98 06/15/24 10:23 Oxygen Delivery Method Room Air 06/15/24 10:23 BMI result Body Mass Index 27.1 Const General: cooperative, healthy appearing, comfortable and no acute distress Orientation/consciousness: patient oriented x3 HEENT Head: Yes normal to inspection Ears: mastoids normal, Abnormal EAC present cerumen impaction and unable to visualize TM (cerumen blockage) bilaterally General nose exam: Normal external nose present Face and sinus: Yes normal facial exam Resp Effort & Inspection: normal respiratory effort and able to speak in complete sentences Neuro General: patient oriented x3 Office Procedures Cerumen Removal From which ear canal was the cerumen removed: bilateral Removal: irrigation Notes: patient tolerated procedure well, no complications and ear canal clear [id number] Irrigation/Lavage Assessment & Plan Assessment & Plan (1) Bilateral impacted cerumen: Code(s): H61.23 - Impacted cerumen, bilateral Plan: Ear canals clear, patient reports her ears feel much better. Recommended she use Debrox drops for maintenance. Plan See above Coding Level of Care Code Est Pt Level 3 (06052) Diagnoses Bilateral impacted cerumen H61.23 CPT Codes Office Procedure - CPT: 85065-Qwy Irrigation/Lavage ([id number])
[2024-06-15 10:23] VITALS: BP 116/78; PULSE 89; TEMP 36.9; O2SAT 98; BMI 27.1
== END 2024-06-15 11:06 | disposition home or self-care (01) ==
PROVIDERS: PCP Nurse Practitioner Family; Visit Provider Physician Assistant
DX: H61.23 Impacted cerumen, bilateral (principal)
CPT/HCPCS: 69209; 99213

== ENCOUNTER 2024-09-04 13:38 | Outpatient (AMB) | payer MEDICARE, SELFPAY ==
[2024-09-04 13:51] VITALS: BP 126/62; PULSE 92; O2SAT 98; BMI 27.5
--- NOTE | 2024-09-04 13:51 | MHC.OFFVIS ---
Vital Signs 09/04/24 13:51 Height 5 ft 2 in Weight 150 lb 5.684 oz BMI 27.5 BP 126/62 Blood Pressure Location Rt brachial Position Sitting Pulse 92 Pulse Source Pulse Oximeter Pulse Oximetry (%) 98 Oxygen Delivery Method Room Air Intake Visit Reasons: Follow up 6 months Intake Note: Relevant Flags or Indicators ? Requires Professional Development Director? Zedla Mabry presents in office today for a scheduled 6 mos FUV. Discuss colo per [facility]IC. CC; No recent labs, diagnostics, or med orders placed. ? Relevant GI Sx as reported per pt? None ? Hx of any recent surgeries? None Professional Development Director Required: No Allergies sitagliptin [From Januvia] Allergy (Intermediate, Verified 09/04/24 13:53) diarrhea/vomiting HPI HPI Follow up 6 months: Details: LAST VISIT: Chronic idiopathic constipation Left upper quadrant abdominal pain Status post colonoscopy Plan Continue Trulance. Increase fluid intake and activity to promote better bowel motility. Patient will return in 6 months we will discuss going for colonoscopy. Patient will be due to go in October of 2024. Patient will call office if she will have any GI concerning symptoms. She is agreeable to this plan and verbalizes understanding of instructions. She was given the opportunity to ask questions and all questions answered. ? TODAY'S VISIT Patient is here today for follow-up and to discuss going for colonoscopy. Patient reports that her symptoms of acid reflux are suppressed currently with omeprazole. Patient had colonoscopy in October of this year and had suboptimal prep. Currently patient is moving her bowels better. Patient reports that her is going for colonoscopy Wednesday and she will be helping him with the prep. Patient is aware that she needs to empty her bowels better. Currently she is on bowel regimen and is moving her bowels better. Patient denies melena, hematochezia, unintentional weight loss or ribbon like stools. Patient denies dyspepsia, dysphagia or odynophagia. [facility] Medical History Diabetes Murmur Anemia Paroxysmal atrial fibrillation Edema Surgical History H/O colonoscopy History of carpal tunnel surgery of right wrist Hx of hand surgery Family History Mother No problems noted. Father No problems noted. Social History Housing: Apartment Patient Tobacco Use Status: Never used Tobacco e-Cigarette/Vaping Use: Never Used Second Hand Smoke Exposure: No service: No Current occupational status: retired Cognitive needs: No Hearing needs: No Vision needs: No Review of Systems Const Denies weight gain and Denies weight loss ENT Reports no additional complaints, Denies dysphagia and Denies odynophagia Card Reports no additional complaints Resp Reports no additional complaints GI Denies abdominal pain, Denies belching, Denies melena, Denies bloating, Denies change in bowel habits, Denies dysphagia, Denies excessive flatus, Denies dyspepsia, Denies heartburn, Denies diarrhea, Denies loose stools, Denies nausea, Denies odynophagia and Denies vomiting Musc Reports no additional complaints Neuro Reports no additional complaints Psych Reports no additional complaints Endo Reports no additional complaints Physical Exam Vital Signs: Last Vital Signs Pulse 92 09/04/24 13:51 BP 126/62 09/04/24 13:51 Pulse Ox 98 09/04/24 13:51 Oxygen Delivery Method Room Air 09/04/24 13:51 BMI result Body Mass Index 27.5 Const General: healthy appearing, no acute distress and well developed Nutritional Appearance: well nourished Orientation/consciousness: patient oriented x3 Resp Effort & Inspection: normal respiratory effort, able to speak in complete sentences, no tracheal deviation and symmetric chest movement Auscultation: clear to auscultation bilaterally Cardio Rate: regular rate GI Inspection: Yes normal to inspection and No distended Palpation (GI): Soft to palpation, not firm, nontender and No hepatosplenomegaly present Auscultation: normal bowel sounds General: Yes no CVA tenderness Back/Spine/Pelvis Back: no CVA tenderness Skin General skin exam: elasticity normal, turgor normal and dry skin Neuro General: patient oriented x3 Psych Appearance: grossly normal Mental Status: mental status grossly normal Assessment & Plan Assessment & Plan (1) Chronic idiopathic constipation: Code(s): K59.04 - Chronic idiopathic constipation (2) Left upper quadrant abdominal pain: Code(s): R10.12 - Left upper quadrant pain (3) Screen for colon cancer: Code(s): Z12.11 - Encounter for screening for malignant neoplasm of colon (4) GERD (gastroesophageal reflux disease): Code(s): K21.9 - Gastro-esophageal reflux disease without esophagitis Qualifiers: Esophagitis presence: esophagitis presence not specified Qualified Code(s): K21.9 - Gastro-esophageal reflux disease without esophagitis Plan What to expect before during and after procedure discussed with patient. Patient can take additional Dulcolax daily specially week before procedure. Patient has appointment with her transmission builder October 05, will ask for risk stratification as well as time went to stop Eliquis. Patient denies any cardiac or respiratory symptoms. Patient denies any history of sleep apnea. Patient is on Eliquis and that will need to be stopped 48 hours before if she is cleared by Cardiology. Patient is also on lisinopril, glipizide and Jardiance. She is taking GLP 1 weekly. RN is to remind patient to stop 7 day before going for procedure. Patient is going to follow-up in our office after the procedure, sooner on as needed basis. She is agreeable to this plan and verbalizes understanding of instructions. She was given the opportunity to ask questions and all questions answered. Thank you for allowing me to participate in her care Medications: New polyethylene glycol 3350 (Miralax) As directed by gastroenterology department at [facility] 238 grams PO ONCE 238 grams 0RF Z12.11 - Encounter for screening for malignant neoplasm of colon bisacodyl (Dulcolax (bisacodyl)) 10 mg (2 x 5 mg) PO BEDTIME 180 tabs 4RF Coding Level of Care Code Est Pt Level 4 (72192) Complex EM visit Add On G2211 Diagnoses Chronic idiopathic constipation K59.04 Left upper quadrant abdominal pain R10.12 Screen for colon cancer Z12.11 Gastroesophageal reflux disease, unspecified whether esophagitis present K21.9 Esophagitis presence: esophagitis presence not specified Time Spent (min) 35 Comment 20 minutes spent with patient and additional 15 minutes spent reviewing her records
== END 2024-09-04 14:39 | disposition home or self-care (01) ==
PROVIDERS: PCP Nurse Practitioner Family; Visit Provider Nurse Practitioner Family
DX: K59.04 Chronic idiopathic constipation (principal); R10.12 Left upper quadrant pain; Z12.11 Encounter for screening for malignant neoplasm of colon; K21.9 Gastro-esophageal reflux disease without esophagitis
CPT/HCPCS: 99214; G2211

== ENCOUNTER → 2024-09-04 13:38 | Outpatient (BNVA) | payer MEDICARE, SELFPAY | PROVIDERS: PCP Nurse Practitioner Family; Visit Provider Nurse Practitioner Family | DX: K59.04 Chronic idiopathic constipation (principal); K21.9 Gastro-esophageal reflux disease without esophagitis; R10.12 Left upper quadrant pain | CPT/HCPCS: 99212 ==

== ENCOUNTER 2024-09-26 13:01 | Outpatient (AMB) | payer MEDICARE, SELFPAY ==
[2024-09-26 13:16] VITALS: BP 120/60; PULSE 92; O2SAT 97; BMI 27.4
--- NOTE | 2024-09-26 13:16 | A.OFFPC_ITS ---
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 Accompanied by: Self / Same As Patient Allergies sitagliptin [From Normuvshaista] Allergy (Intermediate, Verified 09/26/24 13:55) diarrhea/vomiting Medication List - Last Reconciled 09/26/24 by Chris Singh, [facility] albuterol sulfate 90 mcg/actuation 2 puffs inhalation Q4H PRN apixaban (Eliquis) 5 mg PO BID 90 days atorvastatin 20 mg PO DAILY bisacodyl (Dulcolax (bisacodyl)) 10 mg (2 x 5 mg) PO BEDTIME cyanocobalamin (vitamin B-12) 500 mcg PO Q OTHER DAY docusate sodium 100 mg PO BID empagliflozin (Jardiance) 25 mg PO DAILY ferrous sulfate 325 mg PO DAILY fluticasone propionate 50 mcg/actuation 50 sprays intranasal DAILY glipizide ER 20 mg (2 x 10 mg) PO DAILY incontinence pad, liner, disp (Prevail Panty Liner pads) As directed lisinopril 2.5 mg PO DAILY metformin 1,000 mg PO BID metoprolol succinate ER 50 mg PO DAILY 90 days mirabegron ER (Myrbetriq) 25 mg PO DAILY omeprazole 40 mg PO DAILY plecanatide (Trulance) 3 mg PO DAILY salmeterol (Serevent Diskus) 1 inh inhalation BID semaglutide (Ozempic) 2 mg (0.75 mL) subcut QWEEK [skin care wipes As directed] Tobacco use date assessed: 10/21/23 Fall risk assessment: No Falls in past year Last assessed Fall Risk: 09/26/24 Dental Screening Dental Screen Date: 10/21/23 HPI 4 mon f/u HPI Details Chief Complaint Wellness visit with recent gastrointestinal gas discomfort and leg cramps. History of Present Illness The patient is a 69-year-old female presenting for a visit for Type 2 Diabetes Mellitus. The patient's HbA1c was noted to be 6.4. Her last eye examination is up to date. The patient denies experiencing any neuropathy, polydipsia, or polyuria, which are often associated with diabetes. She has reported no fevers, chills, nausea, vomiting, chest pain, or shortness of breath. Recently, the patient has experienced increased gastrointestinal gas discomfort. Additionally, she has been having occasional leg cramps. Social History - No social determinants of health were discussed. Health Maintenance - Eye exam noted to be up to date. Review of Systems - General: Denies fevers, chills, nausea , and vomiting. - Cardiovascular: Denies chest pain. - Respiratory: Denies shortness of breat h. - Neurological: Denies neuropathy. - Genitourinary: Denies polydipsia and p olyuria. Physical Exam General: Cooperative, healthy appearing, comfortable, no acute distress and well developed Orientation: Patient oriented x3 Limitations: No limitations Head: Normal to inspection Ears: Hearing grossly normal bilaterally Nose: Normal external nose present Face and sinus: Normal facial exam Eyes: Appearance normal, both eyes and all related structures Neck: Normal visual inspection and Yes full ROM Respiratory: Normal respiratory effort and able to speak in complete sentences. Clear to auscultation bilaterally Cardiovascular: Regular rate and rhythm. Normal S1 and S2. Faint systolic murmur present GI: Normal to inspection. Soft to palpation and nontender. Reports some in creased gas discomfort Skin: No rashes or lesions noted Neuro: Patient oriented x3 Extremities: Normal to inspection. Feet are intact, with positive sensation with use of monofilament, no edema or erythema Results - Labs: HbA1c at 6.4. Plan - Initiate probiotic to address gastroin testinal gas discomfort. - Start magnesium supplementation to all eviate leg cramps. - Encourage increased fluid intake and m aintain adequate electrolyte balance. Patient was informed and verbally consented to the use of an ambient scribe for clinic note documentation during this visit. Discussion Notes I discussed with the patient her current management plan for Type 2 Diabetes Mellitus, noting the acceptable HbA1c level of 6.4. We reviewed the importance of maintaining regular follow-ups for diabetes management. I addressed her gastrointestinal discomfort, recommending the start of probiotics. For leg cramps, we discussed beginning magnesium supplementation along with increasing her fluid and electrolyte intake. The patient understood and agreed with the outlined management plans. denied any s/s of DVT Patient Instructions - Begin taking probiotics as directed. - Take magnesium supplements to help wit h leg cramps. - Increase your fluid intake and ensure you have a balanced intake of electrolytes. - Continue regular diabetes management a nd follow up with any new or worsening symptoms. [facility] Medical History (Updated 09/26/24 @ 13:58 by Chris Singh, [facility]) Diabetes Murmur Anemia Paroxysmal atrial fibrillation Edema Surgical History H/O colonoscopy History of carpal tunnel surgery of right wrist Hx of hand surgery Family History Mother No problems noted. Father No problems noted. Social History Housing: Apartment Patient Tobacco Use Status: Never used Tobacco e-Cigarette/Vaping Use: Never Used Second Hand Smoke Exposure: No service: No Current occupational status: retired Cognitive needs: No Hearing needs: No Vision needs: No Questionnaire Thrive Questionnaire Date Thrive assessed: 05/22/24 Do you have trouble getting transportation to medical appointments?: No Do you have trouble paying your heating and electricity bill?: No Do you have trouble taking care of your child, family member or friend?: No Do you have trouble with day-to-day activities such as bathing, preparing meals, shopping, managing finances, etc.?: I choose not to answer this question Are you currently unemployed and looking for a job?: No Are you interested in more education?: No Please select the resources that you would like help with: None Currently or been in a relationship where the following occur: I choose not to answer THRIVE Score: 0 AUDIT C Alcohol Use Questionnaire (AUDIT-C) 1. How often do you have a drink containing alcohol?: Monthly or less 2. How many drinks containing alcohol do you have on a typical day when you are drinking?: 1 or 2 3. How often do you have six or more drinks on one occasion?: Never Total Score: 1 TOMEKA-7 AMB Questionnaire TOMEKA-7 Date TOMEKA - 7 assessed: 10/21/23 Feeling nervous, anxious, or on edge: 0 = Not at all Not being able to stop or control worryin = Not at all Worrying too much about different things: 0 = Not at all Trouble relaxin = Not at all Being so restless that it is hard to sit still: 0 = Not at all Becoming easily annoyed or irritable: 0 = Not at all Feeling afraid as if something awful might happen: 0 = Not at all Total TOMEKA-7 score (0-4 normal; 5-9 mild; 10-14 moderate; 15-21 severe): 0 Source: Developed by Drs. Gonsalo Gomez, Jerilyn Doe, Santiago Wakefield and colleagues, with an educational yung from [employer]. Physical exam (Primary Care) Vital Signs: Last Vital Signs Pulse 92 09/26/24 13:16 BP 120/60 09/26/24 13:16 Pulse Ox 97 09/26/24 13:16 BMI result Body Mass Index 27.4 Tobacco/Smoking Status: Tobacco use Status Tobacco use date assessed 10/21/23 09/26/24 13:17 Patient Tobacco Use Status Never used Tobacco 09/26/24 13:17 e-Cigarette/Vaping Use Never Used 09/26/24 13:17 Thrive Assessment: Date of Thrive Assessment Date Thrive assessed 05/22/24 09/26/24 13:17 Currently or been in a relationship where the following occur: I choose not to answer Coding Level of Care Code Est Pt Level 3 (70577) Diagnoses Diabetes mellitus E11.9 Leg cramps R25.2 Excessive gas R14.3 Assessment & Plan Assessment & Plan (1) Diabetes mellitus: Code(s): E11.9 - Type 2 diabetes mellitus without complications Category: Medical (2) Leg cramps: Code(s): R25.2 - Cramp and spasm Category: Medical (3) Excessive gas: Code(s): R14.3 - Flatulence Category: Medical Plan . Orders: Orders Complete Blood Count Auto Diff Today E11.9 - Type 2 diabetes mellitus without complications Comprehensive [place]. Panel Fast Today E11.9 - Type 2 diabetes mellitus without complications TSH reflex Free T4 Today E11.9 - Type 2 diabetes mellitus without complications UA CC w/rflx Micro + Cult Today E11.9 - Type 2 diabetes mellitus without complications Lipid Panel Today E11.9 - Type 2 diabetes mellitus without complications
== END 2024-09-26 14:20 | disposition home or self-care (01) ==
PROVIDERS: PCP Nurse Practitioner Family; Visit Provider Nurse Practitioner Family
DX: E11.9 Type 2 diabetes mellitus without complications (principal); R25.2 Cramp and spasm; R14.3 Flatulence; Z23 Encounter for immunization; Z13.9 Encounter for screening, unspecified

== ENCOUNTER → 2024-09-26 13:01 | Outpatient (BNVA) | payer MEDICARE, SELFPAY | PROVIDERS: PCP Nurse Practitioner Family; Visit Provider Nurse Practitioner Family | DX: E11.9 Type 2 diabetes mellitus without complications (principal); R25.2 Cramp and spasm; R14.3 Flatulence; Z23 Encounter for immunization | CPT/HCPCS: 83036; 90471; 90715; 99212 ==

== ENCOUNTER 2024-10-05 14:12 | Outpatient (AMB) | payer MEDICARE, SELFPAY ==
--- NOTE | 2024-10-05 14:22 | MHC.OFFVIS ---
Vital Signs 10/05/24 14:23 Height 5 ft 2 in Weight 147 lb 11.355 oz BMI 27.0 BP 132/62 Blood Pressure Location Lt brachial Position Sitting Pulse 93 Pulse Source Monitor Intake Visit Reasons: 1 yr s/p echo/ preop luiz/colonoscopy Allergies sitagliptin [From [facility]] Allergy (Intermediate, Verified 09/26/24 13:55) diarrhea/vomiting Medication List - Last Reconciled 10/05/24 by Dimas Messer MD albuterol sulfate 90 mcg/actuation 2 puffs inhalation Q4H PRN apixaban (Eliquis) 5 mg PO BID 90 days atorvastatin 20 mg PO DAILY bisacodyl (Dulcolax (bisacodyl)) 10 mg (2 x 5 mg) PO BEDTIME cyanocobalamin (vitamin B-12) 500 mcg PO Q OTHER DAY docusate sodium 100 mg PO BID empagliflozin (Jardiance) 25 mg PO DAILY ferrous sulfate 325 mg PO DAILY fluticasone propionate 50 mcg/actuation 50 sprays intranasal DAILY glipizide ER 20 mg (2 x 10 mg) PO DAILY incontinence pad, liner, disp (Prevail Panty Liner pads) As directed lisinopril 2.5 mg PO DAILY metformin 1,000 mg PO BID metoprolol succinate ER 50 mg PO DAILY 90 days mirabegron ER (Myrbetriq) 25 mg PO DAILY omeprazole 40 mg PO DAILY plecanatide (Trulance) 3 mg PO DAILY salmeterol (Serevent Diskus) 1 inh inhalation BID semaglutide (Ozempic) 2 mg (0.75 mL) subcut QWEEK [skin care wipes As directed] HPI Comments Details: Clotilde comes for follow-up. She has been doing well from cardiac perspective. She denies any exertional symptoms of chest pain or shortness of breath. Remains in good shape. Denies any prolonged palpitation irregular heartbeat. Scheduled to undergo colonoscopy again for GI symptoms. [facility] Medical History Diabetes Murmur Anemia Paroxysmal atrial fibrillation Edema Surgical History H/O colonoscopy History of carpal tunnel surgery of right wrist Hx of hand surgery Family History Mother No problems noted. Father No problems noted. Social History Housing: Apartment Patient Tobacco Use Status: Never used Tobacco e-Cigarette/Vaping Use: Never Used Second Hand Smoke Exposure: No service: No Current occupational status: retired Cognitive needs: No Hearing needs: No Vision needs: No Review of Systems Const Denies weakness ENT Denies dizziness Card Denies chest pain, Denies chest pain with activity, Denies syncope, Denies rapid heart rate, Denies pedal edema, Denies edema, Denies leg edema, Denies lightheadedness, Denies palpitations, Denies dyspnea, Denies dyspnea on exertion and Denies orthopnea Resp Denies cough, Denies dyspnea and Denies dyspnea on exertion GI Denies hematochezia and Denies change in stool character Musc Denies abnormal gait, Denies muscle cramps, Denies muscle weakness, Denies numbness, Denies radiating pain into limb and Denies tingling Neuro Denies abnormal gait, Denies dizziness, Denies syncope, Denies numbness, Denies tingling and Denies weakness Endo Denies palpitations Physical Exam Vital Signs: Last Vital Signs Pulse 93 10/05/24 14:23 BP 132/62 10/05/24 14:23 BMI result Body Mass Index 27.0 Const General: cooperative, comfortable, no acute distress, alert, awake, Physically active and well groomed Nutritional Appearance: overweight Orientation/consciousness: patient oriented x3 Limitations: no limitations HEENT Head: Yes normocephalic and Yes atraumatic Neck Neck: Yes trachea midline, Yes supple and Yes no JVD Resp Effort & Inspection: normal respiratory effort Auscultation: clear to auscultation bilaterally Cardio Jugular venous distension: no JVD Palpation: normal PMI Rate: regular rate Rhythm: regular rhythm Heart sounds: S1 normal heart sound present, S2 normal heart sound present, no click, no gallops and Murmur heart sound present systolic early GI Auscultation: normal bowel sounds Skin General skin exam: no rashes or lesions noted Neuro General: patient oriented x3 and no focal motor deficits Extrem General: Yes no clubbing, cyanosis or edema Psych Appearance: grossly normal Office Procedures EKG Details: EKG shows normal sinus rhythm with low-voltage QRS with QS pattern in lead V1 V2. [id number], Complete Assessment & Plan Assessment & Plan (1) Paroxysmal atrial fibrillation: Code(s): I48.0 - Paroxysmal atrial fibrillation Category: Medical Plan: Paroxysmal atrial fibrillation without any obvious clinical recurrence at this point time. Continue rhythm control approach. Currently doing well with metoprolol therapy. Continue the same. Avoidance of stimulants was discussed. CHADSVASc score of 3-4. Continue full oral anticoagulation, currently on Eliquis 5 mg b.i.d.. Semi annual renal function test to be pursued. (2) Preoperative cardiovascular examination: Code(s): Z01.810 - Encounter for preprocedural cardiovascular examination Plan: Preoperative cardiovascular risk stratification for colonoscopy which is a low risk procedure. Patient currently has no symptoms from cardiac perspective including with exertion in good functional capacity. She is optimized to undergo the procedure with low risk for perioperative cardiovascular morbidity mortality. Eliquis can be withheld 2-3 days prior to the procedure and resumed as soon as possible after the procedure with associated thromboembolic risk. Will repeat echocardiogram to assess calcific valvular changes in 1 year's time. Will follow up in the clinic in 1 year's time, sooner p.r.n.. Thank you for allowing me to partake in his care Orders: Orders CA echo transthoracic complete 1 Year I48.0 - Paroxysmal atrial fibrillation Coding Level of Care Code Est Pt Level 4 (92229) Complex EM visit Add On G2211 Diagnoses Paroxysmal atrial fibrillation I48.0 Preoperative cardiovascular examination Z01.810 CPT Codes EKG - CPT: 10085-[id number], Complete ([id number])
[2024-10-05 14:23] VITALS: BP 132/62; PULSE 93; BMI 27.0
== END 2024-10-05 14:41 | disposition home or self-care (01) ==
PROVIDERS: PCP Nurse Practitioner Family; Visit Provider Internal Medicine Cardiovascular Disease
DX: I48.0 Paroxysmal atrial fibrillation (principal); Z01.810 Encounter for preprocedural cardiovascular examination
CPT/HCPCS: 93010; 99214; G2211

== ENCOUNTER → 2024-10-05 14:12 | Outpatient (BNVA) | payer MEDICARE, SELFPAY | PROVIDERS: PCP Nurse Practitioner Family; Visit Provider Internal Medicine Cardiovascular Disease | DX: Z01.810 Encounter for preprocedural cardiovascular examination (principal); I48.0 Paroxysmal atrial fibrillation | CPT/HCPCS: 93005; 99212 ==

== ENCOUNTER 2024-12-27 08:13 | Day surgery (SDC) | payer MEDICARE, SELFPAY ==
--- NOTE | 2024-12-26 09:47 | HO.ANESPROP2 ---
Documented by User: Melony Gongora NP 12/26/24 09:48 HPI - Anesthesia Eval Consult details Narrative: 69yo F for Upper Endoscopy and Colonoscopy Cardiac optimized. Follow [facility] cardiology for afib. Stable and asymptomatic at 09/2024 office visit. Eliquis for afib Anesthesia Pre-Procedure Meds Is the patient on any of the following meds?: GLP1/DPP4 and SGLT2 Inhib PMFSH Active Problems Active Problems: All Active Problems Excessive gas (Acute) Leg cramps (Acute) Bilateral impacted cerumen (Acute) Cough (Acute) Fecal soiling (Acute) Postmenopausal (Acute) Positive colorectal cancer screening using Cologuard test (Acute) Anemia (Acute) Asthmatic bronchitis (Acute) Reactive airway disease (Acute) Right shoulder pain (Acute) B12 deficiency (Acute) Systolic murmur (Acute) Diabetes mellitus (Acute) Paroxysmal atrial fibrillation (Acute) Edema (Acute) Past Medical History Medical History Diabetes Murmur Anemia Paroxysmal atrial fibrillation Edema Family History Family History Mother No problems noted. Father No problems noted. Family history of problems with anesthesia: No Surgical History Surgical History H/O colonoscopy History of carpal tunnel surgery of right wrist Hx of hand surgery History of Problems with Anesthesia: No Social History Social History Housing: Apartment Patient Tobacco Use Status: Never used Tobacco e-Cigarette/Vaping Use: Never Used Second Hand Smoke Exposure: No Use of substances other than those prescribed or required for medical reasons: No Have you been hit, kicked, punched, or otherwise hurt by someone within the past year? If so, by whom?: No Are you DNR?: No Advance Directives: No Advance Directives Information Provided: Yes Recently lost weight without trying: No Patient : No service: No Current occupational status: retired Cognitive needs: No Hearing needs: No Vision needs: No Meds Allergies Allergy/AdvReac Type Severity Reaction Status Date / Time sitagliptin [From Octuvia] Allergy Intermediate diarrhea/vo Verified 09/26/24 13:55 miting Exam Narrative Narrative: EKG 09/2024 EKG Details: EKG shows normal sinus rhythm with low-voltage QRS with QS pattern in lead V1 V2. Assessment and Plan Assessment Anesthesia Assessment: Chart Reviewed Final Anesthetic Review Family History of Problems with Anesthesia: No History of Problems with Anesthesia: No Documented by User: Audrey Bowen MD 12/27/24 08:50 [facility] Past Medical History Medical History Diabetes Murmur Anemia Paroxysmal atrial fibrillation Edema Family History Family History Mother No problems noted. Father No problems noted. Surgical History Surgical History H/O colonoscopy History of carpal tunnel surgery of right wrist Hx of hand surgery Social History Social History Housing: Apartment Patient Tobacco Use Status: Never used Tobacco e-Cigarette/Vaping Use: Never Used Second Hand Smoke Exposure: No Use of substances other than those prescribed or required for medical reasons: No Have you been hit, kicked, punched, or otherwise hurt by someone within the past year? If so, by whom?: No Are you DNR?: No Advance Directives: No Advance Directives Information Provided: Yes Recently lost weight without trying: No Patient : No service: No Current occupational status: retired Cognitive needs: No Hearing needs: No Vision needs: No Meds Allergies Allergy/AdvReac Type Severity Reaction Status Date / Time sitagliptin [From Januvia] Allergy Intermediate diarrhea/vo Verified 09/26/24 13:55 miting Exam Airway Mallampati Class: II TM Dist: >3cm Neck ROM: Full Denture: Upper Heart: rrr Lungs: cta Assessment and Plan Assessment Anesthesia Assessment: Anesthesia Plan Discussed Final Anesthetic Review NPO: Yes ASA Class: III Final Preanesthetic Review: No Changes in Pt Med Stat, Meds/Allgs Chart Reviewed and Consent Obtained/Reviewed Patient Risk: Intermediate Procedure Risk: Intermediate Anesthetic Plan Anesthetic Plan: MAC: Disposition: Standard PACU
[2024-12-27 08:22] VITALS: BP 119/57; PULSE 100; RESP 16; TEMP 36.8; O2SAT 98; BMI 27.2
[2024-12-27] MEDS: Lactated Ringers 1,000 ML 100 ML IVCONT (08:41)
[2024-12-27 08:42] LABS: Glucose, Whole Blood 122 mg/dL (60-115)
--- NOTE | 2024-12-27 09:14 | MHC.SHP ---
Pre-Procedural Eval Section A - 24 Hr Update-Section A only Date of Service: 12/27/24 Section B - Complete if H&P > 30 days Chief Complaint: screening,reflux Relevant Family History (Specify if Yes): No Relevant Social History: None Present Medications: see Short Stay Collaborative assessment Medical History: Significant History (Diabetes Murmur Anemia Paroxysmal atrial fibrillation Edema) History of Previous Operations: Relevant previous surgery/procedure and date(s) (H/O colonoscopy History of carpal tunnel surgery of right wrist Hx of hand surgery) Allergies: Allergies Allergy/AdvReac Type Severity Reaction Status Date / Time sitagliptin [From Januvia] Allergy Intermediate diarrhea/vo Verified 09/26/24 13:55 miting Review of Systems Sugical H&P ROS: Negative: Constitution, Cardiovascular, Respiratory, Neurological, Psychiatric, Hem-Onc, Allergic/Immunologic, Gastrointestinal, Genitourinary, Musculoskeletal, Integumentary, Endocrine and Eyes/Ears/Nose/Throat Exam Surgical H&P Exam: Normal: HEENT, Normal: Heart, Normal: Lungs, Normal: Extremities, Normal: Abdomen, Normal: Skin and Normal: Neurological Plan Diagnosis/Plan: Unchanged I have reviewed the history and physical and performed a pertinent physical examination on my patient. No changes have occurred unless specified. Time Spent With Patient Time: Total time managing care of this patient today ____ minutes.
--- NOTE | 2024-12-27 09:23 | HO.OPN-COLON ---
Colonoscopy Operative Note Operative Note Date of Service: 12/27/24 Narrative: Operative Information Procedure Description: EGD, Colonoscopy Indication: GERD, and screening Anesthesia: MAC FLEXIBLE TRANSORAL UPPER GASTROINTESTINAL ENDOSCOPY AND COLONOSCOPY PROCEDURE NOTE UPPER ENDOSCOPY Consent: Indications for the procedure and potential complications of bleeding, perforation, reaction to medications and missed diagnosis were discussed with the patient and informed consent was obtained. Instrument: Olympus GIF H 190 J mid size upper endoscope Monitoring: Vital signs and clinical assessment, continuous EKG monitoring, Pulse oximetry, Carbon Dioxide monitoring and blood pressure monitoring were done throughout the procedure. Procedure: The patient was placed in the left lateral decubitis position and pre-procedure medications were administered and a bite block was placed. The endoscope was inserted into the mouth and advanced under direct vision to the third part of duodenum. A careful inspection was made as the upper endoscope was withdrawn including a retroflexed examination of the proximal stomach; Findings and interventions are described below. Findings: Larynx:normal Esophagus: GE junction at 33 cm, diaphragm hiatus at 35 cm, consistent with 2 cm sliding hiatal hernia, small tongues of salmon pink tissue noted suspicious for barretts -bx taken Stomach: Nodular, coarse mucosa. Biopsies were obtained. Grade 2 flap valve on retroflexed examination of the cardia. Duodenum: Normal bulb and descending duodenum, bx taken Intervention: Biopsies as noted above, COLONOSCOPY Instrument: Olympus variable stiffness ADULT scope 190L Colonoscopy Monitoring: Vital signs and clinical assessment, continuous EKG monitoring, Pulse oximetry, Carbon Dioxide monitoring and blood pressure monitoring were done throughout the procedure. Colon withdrawal time was 8 minutes. Procedure: The patient was placed in the left lateral decubitis position and pre-procedure medications were administered. After a digital rectal examination of the ano-rectum, the video colonoscope was inserted into the rectum and advanced through the colon to the cecum/TI. The colonoscope was slowly withdrawn in a retrograde panoramic fashion and the colon mucosa was carefully examined including a retroflexed view of the rectum. Findings and interventions are described below. Procedure Difficulty:moderate--had to use colowrap Findings: Terminal Ileum-normal Cecum:normal Ascending Colon: normal Transverse Colon -normal Descending Colon:normal Sigmoid Colon: normal Rectum: Retroflexion with small internal hemorrhoids, grade I Anorectum - normal Colon preparation: Ter[place]on Bowel Preparation Scale Right colon; 1-2 Transverse colon: 2 Left colon; 2 (0 = Unprepared colon segment with mucosa not seen due to solid stool that cannot be cleared. 1 = Portion of mucosa of the colon segment seen, but other areas of the colon segment not well seen due to staining, residual stool and/or opaque liquid. 2 = Minor amount of residual staining, small fragments of stool and/or opaque liquid, but mucosa of colon segment seen well. 3 = Entire mucosa of colon segment seen well with no residual staining, small fragments of stool or opaque liquid) Impression and Post Procedure Diagnosis: Endoscopy Findings: hiatal hernia gastritis barretts Colonoscopy Findings: tortuous colon internal hemorrhoids Plan: Await Pathology results Repeat Colonoscopy in 5 years due to fair prep in some areas or earlier if clinically indicated High fiber diet leaflet avoid straining at stool, epsom salts and sitz bath, anusol supps or cream repeat EGD in about 3 yrs pending tissue cypher and bx results Above findings were reviewed with the patient and relevant handouts were provided if indicated.
[2024-12-27 10:05] VITALS: BP 108/58; PULSE 85; RESP 16; TEMP 36.2; O2SAT 97
[2024-12-27 10:20] VITALS: BP 133/68; PULSE 84; RESP 16; O2SAT 97
[2024-12-27 10:44] VITALS: BP 158/66; PULSE 84; RESP 16; TEMP 36.4; O2SAT 97
== END 2024-12-27 11:07 | disposition home or self-care (01) ==
PROVIDERS: PCP Nurse Practitioner Family; Visit Provider Internal Medicine Gastroenterology
PROC: (CPT 43239; principal; 2024-12-27 09:30)
DX: Z12.11 Encounter for screening for malignant neoplasm of colon (principal); K56.2 Volvulus; K64.0 First degree hemorrhoids; K22.70 Barrett's esophagus without dysplasia; K29.70 Gastritis, unspecified, without bleeding; K44.9 Diaphragmatic hernia without obstruction or gangrene; K21.9 Gastro-esophageal reflux disease without esophagitis; E11.9 Type 2 diabetes mellitus without complications; I48.0 Paroxysmal atrial fibrillation; D64.9 Anemia, unspecified; Z79.899 Other long term (current) drug therapy
CPT/HCPCS: 43239; G0121; 82947; 88305; 88313; 88342; J2003; J2704

== ENCOUNTER → 2024-12-27 08:13 | Outpatient (BNV) | payer MEDICARE, SELFPAY | PROVIDERS: PCP Nurse Practitioner Family; Visit Provider Internal Medicine Gastroenterology | DX: Z12.11 Encounter for screening for malignant neoplasm of colon (principal); Q43.8 Other specified congenital malformations of intestine; K64.0 First degree hemorrhoids; K21.9 Gastro-esophageal reflux disease without esophagitis; K29.70 Gastritis, unspecified, without bleeding; K22.70 Barrett's esophagus without dysplasia | CPT/HCPCS: 43239; G0121 ==

== ENCOUNTER 2025-01-19 13:26 | Outpatient (AMB) | payer MEDICARE, SELFPAY ==
--- NOTE | 2025-01-19 13:30 | MHC.OFFVIS ---
Vital Signs 01/19/25 13:31 Height 5 ft 2 in Weight 150 lb 12.739 oz BMI 27.6 BP 126/68 Blood Pressure Location Rt brachial Position Sitting Pulse 86 Pulse Source Pulse Oximeter Pulse Oximetry (%) 98 Oxygen Delivery Method Room Air Intake Visit Reasons: s/p duo w/ Vázquez Intake Note: ESTABLISHED PATIENT for s/p duo. Chief Complaint; C/O increased constipation and B/L UQ pain. Pt reports that she typically has BM q4 days. Has noticed increased delay in BM since having procedure. No additional sx or concerns at this time. Pt also reports that she needs a refill of colace. 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 Patient can take additional Dulcolax daily specially week before procedure. 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 Patient denies any cardiac or respiratory symptoms. Patient denies any history of sleep apnea. Patient is on Eliquis and that will need to be stopped 48 hours before if she is cleared by Cardiology. Patient is also on lisinopril, glipizide and Jardiance. She is taking GLP 1 weekly. RN is to remind patient to stop 7 day before going for procedure. Patient is going to follow-up in our office after the procedure, sooner on as needed basis. She is agreeable to this plan and verbalizes understanding of instructions. She was given the opportunity to ask questions and all questions answered. ? Thank you for allowing me to participate in her care Medications New polyethylene glycol 3350 (Miralax) As directed by gastroenterology department at [facility] 238 grams PO ONCE 238 grams 0RF Z12.11 bisacodyl (Dulcolax (bisacodyl)) 10 mg (2 x 5 mg) PO BEDTIME 180 tabs 4RF UPPER ENDOSCOPY AND COLONOSCOPY Findings: Larynx:normal Esophagus: GE junction at 33 cm, diaphragm hiatus at 35 cm, consistent with 2 cm sliding hiatal hernia, small tongues of salmon pink tissue noted suspicious for barretts -bx taken Stomach: Nodular, coarse mucosa. Biopsies were obtained. Grade 2 flap valve on retroflexed examination of the cardia. Duodenum: Normal bulb and descending duodenum, bx taken Intervention: Biopsies as noted above, COLONOSCOPY Instrument: Olympus variable stiffness ADULT scope 190L Colonoscopy Monitoring: Vital signs and clinical assessment, continuous EKG monitoring, Pulse oximetry, Carbon Dioxide monitoring and blood pressure monitoring were done throughout the procedure. Colon withdrawal time was 8 minutes. Procedure: The patient was placed in the left lateral decubitis position and pre-procedure medications were administered. After a digital rectal examination of the ano-rectum, the video colonoscope was inserted into the rectum and advanced through the colon to the cecum/TI. The colonoscope was slowly withdrawn in a retrograde panoramic fashion and the colon mucosa was carefully examined including a retroflexed view of the rectum. Findings and interventions are described below. Procedure Difficulty:moderate--had to use colowrap Findings: Terminal Ileum-normal Cecum:normal Ascending Colon: normal Transverse Colon -normal Descending Colon:normal Sigmoid Colon: normal Rectum: Retroflexion with small internal hemorrhoids, grade I Anorectum - normal Colon preparation: Mcgrath Bowel Preparation Scale Right colon; 1-2 Transverse colon: 2 Left colon; 2 (0 = Unprepared colon segment with mucosa not seen due to solid stool that cannot be cleared. 1 = Portion of mucosa of the colon segment seen, but other areas of the colon segment not well seen due to staining, residual stool and/or opaque liquid. 2 = Minor amount of residual staining, small fragments of stool and/or opaque liquid, but mucosa of colon segment seen well. 3 = Entire mucosa of colon segment seen well with no residual staining, small fragments of stool or opaque liquid) Impression and Post Procedure Diagnosis: Endoscopy Findings: hiatal hernia gastritis barretts Colonoscopy Findings: tortuous colon internal hemorrhoids Plan: Await Pathology results Repeat Colonoscopy in 5 years due to fair prep in some areas or earlier if clinically indicated High fiber diet leaflet avoid straining at stool, epsom salts and sitz bath, anusol supps or cream repeat EGD in about 3 yrs pending tissue cypher and bx results PATHOLOGY RESULTS Diagnosis A. Duodenum, biopsy: Duodenal mucosa within normal limits. B. Stomach, biopsy: Oxyntic mucosa with mild chronic inactive inflammation; no Helicobacter organisms seen. C. GE junction, biopsy: - Pires esophagus with background moderate chronic inactive inflammation. - No dysplasia seen. - Squamous epithelium within normal limits. Comment: TissueCypher results (C) will be addended TODAY'S VISIT Patient is here today for follow-up and to discuss upper endoscopy and colonoscopy results. Patient denies any ill effects from the prep, anesthesia placed your itself. Patient reports to be feeling fairly well. Denies melena, hematochezia. However patient reports that she continues to be constipated. However patient has been constipated even before procedure. Was taking Trulance and Dulcolax. Currently she is only taking Dulcolax at bedtime. Bowel movement every 3-4 days. Colonoscopy no polyps found, torturous colon and hemorrhoids. Suboptimal prep colonoscopy to be repeated in 5 years. Upper endoscopy shows Barretts with chronic inactive inflammation. No dysplasia. No H pylori. Patient reports that she has been taking omeprazole her symptoms of acid reflux are suppressed. Patient denies dyspepsia, dysphagia or odynophagia. [facility] Medical History (Updated 01/19/25 @ 14:12 by Mary Salazar [facility]) Pires's esophagus determined by biopsy Barretts esophagus Diabetes Murmur Anemia Paroxysmal atrial fibrillation Edema Surgical History H/O colonoscopy History of carpal tunnel surgery of right wrist Hx of hand surgery Family History Mother No problems noted. Father No problems noted. Social History Housing: Apartment Patient Tobacco Use Status: Never used Tobacco e-Cigarette/Vaping Use: Never Used Second Hand Smoke Exposure: No service: No Current occupational status: retired Cognitive needs: No Hearing needs: No Vision needs: No Review of Systems Const Denies weight gain and Denies weight loss ENT Reports no additional complaints, Denies dysphagia and Denies odynophagia Card Reports no additional complaints Resp Reports no additional complaints GI Reports abdominal pain (Occasional ), Denies belching, Denies melena, Reports bloating, Denies change in bowel habits, Reports constipation, Denies dysphagia, Denies excessive flatus, Denies dyspepsia, Denies heartburn, Denies diarrhea, Denies loose stools, Denies nausea, Denies odynophagia and Denies vomiting Reports no additional complaints Musc Reports no additional complaints Neuro Reports no additional complaints Psych Reports no additional complaints Endo Reports no additional complaints Physical Exam Vital Signs: Last Vital Signs Pulse 86 01/19/25 13:31 BP 126/68 01/19/25 13:31 Pulse Ox 98 01/19/25 13:31 Oxygen Delivery Method Room Air 01/19/25 13:31 BMI result Body Mass Index 27.6 Const General: healthy appearing, no acute distress and well developed Nutritional Appearance: well nourished Orientation/consciousness: patient oriented x3 Resp Effort & Inspection: normal respiratory effort, able to speak in complete sentences, no tracheal deviation and symmetric chest movement Auscultation: clear to auscultation bilaterally Cardio Rate: regular rate GI Inspection: Yes normal to inspection and No distended Palpation (GI): Soft to palpation, not firm, nontender and No hepatosplenomegaly present Auscultation: normal bowel sounds General: Yes no CVA tenderness Back/Spine/Pelvis Back: no CVA tenderness Skin General skin exam: elasticity normal, turgor normal and dry skin Neuro General: patient oriented x3 Psych Appearance: grossly normal Mental Status: mental status grossly normal Assessment & Plan Assessment & Plan (1) Chronic idiopathic constipation: Code(s): K59.04 - Chronic idiopathic constipation (2) Left upper quadrant abdominal pain: Code(s): R10.12 - Left upper quadrant pain (3) GERD (gastroesophageal reflux disease): Code(s): K21.9 - Gastro-esophageal reflux disease without esophagitis Qualifiers: Esophagitis presence: esophagitis presence not specified Qualified Code(s): K21.9 - Gastro-esophageal reflux disease without esophagitis (4) Pires's esophagus determined by biopsy: Code(s): K22.70 - Pires's esophagus without dysplasia Category: Medical Plan Patient was encouraged to take Trulance daily. Patient can also take Dulcolax in the afternoon if she is unable to have a bowel movement. Increase fluid intake and activity to promote better bowel motility. Patient can take omeprazole daily. Diagnosed with Barretts. Patient will need to have repeated endoscopy in 3 is due to Barretts. However if patient will continues to be symptomatic so we can repeat sooner. Patient was encouraged to avoid dietary triggers and late night snacking. Staying upright for minimum 3 hours after meals discussed with patient. Patient will follow-up in 3 months, sooner on as needed basis. She is agreeable to this plan and verbalizes understanding of instructions. She was given the opportunity to ask questions and all questions answered. Thank you for allowing me to participate in her care Medications: Refilled plecanatide (Trulance) 3 mg PO DAILY 30 tabs 3RF K59.09 - Other constipation omeprazole 40 mg PO DAILY 90 caps 3RF Coding Level of Care Code Est Pt Level 4 (70225) Complex EM visit Add On G2211 Diagnoses Chronic idiopathic constipation K59.04 Left upper quadrant abdominal pain R10.12 Gastroesophageal reflux disease, unspecified whether esophagitis present K21.9 Esophagitis presence: esophagitis presence not specified Pires's esophagus determined by biopsy K22.70 Time Spent (min) 35 Comment 25 minutes spent with patient and additional 10 minutes spent reviewing her records
[2025-01-19 13:31] VITALS: BP 126/68; PULSE 86; O2SAT 98; BMI 27.6
--- OUTSIDE RECORDS SUMMARY | 2025-01-19 13:47 | XMS_ITS | Clinical Summary ---
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 3 Active aspirin 81 mg EC tablet TAKE 1 TABLET BY MOUTH EVERY DAY 3 Active atorvastatin (LIPITOR) 20 mg tablet TAKE 1 TABLET BY MOUTH EVERY DAY 3 Active blood-glucose meter (ONETOUCH VERIO IQ [facility]) Test blood sugar 2 times daily DX:E11.49 PLEASE SEND ONE TOUCH VERIO 1 Active cetirizine (ZyrTEC) 10 mg tablet TAKE 1 TABLET BY MOUTH EVERY DAY 2 Active apixaban (Eliquis) 5 mg tablet TAKE 1 TABLET BY MOUTH TWICE A DAY 3 Active fluticasone propionate (FLONASE) 50 mcg/actuation nasal spray SPRAY 2 SPRAYS BY NASAL ROUTE DAILY 3 Active glipiZIDE (GLUCOTROL XL) 10 mg 24 hr tablet TAKE 2 TABLETS BY MOUTH EVERY DAY 3 Active empagliflozin (Jardiance) 25 mg tablet TAKE 1 TABLET BY MOUTH EVERY DAY FOR 90 DAYS 2 Active metFORMIN (GLUCOPHAGE) 1,000 mg tablet TAKE 1 TABLET BY MOUTH TWICE A DAY 3 Active metoprolol succinate (TOPROL-XL) 50 mg 24 hr tablet TAKE 1 TABLET BY MOUTH EVERY DAY 3 Active mirabegron (MYRBETRIQ) 25 mg 24 hr tablet Take 1 Tablet by mouth daily. 2 Active polyethylene glycol (Miralax) 17 gram/dose oral powder Empty entire bottle into 64 ounces of any clear liquid: such as Gatorade or Crystal light or any clear lquid. Starting at 4 PM, drink 8 oz glass of the prep every 20 minutes until the bottle is completely emptied. 3 Active omeprazole (PriLOSEC) [address] capsule TAKE 1 CAPSULE BY MOUTH EVERY DAY 3 Active DreamforgeTouch UltraSoft Lancets 1 Device by Does not apply route 2 times daily. DX E11.49 1 Active blood sugar diagnostic (Pint Please Verio test strips) test strip USE TO TEST BLOOD SUGAR TWICE A DAY 3 Active semaglutide (Ozempic) 0.25 mg or 0.5 mg(2 mg/1.5 mL) injection pen INJECT 0.25 MG SUBCUTANEOUSLY ONCE WEEKLY FOR 30 DAYS 3 Active psyllium (Konsyl Sugar-Free) 6 gram packet Take 1 Dose by mouth 2 times daily (before meals). Mix 1 heaping tablespoon in 2 ounces of unsweetened applesauce and consume 30 minutes before lunch and dinner 2 Active senna (SENOKOT) 8.6 mg tablet Take 1 Tablet by mouth at bedtime. 3 Active inhalat.spacin g dev,large mask spacer SPACER DEVICE-ADULT Use with proair 2 Active triamcinolone (KENALOG) 0.1 % cream APPLY TO AFFECTED AREA TWICE A DAY NEEDED 2 Active cyanocobalamin (VITAMIN B-12) 500 mcg tablet TAKE 1 TABLET BY MOUTH EVERY DAY 3 Active Active Problems Problem Noted Date Diagnosed Date GERD (gastroesophageal reflux disease) 4 OAB (overactive bladder) 08/18/2024 Rosacea 08/18/2024 Overview (08/18/2024): metrogel topical Type 2 diabetes mellitus wit h cataract ([facility] V24, [facility] V28) 08/18/2024 Urinary incontinence 06/12/2021 Paroxysmal atrial fibrillation ([facility] V24, [facility] V28) 02/19/2020 Lesion of breast 08/26/2018 Allergic rhinitis 04/20/2018 Asthma 04/20/2018 Diverticulosis 04/20/2018 Hyperlipidemia 04/20/2018 Type 2 diabetes mellitus wit h neurological manifestations ([facility] V24, [facility] V28) 04/20/2018 Anxiety 04/29/2017 Cataract 02/26/2017 Overview (08/18/2024): S/p surgery Carpal tunnel syndrome 08/29/2014 Immunizations Name Administration Dates Next Due Influenza trivalent, 0.5mL (Fluad) 65yo and olde r 06/26/2021 Influenza, Unspecified 07/12/2020 Moderna SARS-CoV-2 COVID-19, mRNA, LNP-S, preservative free 08/30/2022 PPD Test 06/27/2002 Pfizer SARS-CoV-2 COVID-19, mRNA, LNP-S, preservative free 01/13/2021,12/22/2020 Pneumococcal polysaccharide 23 valent (Pneumovax 23) 2yo and older 10/09/2020 Td Tetanus diptheria (Tdvax) 7yo and older 09/26 Surgical History Surgery Date Site/Laterality Comments CATARACT EXTRACTION 2013 Bilateral PROCEDURE: HISTORICAL CATARACT REMOVAL; COMMENT: [place] cataract Dr. Winn CARPAL TUNNEL RELEASE Right PROCEDURE: HISTORICAL CARPAL TUNNEL REL; COMMENT: done in -2014 Medical History Medical History Date Comments Asthma DX:Asthma GERD (gastroesophageal reflu x disease) DX:GERD (gastroesophageal re flux disease) Anxiety DX:Anxiety Diverticulosis DX:Diverticulosi s Hyperlipidemia DX:Hyperlipidemi a Rosacea DX:Rosacea; COMM ENT: metrogel topical Type 2 diabetes mellitus wit h cataract ([facility] V24, [facility] V28) DX:Type 2 diabetes mellitus with cataract (HCC) Allergic rhinitis 04/20/2018 DX:Allergic rh initis Carpal tunnel syndrome 08/29/2014 DX:Carpal tunnel syndrome Cataract 02/26/2017 DX:Cataract; COM MENT: S/p surgery History of herpes zoster 09/21/2016 DX:Hist ory of herpes zoster History of pancreatitis 03/25/2016 DX:Histo ry of pancreatitis Type 2 diabetes mellitus wit h neurological manifestations ([facility]/HCC V24, [facility]/HCC V28) 04/20/2018 DX:Type 2 diabetes mellitus with neurological manifestations ([facility]) H/O bone density study 02/17/2019 DX:H/O hilario ne density study; COMMENT: no evidense of osteoporosis or osteopenia OAB (overactive bladder) DX:OAB (overactive bladder) Diverticulosis 2020 DX:Diverticulosi s; COMMENT: noted on routine colonoscopy Family History Medical History Relation Name Comments Breast cancer Aunt father side paternal side No Known Problems Brother Dementia Father 0 Diabetes Father Hyperlipidemia Father Hypertension Father Alzheimer's disease Mother 07/2020 Diabetes Mother Hyperlipidemia Mother Hypertension Mother Other: Chronic Kidney Disease Mother Relation Name Status Comments Aunt father side Brother Alive Father Mother (Age 86) Social History Tobacco Use Types Packs/Day Years Used Date Smoking Tobacco: Never Smokeless Tobacco: Never Alcohol Use Standard Drinks/Week Comments Yes 0 (1 standard drink = 0.6 oz pur e alcohol) Comments No Sex and Gender Information Value Date Recorded Sex Assigned at Not on file Legal Sex Female 10:11 AM EST Gender Identity Not on file Sexual Orientation Not on file 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 Industry 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 Start Date Job End Date 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 Not on file Not on file No t on file Obstetrics History Para Term AB IAB SAB Ectopic Multiple Livin g Live Births 3 3 3 3 3 Date Outcome GA Total Labor Labor/2nd/3rd Weight Sex Type Anes PTL Cely A1 A5 Name Clin Term F Vag-S pont Living Term M Vag-S pont Living Term M Vag-S pont Living Last Filed Vital Signs Vital Sign Reading Time Taken Comments Blood Pressure 135/71 09/21/2024 1:18 PM EST Pulse 101 01/06/2023 2:44 PM EDT Temperature - - Respiratory Rate - - Oxygen Saturation - - Inhaled Oxygen Concentration - - Weight 68.5 kg (151 lb) 09/21/2024 1:18 PM EST Height 157.5 cm (5' 2 ) 09/21/2024 1:18 PM EST Body Mass Index 27.62 09/21/2024 1:18 PM EST Plan of Treatment Health Maintenance Due Date Last Done Comments Diabetes: Annual Foot Exam 1966 Diabetes: Annual Retina Eye Exam 1966 DTaP,Tdap,and Td Vaccines (2 - Td or Tdap) 09/26/2011 09/26/2001 RSV Immunization Adult Patients (1 - Risk 60-74 years 1-dose series) 2016 Zoster Vaccines (2 of 2) 10/06/2019 08/11/2019 Depression Screening 09/19/2022 Falls Risk Assessment 09/19/2022 Social Influencers of Health Screening 09/19/2022 Cervical Cancer Screening: HPV 01/20/2023 01/20/2018 Diabetes: Blood Sugar Control Test (HGBA1C) 04/21/2023 10/22/2022 Diabetes: Annual Urine Albumin-Creatinine Ratio (uACR) 10/22/2023 10/22/2022 Diabetes: Annual GFR (Glomerular Filtration Rate) 10/22/2023 10/22/2022 Breast Cancer Screening 02/10/2024 02/10/20, 12/24/2020, 09/04/2019, Additional history exists COVID-19 Vaccine ( season) 2024 08/30/2022, 04/15/2022, 09/01/2021, Additional history exists Cholesterol Screening (Lipid Panel) 10/22/2027 10/22/2022 Colorectal Cancer Screening: Colonoscopy 01/17/2031 01/17/2021 Osteoporosis Screening (Bone Density Screening) 09/11/2031 09/11/2021, 02/17/2019 Hepatitis C Screening Completed 01/20/2018 Pneumococcal Vaccine: 50+ Years Completed 10/21/2023, 10/09/2020 Influenza Vaccine Completed 07/12/2024, , 06/18/2022, Additional history exists HIB Vaccines Aged Out No longer eligi ble based on patient's age to complete this topic HPV Vaccines Aged Out No longer eligi ble based on patient's age to complete this topic Hepatitis A Vaccines Aged Out No long er eligible based on patient's age to complete this topic Hepatitis B Vaccines Aged Out No long er eligible based on patient's age to complete this topic IPV Vaccines Aged Out No longer eligi ble based on patient's age to complete this topic MMR Vaccines Aged Out No longer eligi ble based on patient's age to complete this topic Meningococcal ACWY Vaccine Aged Out N o longer eligible based on patient's age to complete this topic Meningococcal B Vaccine Aged Out No l onger eligible based on patient's age to complete this topic RSV Immunization Patients Under 20 months Aged Out No longer eligible based on patient's age to complete this topic Varicella Vaccines Aged Out No longer eligible based on patient's age to complete this topic Procedures Procedure Name Priority Date/Time Associated Diagnosis Comments URINE ALBUMIN CREATININE RATIO Routine 10/22/2022 ANNUAL BMP BLOOD TEST Routine 10/22/2022 HEMOGLOBIN A1C Routine 10/22/2022 LIPID PANEL Routine 10/22/2022 [facility] SCREENING DIGITAL Routine 02/09/2022 1:15 PM EDT Encounter for screening mammogram for malignant neoplasm of breast [facility] DEXA AXIAL SKELETON Routine 09/11/2021 10:56 AM EST Encounter for screening for osteoporosis COLONOSCOPY Routine 01/17/2021 HPV Routine 01/20/2018 HEPATITIS C SCREENING Routine 01/20/2018 from Last 3 Months or Most Recently Relevant to Health Maintenance Results * Urine Albumin Creatinine Ratio (10/22/2022) Urine Albumin Creatinine Ratio Abstracted us Historical Provider MD HEALTH MAINTENANCE Final Result * Annual BMP Blood Test (10/22/2022) Annual BMP Blood Test Abstracted us Historical Provider HEALTH MAINTENANCE Final Result * (ABNORMAL) Hemoglobin A1c (10/22/2022) Hemoglobin A1C 9.3(A) <=6.5 % Blood Venous blood specimen / Unknown Historical Provider MD LAB BLOOD ORDERABLES Ayaka l Result * (ABNORMAL) Lipid panel (10/22/2022) LDL/HDL Ratio 4 0 - 4 Triglycerides 233(A) 0 - 150 mg/dL Cholesterol 152 0 - 200 mg/dL HDL 37(A) >=40 mg/dL LDL Cholesterol 69 0 - 100 mg/dL Blood Venous blood specimen / Unknown Historical Provider MD LAB BLOOD ORDERABLES Ayaka l Result * LC SCREENING DIGITAL (02/09/2022 1:15 PM EDT) Anatomical Region Laterality Modality Mammography 02/09/2022 11:1 5 AM EDT Narrative 02/09/2022 1:15 PM EDT [facility] Diagnostic Imaging Department [address] [place] [address] Patient: ??CLOTILDE VIDALES ?/Age/Sex: 1955 - 66 - F Unit#: ??[id number] ? Location/Status: ??SPDIMAM/REG CLI ? Mnemonic/Ordering Site: ??DIGSC/SPMAM Ordering Physician: ??AMELIA BEACH PA-C Lc Screening Digital - 02/09/22 - 1203 INDICATION: SCREENING COMPARISON: [facility] mammograms dating back to ?? 02/01/2014 TECHNIQUE: CC and MLO views of the breasts were obtained, using full field digital mammography with 3D tomosynthesis views in the MLO projection. Computer aided detection with the Adform 7.2-H was employed. FINDINGS: The breasts contain scattered fibroglandular tissues. Metallic tissue marker is visualized on the left. ??Benign-appearing breast and vascular type calcification visualized bilaterally. No suspicious masses, suspicious microcalcifications, or areas of architectural distortion are identified. ??There are no secondary signs of breast malignancy. IMPRESSION: ??No specific mammographic evidence of breast malignancy. Lack of an imaging correlate should not deter or delay biopsy of a clinically significant palpable finding. BI-RADS ??- Category 2 - Benign finding 3342F, 7025F Annual screening mammography is recommended. Patient entered into a reminder system with a target date for the next mammogram. ([id number] / [id number]) , ??[id number] Dictating Physician: ??MANISH ZARAGOZA MD Electronically Signed by: ??MANISH ZARAGOZA MD Dic Date/Time: ??02/09/22 1310 Sign date/Time: ??02/09/22 1315 Procedure Note Manish Zaragoza MD - 09/30/2022 [facility] Diagnostic Imaging Department [address] [place] [address] Patient: BRANDICLOTILDE /Age/Sex: 1955 - 66 - F Unit#: [id number] [facility]Ordering [facility] Ordering Physician: AMELIA BEACH PA-C Lc Screening Digital - 02/09/22 - 2133 INDICATION: SCREENING COMPARISON: [facility] mammograms dating back to 02/01/2014 TECHNIQUE: CC and MLO views of the breasts were obtained, using full field digital mammography with 3D tomosynthesis views in the MLO projection. Computer aided detection with the Adform 7.2-H was employed. FINDINGS: The breasts contain scattered fibroglandular tissues. Metallic tissue marker is visualized on the left. Benign-appearing breastand vascular type calcification visualized bilaterally. No suspicious masses, suspicious microcalcifications, or areas ofarchitectural distortion are identified. There are no secondary signs of breastmalignancy. IMPRESSION: No specific mammographic evidence of breast malignancy. Lack of an imaging correlate should not deter or delay biopsy of aclinically significant palpable finding. BI-RADS - Category 2 - Benign finding 3342F, 7025F Annual screening mammography is recommended. Patient entered into a reminder system with a target date for the next mammogram. [id number] / [id number]) , [id number] Dictating Physician: MANISH ZARAGOZA MD Electronically Signed by: MANISH ZARAGOZA MD Dic Date/Time: 02/09/22 1310 Sign date/Time: 02/09/22 1310 us Amelia FARMER IMG BI PROCEDURES Final Result * LC DEXA AXIAL SKELETON (09/11/2021 10:56 AM EST) Anatomical Region Laterality Modality Mammography 09/11/2021 10:3 1 AM EST Narrative 09/11/2021 10:56 AM EST [facility] Diagnostic Imaging Department [address] [place] [address] Patient: ??CLOTILDE VIDALES ?/Age/Sex: 1955 - 66 - F Unit#: ??[id number] ? Location/Status: ??SPDIMAM/REG CLI ? Mnemonic/Ordering Site: ??MAMDEXAAX/SPMAM Ordering Physician: ??ANDREA CERDA CNM Lc Dexa Axial Skeleton - 09/11/21 - 1050 HISTORY: ??The patient is a 66-year-old postmenopausal female on chronic glucocorticoid therapy, with clinical concern for metabolic bone disease. FINDINGS: ??Dual energy x-ray absorptiometry of the lumbar spine and femurs is performed. The mean bone mineral density at L1-L4 is 1.231 gm/cm2 which is 104% of that of young normals and 118% of that of age matched controls. This yields a T-score of 0.4 and a Z-score of 1.6 and there is therefore no evidence of osteoporosis or osteopenia here. The mean bone mineral density of the femurs bilaterally is 1.098 gm/cm2 which is 109% of that of young normals and 123% of that of age matched controls. ??This yields a T-score of 0.7 and a Z-score of 1.6 and there is therefore no evidence of osteoporosis or osteopenia here. IMPRESSION: 1. There is no evidence of osteoporosis or osteopenia. ??There has been an increase of 1.1% in bone mineral density in the lumbar spine since the prior examination of 02/17/2019. ??There has been a decrease of 4.8% in bone mineral density in the right femur and an increase of 0.3% in bone mineral density in the left femur. 2. FRAX analysis yields a 10-year probability of major osteoporotic fracture of 6.3% and a 10-year probability of hip fracture of 0.4%. Code 94883 Dictating Physician: ??BRENNA TSE MD Electronically Signed by: ??BRENNA TSE MD Dic Date/Time: ??09/11/21 105 Sign date/Time: ??09/11/21 105 Procedure Note Brenna Tse MD - 09/30/2022 [facility] Diagnostic Imaging Department [address] [place] [address] Patient: KALYAN VIDALESJeremiah Llanes./Age/Sex: 1955 - 66 - F Unit#: [id number] [facility] Ordering Physician: ANDREA CERDA CNM Lc Dexa Axial Skeleton - 09/11/211049 HISTORY: The patient is a 66-year-old postmenopausal female on chronic glucocorticoid therapy, with clinical concern for metabolic bonedisease. FINDINGS: Dual energy x-ray absorptiometry of the lumbar spine and femursis performed. The mean bone mineral density at L1-L4 is 1.231 gm/cm2 which is104% of that of young normals and 118% of that of age matched controls. Thisyields a T-score of 0.4 and a Z-score of 1.6 and there is therefore no evidenceof osteoporosis or osteopenia here. The mean bone mineral density of the femurs bilaterally is 1.098 gm/kl2ixyyr is 109% of that of young normals and 123% of that of age matched controls.This yields a T-score of 0.7 and a Z-score of 1.6 and there is therefore noevidence of osteoporosis or osteopenia here. IMPRESSION: 1. There is no evidence of osteoporosis or osteopenia. There has beenan increase of 1.1% in bone mineral density in the lumbar spine since theprior examination of 02/17/2019. There has been a decrease of 4.8% in bonemineral density in the right femur and an increase of 0.3% in bone mineral densityin the left femur. 2. FRAX analysis yields a 10-year probability of major osteoporoticfracture of 6.3% and a 10-year probability of hip fracture of 0.4%. Code 26771 Dictating Physician: BRENNA TSE MD Electronically Signed by: BRENNA TSE MD Dic Date/Time: 09/11/21 1054 Sign date/Time: 09/11/21 1056 Andrea Cerda CN IM BI PROCEDURES Final Resul t * Colonoscopy (01/17/2021) [facility] Colonoscopy Abstracted, no interpretation Anatomical Region Laterality Modality Other Result [facility] Provider HEALTH MAINTENANCE Final Result * Cervical Cancer Screening: HPV (01/20/2018) [facility] Cervical Cancer Screening: HPV Abstracted, Negative [facility] Provider HEALTH MAINTENANCE Final Result * Hepatitis C Screening (01/20/2018) [facility] Hepatitis C Screening Abstracted [facility] Provider HEALTH MAINTENANCE Final Result from Last 3 Months or Most Recently Relevant to Health Maintenance Insurance [facility] Member Subscriber Plan / Payer (Ef fective 2023-Present) Name:Clotilde Vidales Relation to Subscriber:Self Name:Clotilde Vidales Payer ID:[id number] Group ID:[id number] Type:Not on file Address: [address] [place] [address] MEDICAID - [place] Care Teams 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
== END 2025-01-19 14:04 | disposition home or self-care (01) ==
PROVIDERS: PCP Nurse Practitioner Family; Visit Provider Nurse Practitioner Family
DX: K59.04 Chronic idiopathic constipation (principal); R10.12 Left upper quadrant pain; K21.9 Gastro-esophageal reflux disease without esophagitis; K22.70 Barrett's esophagus without dysplasia
CPT/HCPCS: 99214; G2211

== ENCOUNTER → 2025-01-19 13:26 | Outpatient (BNVA) | payer MEDICARE, SELFPAY | PROVIDERS: PCP Nurse Practitioner Family; Visit Provider Nurse Practitioner Family | DX: K59.09 Other constipation (principal); K22.70 Barrett's esophagus without dysplasia; K21.9 Gastro-esophageal reflux disease without esophagitis; R10.12 Left upper quadrant pain; R10.11 Right upper quadrant pain | CPT/HCPCS: 99212 ==

== ENCOUNTER 2025-02-05 12:48 | Outpatient (AMB) | payer MEDICARE, SELFPAY ==
--- NOTE | 2025-02-05 13:07 | MHC.PC.OV ---
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- albuterol sulfate 90 mcg/actuation 2 puffs inhalation Q4H PRN apixaban (Eliquis) 5 mg PO BID 90 days atorvastatin 20 mg PO DAILY bisacodyl (Dulcolax (bisacodyl)) 10 mg (2 x 5 mg) PO BEDTIME cetirizine 10 mg PO DAILY cyanocobalamin (vitamin B-12) 500 mcg PO Q OTHER DAY docusate sodium 100 mg PO BID empagliflozin (Jardiance) 25 mg PO DAILY ferrous sulfate 325 mg PO DAILY fluticasone propionate 50 mcg/actuation 50 sprays intranasal DAILY glipizide ER 20 mg (2 x 10 mg) PO DAILY incontinence pad, liner, disp (Prevail Panty Liner pads) As directed lisinopril 2.5 mg PO DAILY metformin 1,000 mg PO BID metoprolol succinate ER 50 mg PO DAILY 90 days omeprazole 40 mg PO DAILY plecanatide (Trulance) 3 mg PO DAILY semaglutide (Ozempic) 2 mg (0.75 mL) subcut QWEEK [skin care wipes As directed] vibegron (Gemtesa) 75 mg PO DAILY Tobacco use date assessed: 02/05/25 Fall risk assessment: No Falls in past year Last assessed Fall Risk: 02/05/25 Dental Screening Dental Screen Date: 02/05/25 Did you have a dental visit in the last 12 months?: Yes Did you have a dental problem in the last 6 months where you did not have access to dental care?: No Was dental information given to patient?: Patient has dentist HPI 4 month follow up - see comments HPI Details Chief Complaint Follow-up for diabetes management History of Present Illness The patient is a 69-year-old female presenting with a follow-up visit for her Type 2 Diabetes Mellitus management. She reports stable management of her diabetes with no symptoms of polyuria, polydipsia, or neuropathy. Her recent A1c level is 6.3, indicating good glycemic control. The patient also mentioned her ongoing care for Atrial Fibrillation and denied experiencing new symptoms such as chest pain or shortness of breath. Social History Health Maintenance - Encouraged to obtain fasting laboratory tests in the near future - An eye exam is due and scheduled for next month Review of Systems - Endocrine: Denies polyuria, polydipsia, neuropathy - Cardiovascular: Denies chest pain, shortness of breath Physical Exam General: Cooperative, healthy appearing, comfortable, no acute distress and well developed Orientation: Patient oriented x3 Limitations: No limitations Head: Normal to inspection Ears: Hearing grossly normal bilaterally Nose: Normal external nose present Face and sinus: Normal facial exam Eyes: Appearance normal, both eyes and all related structures Neck: Normal visual inspection and Yes full ROM Respiratory: Normal respiratory effort and able to speak in complete sentences. Clear to auscultation bilaterally Cardiovascular: Regular rate and rhythm. Normal S1 and S2, systolic murmur noted GI: Normal to inspection. Soft to palpation and nontender Skin: No rashes or lesions noted Neuro: Patient oriented x3 Extremities: Normal to inspection, feet intact bilaterally, positive sensation with use of monofilament Results - Labs: Hemoglobin A1c was 6.3 Plan 1. 3. Fasting laboratory tests have been recommended soon to monitor blood sugar levels closely. For her Atrial Fibrillation, she remains under cardiology care with no new symptoms reported. An upcoming eye exam has been scheduled to assess diabetic retinopathy as part of ongoing health maintenance.: Discussion Notes During this visit, I emphasized the importance of maintaining her current diabetes management strategy, given the A1c of 6.3. We discussed the significance of fasting laboratory tests to ensure continued stable control of her diabetes. For her Atrial Fibrillation, the patient understands that no changes are currently warranted, as she remains symptom-free. I informed her about the need for routine diabetic eye examinations, and her appointment next month will serve to monitor potential retinopathy. 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 Patient Instructions - Continue current diabetes medications and lifestyle modifications - Schedule and complete fasting lab tests soon - Attend scheduled eye exam next month - Monitor for any new symptoms or changes in health condition [facility] Medical History Pires's esophagus determined by biopsy Barretts esophagus Diabetes Murmur Anemia Paroxysmal atrial fibrillation Edema Surgical History H/O colonoscopy History of carpal tunnel surgery of right wrist Hx of hand surgery Family History Mother No problems noted. Father No problems noted. Social History Housing: Apartment Patient Tobacco Use Status: Never used Tobacco e-Cigarette/Vaping Use: Never Used Second Hand Smoke Exposure: No service: No Current occupational status: retired Cognitive needs: No Hearing needs: No Vision needs: No Questionnaire PHQ-9 Over the last 2 weeks, how often have you been bothered by any of the following problems? 1. Little interest or pleasure in doing things: not at all 2. Feeling down, depressed, or hopeless: not at all 3. Trouble falling or staying asleep, or sleeping too much: not at all 4. Feeling tired or having little energy: not at all 5. Poor appetite or overeating: not at all 6. Feeling bad about yourself - or that you are a failure or have let yourself or your family down: not at all 7. Trouble concentrating on things, such as reading the newspaper or watching television: not at all 8. Moving or speaking so slowly that other people could have noticed. Or the opposite - being so fidgety or restless that you have been moving around a lot more than usual: not at all 9. Thoughts that you would be better off or of hurting yourself in some way: not at all Total score: 0 Depression Screening Interpretation: Negative Depression Screening Done: Yes 98302 - PHQ-9 Billing: Yes Source: Developed by Drs. Gonsalo Gomez, Jerilyn Doe, Santiago Wakefield and colleagues, with an educational yung from [employer]. Thrive Questionnaire Date Thrive assessed: 02/05/25 I am a: Patient What is your living situation today?: I have a steady place to live Within the past 12 months, did the food you bought not last and you didn't have the money to get more?: Never true Within the past 12 months, did you worry whether your food would run out before you got money to buy more?: Never true Do you have trouble paying for medicines?: No Do you have trouble getting transportation to medical appointments?: No Do you have trouble paying your heating and electricity bill?: No Do you have trouble taking care of your child, family member or friend?: No Do you have trouble with day-to-day activities such as bathing, preparing meals, shopping, managing finances, etc.?: No Are you currently unemployed and looking for a job?: No Are you interested in more education?: No Please select the resources that you would like help with: None Currently or been in a relationship where the following occur: No concerns reported THRIVE Score: 0 AUDIT C Alcohol Use Questionnaire (AUDIT-C) 1. How often do you have a drink containing alcohol?: Monthly or less 2. How many drinks containing alcohol do you have on a typical day when you are drinking?: 1 or 2 3. How often do you have six or more drinks on one occasion?: Never Total Score: 1 Score Reviewed/Action Taken: Yes TOMEKA-7 AMB Questionnaire TOMEKA-7 Date TOMEKA - 7 assessed: 02/05/25 Feeling nervous, anxious, or on edge: 0 = Not at all Not being able to stop or control worryin = Not at all Worrying too much about different things: 0 = Not at all Trouble relaxin = Not at all Being so restless that it is hard to sit still: 0 = Not at all Becoming easily annoyed or irritable: 0 = Not at all Feeling afraid as if something awful might happen: 0 = Not at all Total TOMEKA-7 score (0-4 normal; 5-9 mild; 10-14 moderate; 15-21 severe): 0 Source: Developed by Drs. Gonsalo Gomez, Jerilyn Doe, Santiago Wakefield and colleagues, with an educational yung from [employer]. TOMEKA-7 Assessment Billing TOMEKA-7 Assessment Tool: TOMEKA-7 Assessment 53396 Physical exam (Primary Care) Vital Signs: Last Vital Signs Pulse 94 02/05/25 13:08 BP 130/70 02/05/25 13:08 Pulse Ox 97 02/05/25 13:08 Oxygen Delivery Method Room Air 02/05/25 13:08 BMI result Body Mass Index 27.6 Tobacco/Smoking Status: Tobacco use Status Tobacco use date assessed 02/05/25 02/05/25 13:09 Patient Tobacco Use Status Never used Tobacco 02/05/25 13:09 e-Cigarette/Vaping Use Never Used 02/05/25 13:09 PHQ-9: PHQ-9 Score PHQ-9: Total score 0 02/05/25 13:09 Depression Screening Interpretation: Negative Thrive Assessment: Date of Thrive Assessment Date Thrive assessed 02/05/25 02/05/25 13:09 Currently or been in a relationship where the following occur: No concerns reported Coding Level of Care Code Est Pt Level 3 (14150) Diagnoses Paroxysmal atrial fibrillation I48.0 Systolic murmur R01.1 Diabetes mellitus E11.9 Additional Codes TOMEKA-7 Assessment Billing - TOMEKA-7 Assessment Tool: TOMEKA-7 Assessment 44841 ([id number]) PHQ-9 - 71764 - PHQ-9 Billing: Yes ([id number]) Assessment & Plan Assessment & Plan (1) Paroxysmal atrial fibrillation: Code(s): I48.0 - Paroxysmal atrial fibrillation Category: Medical (2) Systolic murmur: Code(s): R01.1 - Cardiac murmur, unspecified Category: Medical (3) Diabetes mellitus: Code(s): E11.9 - Type 2 diabetes mellitus without complications Category: Medical Plan . Orders: Orders AMB Hemoglobin A1c Today Z13.9 - Encounter for screening, unspecified
[2025-02-05 13:08] VITALS: BP 130/70; PULSE 94; O2SAT 97; BMI 27.6
--- OUTSIDE RECORDS SUMMARY | 2025-02-05 15:10 | XMS_ITS | Clinical Summary ---
Author Organization [facility] Address [address] [place] [address] Phone Care Team Providers Care Ccna Name Role Phone [facility] Primary [facility] [...] Active blood-glucose meter (ONETOUCH VERIO IQ METER [facility]) Test blood sugar 2 times daily DX:E11.49 [...] CAPSULE BY MOUTH EVERY DAY 3 Active [employer] TechnologyTouch UltraSoft Lancets 1 Device by Does not apply route 2 times daily. DX E11.49 1 Active blood sugar diagnostic ([employer] Verio test strips) test strip USE TO [...] Type 2 diabetes mellitus wit h cataract ([facility] V24, [facility] V28) 08/18/2024 Urinary incontinence 06/12/2021 Paroxysmal atrial fibrillation ([facility] V24, [facility] V28) 02/19/2020 Lesion of breast 08/26/2018 Allergic rhinitis 04/20/2018 Asthma 04/20/2018 Diverticulosis 04/20/2018 Hyperlipidemia 04/20/2018 Type 2 diabetes mellitus wit h neurological manifestations ([facility] V24, [facility] V28) 04/20/2018 Anxiety 04/29/2017 Cataract 02/26/2017 Overview [...] Type 2 diabetes mellitus wit h cataract ([facility] V24, [facility] V28) DX:Type 2 diabetes mellitus with cataract (HCC) Allergic rhinitis 04/20/2018 DX:Allergic rh initis Carpal tunnel syndrome 08/29/2014 DX:Carpal tunnel syndrome Cataract 02/26/2017 DX:Cataract; COM MENT: S/p surgery History of herpes zoster 09/21/2016 DX:Hist ory of herpes zoster History of pancreatitis 03/25/2016 DX:Histo ry of pancreatitis Type 2 diabetes mellitus wit h neurological manifestations ([facility] V24, [facility] V28) 04/20/2018 DX:Type 2 diabetes mellitus with neurological manifestations ([facility]) H/O bone density study 02/17/2019 DX:H/O hilario [...] Date 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 Location/Status: ??SPDIMAM/REG CLI ? Mnemonic/Ordering Site: ??DIGSC/SPMAM Ordering Physician: ??AMELIA BEACH PA-C Lc Screening Digital - 02/09/22 - 1203 INDICATION: SCREENING COMPARISON: [facility] mammograms dating back to ?? 02/01/2014 TECHNIQUE: CC and MLO views of the breasts were obtained, using full field digital mammography with 3D tomosynthesis views in the MLO projection. Computer aided detection with the [employer] 7.2-H was employed. FINDINGS: The breasts contain [...] date for the next mammogram. (G0202 / 33230) , ??[id number] Dictating Physician: ??MANISH ZARAGOZA MD Electronically Signed by: ??MANISH ZARAGOZA MD Dic Date/Time: ??02/09/22 1310 Sign date/Time: ??02/09/22 1315 Procedure Note Manish Zaragoza MD - 09/30/2022 [facility] Diagnostic Imaging Department [address] [place] [address] Patient: BRANDICLOTILDE /Age/Sex: 1955 - 66 - F Unit#: [id number] [facility]ing [facility] Ordering Physician: AMELIA BEACH PA-C Lc Screening Digital - 02/09/22 - 1833 INDICATION: SCREENING COMPARISON: [facility] mammograms dating back to 02/01/2014 TECHNIQUE: CC and MLO views of the breasts were obtained, using full field digital mammography with 3D tomosynthesis views in the MLO projection. Computer aided detection with the RFinity 7.2-H was employed. FINDINGS: The breasts contain [...] a target date for the next mammogram. G0874 / [id number]) , [id number] Dictating Physician: MANISH ZARAGOZA MD Electronically Signed by: MANISH ZARAGOZA MD Dic Date/Time: 02/09/22 1310 Sign date/Time: 02/09/22 1312 us Amelia FARMER IMG BI PROCEDURES Final Result * LC DEXA AXIAL SKELETON (09/11/2021 10:56 AM EST) Anatomical Region Laterality Modality Mammography 09/11/2021 10:3 1 AM EST Narrative 09/11/2021 10:56 AM EST [facility] Diagnostic Imaging Department [address] [place] [address] Patient: ??CLOTILDE VIDALES ?/Age/Sex: 1955 - 66 - F Unit#: ??[id number] ? Location/Status: ??SPDIMAM/REG CLI ? Mnemonic/Ordering Site: [...] probability of hip fracture of 0.4%. Code 92307 Dictating Physician: ??BRENNA TSE MD Electronically Signed by: ??BRENNA TSE MD Dic Date/Time: ??09/11/21 105 Sign date/Time: ??09/11/21 105 Procedure Note Brenna Tse MD - 09/30/2022 [facility] Diagnostic Imaging Department [address] [place] [address] Patient: KALYAN VIDALESJeremiah Llanes./Age/Sex: 1955 - 66 - F Unit#: [id number] [facility] Ordering Physician: ANDREA CERDA CNM Lc Dexa [...] density of the femurs bilaterally is 1.098 gm/yo2zierw is 109% of that of young normals [...] probability of hip fracture of 0.4%. Code 26466 Dictating Physician: BRENNA TSE MD Electronically Signed by: BRENNA TSE MD Dic Date/Time: 09/11/21 1054 Sign date/Time: 09/11/21 1056 Andrea Cerda CN IM BI PROCEDURES Final Resul t * Colonoscopy (01/17/2021) [facility] Colonoscopy Abstracted, no interpretation Anatomical Region Laterality Modality Other Result [facility] Provider HEALTH MAINTENANCE Final Result * Cervical Cancer Screening: HPV (01/20/2018) [facility] Cervical Cancer Screening: HPV Abstracted, Negative [facility] Provider HEALTH MAINTENANCE Final Result * Hepatitis C Screening (01/20/2018) [facility] Hepatitis C Screening Abstracted [facility] Provider HEALTH MAINTENANCE Final Result from Last 3 Months or Most Recently Relevant to Health Maintenance Insurance [facility] Member Subscriber Plan / Payer (Ef fective 2023-Present) Name:Clotilde Vidales Relation to Subscriber:Self Name:Clotilde Vidales Payer ID:[id number] Group ID:[id number] Type:Not on file Address: [address] [place] [address] MED[place] - [place] Care Teams Ccna Relationship Specialty Start Date End Date Amelia Beach PA [address] [address] PCP - General Internal Medicine 12/25/19
== END 2025-02-05 13:38 | disposition home or self-care (01) ==
LOC: HO.HMCC 12:49
PROVIDERS: PCP Nurse Practitioner Family; Visit Provider Nurse Practitioner Family
DX: I48.0 Paroxysmal atrial fibrillation (principal); R01.1 Cardiac murmur, unspecified; E11.9 Type 2 diabetes mellitus without complications; Z13.9 Encounter for screening, unspecified

== ENCOUNTER → 2025-02-05 12:48 | Outpatient (BNVA) | payer MEDICARE, OTHER, SELFPAY | PROVIDERS: PCP Nurse Practitioner Family; Visit Provider Nurse Practitioner Family | DX: I48.0 Paroxysmal atrial fibrillation (principal); R01.1 Cardiac murmur, unspecified; E11.9 Type 2 diabetes mellitus without complications | CPT/HCPCS: 83036; 96127; 99212 ==

== ENCOUNTER 2025-03-12 08:50 | Outpatient (REF) | payer MEDICARE, MEDICAID, SELFPAY ==
[2025-03-12 09:00] LABS: MANUAL DIFF FLAG NO
[2025-03-12 09:11] LABS: Basophils Percent Auto 0.6 % (0-2); Eosinophils Absolute Auto 0.1 X10*3/uL (0.0-0.4); Eosinophils Percent Auto 1.3 % (0-4); Hematocrit 42.7 % (37.0-47.0); Hemoglobin 13.3 g/dl (12.0-16.0); Imm Gran Abs Auto 0.01 X10*3/uL (0.00-0.03); Imm Gran Pct Auto 0.2 % (0.0-0.4); Lymphocytes Absolute Auto 2.7 X10*3/uL (1.2-4.9); Lymphocytes Percent Auto 51.7 % (20-40); Mean Corpuscular HGB Conc 31.1 g/dl (31.0-35.0); Mean Corpuscular Hemoglobin 26.5 pg (27.0-33.0); Mean Corpuscular Volume 85.1 fL (80.0-98.0); Mean Platelet Volume 9.5 fL (9.4-12.3); Monocytes Absolute Auto 0.5 X10*3/uL (0.1-1.2); Neutrophils Absolute Auto 1.9 x10*3/uL (2.0-8.3); Neutrophils Percent Auto 37.2 % (45-73); Platelet Count 292 X10*3/uL (160-400); Red Blood Count 5.02 X10*6/uL (4.20-5.50); Red Cell Distribution Width 13.5 % (11.0-16.0); White Blood Count 5.2 X10*3/uL (4.8-10.8)
--- OUTSIDE RECORDS SUMMARY | 2025-03-12 09:18 | XMS_ITS | Clinical Summary ---
Author Organization [facility] Address [address] [place] [address] Phone Care Team Providers Care Event Decorator Name Role Phone [facility] Primary Care [...] Active blood-glucose meter (ONETOUCH VERIO IQ METER [facility]) Test blood sugar 2 times daily DX:E11.49 [...] CAPSULE BY MOUTH EVERY DAY 3 Active [employer]Out[employer]Touch UltraSoft Lancets 1 Device by Does not apply route 2 times daily. DX E11.49 1 Active blood sugar diagnostic ([employer] Verio test strips) test strip USE TO [...] Type 2 diabetes mellitus wit h cataract ([facility] V24, [facility] V28) 08/18/2024 Urinary incontinence 06/12/2021 Paroxysmal atrial fibrillation ([facility] V24, [facility] V28) 02/19/2020 Lesion of breast 08/26/2018 Allergic rhinitis 04/20/2018 Asthma 04/20/2018 Diverticulosis 04/20/2018 Hyperlipidemia 04/20/2018 Type 2 diabetes mellitus wit h neurological manifestations ([facility] V24, [facility] V28) 04/20/2018 Anxiety 04/29/2017 Cataract 02/26/2017 Overview [...] Type 2 diabetes mellitus wit h cataract ([facility] V24, [facility] V28) DX:Type 2 diabetes mellitus with cataract (HCC) Allergic rhinitis 04/20/2018 DX:Allergic rh initis Carpal tunnel syndrome 08/29/2014 DX:Carpal tunnel syndrome Cataract 02/26/2017 DX:Cataract; COM MENT: S/p surgery History of herpes zoster 09/21/2016 DX:Hist ory of herpes zoster History of pancreatitis 03/25/2016 DX:Histo ry of pancreatitis Type 2 diabetes mellitus wit h neurological manifestations ([facility]/HCC V24, [facility] V28) 04/20/2018 DX:Type 2 diabetes mellitus with neurological manifestations ([facility]) H/O bone density study 02/17/2019 [...] Date 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 Location/Status: ??SPDIMAM/REG CLI ? Mnemonic/Ordering Site: ??DIGSC/SPMAM Ordering Physician: ??AMELIA BEACH PA-C Lc Screening Digital - 02/09/22 - 1203 INDICATION: SCREENING COMPARISON: [facility] mammograms dating back to ?? 02/01/2014 TECHNIQUE: CC and MLO views of the breasts were obtained, using full field digital mammography with 3D tomosynthesis views in the MLO projection. Computer aided detection with the [employer] 7.2-H was employed. FINDINGS: The breasts contain [...] date for the next mammogram. (G0202 / [id number]) , ??[id number] Dictating Physician: ??MANISH ZARAGOZA MD Electronically Signed by: ??MANISH ZARAGOZA MD Dic Date/Time: ??02/09/22 1310 Sign date/Time: ??02/09/22 1315 Procedure Note Manish Zaragoza MD - 09/30/2022 [facility] Diagnostic Imaging Department [address] [place] [address] Patient: BRANDICLOTILDE /Age/Sex: 1955 - 66 - F Unit#: [id number] [facility]Ordering [facility] Ordering Physician: AMELIA BEACH PA-C Lc Screening Digital - 02/09/22 - 5403 INDICATION: SCREENING COMPARISON: [facility] mammograms dating back to 02/01/2014 TECHNIQUE: CC and MLO views of the breasts were obtained, using full field digital mammography with 3D tomosynthesis views in the MLO projection. Computer aided detection with the [employer] 7.2-H was employed. FINDINGS: The breasts contain [...] a target date for the next mammogram. G0857 / [id number]) , [id number] Dictating Physician: MANISH ZARAGOZA MD Electronically Signed by: MANISH ZARAGOZA MD Dic Date/Time: 02/09/22 1310 Sign date/Time: 02/09/22 131 us Amelia FARMER IMG BI PROCEDURES Final Result * LC DEXA AXIAL SKELETON (09/11/2021 10:56 AM EST) Anatomical Region Laterality Modality Mammography 09/11/2021 10:3 1 AM EST Narrative 09/11/2021 10:56 AM EST [facility] Diagnostic Imaging Department [address] [place] [address] Patient: ??CLOTILDE VIDALES ?/Age/Sex: 1955 - 66 - F Unit#: ??[id number] ? Location/Status: ??SPDIMAM/REG CLI ? Mnemonic/Ordering Site: ??[facility]AM Ordering Physician: ??ANDREA CERDA CNM [facility] Dexa Axial Skeleton - 09/11/21 - 1050 [...] probability of hip fracture of 0.4%. Code 01407 Dictating Physician: ??BRENNA TSE MD Electronically Signed by: ??BRENNA TSE MD Dic Date/Time: ??09/11/21 105 Sign date/Time: ??09/11/21 105 Procedure Note Brenna Tse MD - 09/30/2022 [facility] Diagnostic Imaging Department [address] [place] [address] Patient: KALYAN VIDALESJeremiah Llanes./Age/Sex: 1955 - 66 - F Unit#: [id number] [facility] Ordering Physician: ANDREA CERDA CNM Lc Dexa [...] density of the femurs bilaterally is 1.098 gm/wk3jjmtq is 109% of that of young normals [...] probability of hip fracture of 0.4%. Code 36115 Dictating Physician: BRENNA TSE MD Electronically Signed by: BRENNA TSE MD Dic Date/Time: 09/11/21 1054 Sign date/Time: 09/11/21 1056 Andrea Cerda CN IM BI PROCEDURES Final Resul t * Colonoscopy (01/17/2021) [facility] Colonoscopy Abstracted, no interpretation Anatomical Region Laterality Modality Other Result [facility] Provider HEALTH MAINTENANCE Final Result * Cervical Cancer Screening: HPV (01/20/2018) [facility] Cervical Cancer Screening: HPV Abstracted, Negative [facility] Provider HEALTH MAINTENANCE Final Result * Hepatitis C Screening (01/20/2018) [facility] Hepatitis C Screening Abstracted [facility] Provider HEALTH MAINTENANCE Final Result from Last 3 Months or Most Recently Relevant to Health Maintenance Insurance [facility] Member Subscriber Plan / Payer (Ef fective 2023-Present) Name:Clotilde Vidales Relation to Subscriber:Self Name:Clotilde Vidales Payer ID:[id number] Group ID:[id number] Type:Not on file Address: [address] [place] [address] MEDICAID - [place] Care Teams Event Decorator Relationship Specialty Start Date End Date Amelia Beach PA [address] [address] PCP - General Internal Medicine 12/25/19
[2025-03-12 09:42] LABS: Appearance Urine Clear; Color Urine Yellow; Glucose Urine UA >=1000 mg/dL (Negative); Leukocyte Esterase Urine Small (1+) (Negative); Nitrite Urine Negative (Negative); Specific Gravity - Urine >= 1.030 (1.005-1.025); UMIC TRIGGER UACC YES; Urine Blood Negative (Negative); Urine Ketones Trace mg/dL (Negative); Urine Protein Negative (Neg-Trace)
[2025-03-12 09:44] LABS: Bacteria Urine 4+ (None Seen); Hyaline Casts Urine 0-2 /LPF (0-2); RBC Urine 0-2 /HPF (0-2); UACC Culture Trigger YES; WBC Urine 21-50 /HPF (0-5)
[2025-03-12 09:50] LABS: Alanine Aminotransferase 17 U/L (0-31); Albumin Level 4.4 g/dL (3.5-5.0); Alkaline Phosphatase 94 U/L (39-117); Anion Gap 12 (12-20); Aspartate Amino Transferase 19 U/L (5-31); Bilirubin Total 0.2 mg/dL (0.0-1.0); Blood Urea Nitrogen 16 mg/dL (9-16); Calcium 9.6 mg/dL (8.4-10.2); Carbon Dioxide 27 mmol/L (22-29); Chloride 108 mmol/L (96-108); Cholesterol 146 mg/dL (<200); Estimated Glomerular Filt Rate > 60; Glucose Fasting 105 mg/dL (60-99); HDL Cholesterol 34 mg/dL (>40); LDL Cholesterol Calculated 79 mg/dL (<100); Potassium 4.4 mmol/L (3.3-5.1); Sodium 143 mmol/L (135-145); Total Protein 7.3 g/dL (6.5-8.0); Triglycerides 169 mg/dL (<150)
[2025-03-12 09:58] LABS: TSH reflex Free T4 2.58 uIU/mL (0.32-4.0)
== END 2025-03-12 08:51 | disposition home or self-care (01) ==
LOC: HO.LAB 08:50
PROVIDERS: PCP Nurse Practitioner Family; Visit Provider Nurse Practitioner Family
DX: E11.9 Type 2 diabetes mellitus without complications (principal)
CPT/HCPCS: 36415; 80053; 80061; 81001; 84443; 85025; 87086; 87088; 87186

== ENCOUNTER 2025-03-14 12:59 | Outpatient (AMB) | payer MEDICARE, MEDICAID, SELFPAY ==
--- NOTE | 2025-03-14 13:01 | A.OFFPC_ITS ---
Vital Signs 03/14/25 13:04 Height 5 ft 2 in Weight 149 lb BMI 27.2 BP 108/60 Blood Pressure Location Rt brachial Position Sitting Pulse 85 Pulse Source Pulse Oximeter Pulse Oximetry (%) 96 Oxygen Delivery Method Room Air Intake Visit Reasons: ANNUAL PE Intake Note: Pt is here for annual PE, last mammogram- 05/08/24, Colonoscopy-12/27/24, cologuard- 04/20/23. Allergies sitagliptin [From [facility]] Allergy (Intermediate, Verified 02/05/25 13:47) diarrhea/vomiting Medication List - Last Reconciled 03/14/25 by Chris Singh, [facility] albuterol sulfate 90 mcg/actuation 2 puffs inhalation Q4H PRN apixaban (Eliquis) 5 mg PO BID 90 days atorvastatin 20 mg PO DAILY bisacodyl (Dulcolax (bisacodyl)) 10 mg (2 x 5 mg) PO BEDTIME cetirizine 20 mg (2 x 10 mg) PO DAILY 90 days cyanocobalamin (vitamin B-12) 500 mcg PO Q OTHER DAY docusate sodium 100 mg PO BID empagliflozin (Jardiance) 25 mg PO DAILY ferrous sulfate 325 mg PO DAILY fluticasone propionate 50 mcg/actuation 50 sprays intranasal DAILY glipizide ER 20 mg (2 x 10 mg) PO DAILY incontinence pad, liner, disp (Prevail Panty Liner pads) As directed lisinopril 2.5 mg PO DAILY metformin 1,000 mg PO BID metoprolol succinate ER 50 mg PO DAILY 90 days omeprazole 40 mg PO DAILY plecanatide (Trulance) 3 mg PO DAILY semaglutide (Ozempic) 2 mg (0.75 mL) subcut QWEEK [skin care wipes As directed] vibegron (Gemtesa) 75 mg PO DAILY Tobacco use date assessed: 03/14/25 Last assessed Fall Risk: 03/14/25 Dental Screening Dental Screen Date: 03/14/25 HPI ANNUAL PE HPI Details History of Present Illness The patient is a 69-year-old female presenting with gastroenterology complaints of constipation and attending a routine cardiology evaluation. Her constipation is part of a recurring gastrointestinal issue she experiences regularly but is not associated with abdominal pain or diarrhea. Her cardiac health is closely monitored by a produce sorter, with a noted faint systolic murmur, although she does not experience noticeable chest pain or shortness of breath. Her diabetes management was recently addressed and is currently stable. All her routine screenings, including mammogram, colonoscopy, and endoscopy, are up to date. Labs were already performed, ? UTI, though pt is completely asymptomatic. Will await final culture and treat accordingly Health Maintenance - Mammogram: Up to date - Colonoscopy: Up to date - Endoscopy: Up to date Social History Review of Systems - Cardiovascular: Denies chest pain or s hortness of breath. - Gastrointestinal: Denies abdominal roselia n and diarrhea; reports constipation. - Respiratory: Denies shortness of breat h. denies any si or hi denies any fevers or chills Physical Exam General: Cooperative, healthy appearing, comfortable, no acute distress and well developed Orientation: Patient oriented x3 Limitations: No limitations Head: Normal to inspection Ears: Hearing grossly normal bilaterally, cerumen noted bilat, TM easily seen after ear lavage Nose: Normal external nose present Face and sinus: Normal facial exam Eyes: Appearance normal, both eyes and all related structures Neck: Normal visual inspection and Yes full ROM Respiratory: Normal respiratory effort and able to speak in complete sentences. Clear to auscultation bilaterally Cardiovascular: Regular rate and rhythm. Normal S1 and S2, faint systolic murmur noted GI: Normal to inspection. Soft to palpation and nontender Skin: No rashes or lesions noted Neuro: Patient oriented x3 Extremities: Normal to inspection, no edema noted Results Plan Management of constipation will involve dietary adjustments and monitoring with potential intervention if necessary. Cardiological evaluations will continue regularly, focusing on the systolic murmur and any subsequent symptoms. Her diabetes care remains stable and requires ongoing oversight to maintain optimal control. Routine screening adherence, such as mammograms and colonoscopies, is confirmed, ensuring well-rounded preventative care. Discussion Notes We discussed continuing the current management strategies for her constipation and agreed upon regular monitoring of her gastrointestinal symptoms. Emphasis was placed on maintaining regular cardiology evaluations, particularly observing for any new symptoms or changes in her systolic murmur. Inclusion of her stable diabetes in ongoing assessments was acknowledged. We confirmed that all her preventive screenings are up to date, supporting her overall health management. Patient Instructions - Follow a high-fiber diet and drink ple nty of water to help with constipation. - Continue seeing your produce sorter jackelin martins for monitoring your heart murmur. - Keep up with regular check-ups for clarisa betes management. - Ensure you are up to date with all [facility] screenings. [facility] Medical History Pires's esophagus determined by biopsy Barretts esophagus Diabetes Murmur Anemia Paroxysmal atrial fibrillation Edema Surgical History H/O colonoscopy History of carpal tunnel surgery of right wrist Hx of hand surgery Family History Mother No problems noted. Father No problems noted. Social History Housing: Apartment Patient Tobacco Use Status: Never used Tobacco e-Cigarette/Vaping Use: Never Used Second Hand Smoke Exposure: No service: No Current occupational status: retired Cognitive needs: No Hearing needs: No Vision needs: No Questionnaire Thrive Questionnaire Date Thrive assessed: 02/05/25 I am a: Patient What is your living situation today?: I have a steady place to live Within the past 12 months, did the food you bought not last and you didn't have the money to get more?: I choose not to answer this question Within the past 12 months, did you worry whether your food would run out before you got money to buy more?: Sometimes True Do you have trouble paying for medicines?: No Do you have trouble getting transportation to medical appointments?: No Do you have trouble paying your heating and electricity bill?: No Do you have trouble taking care of your child, family member or friend?: No Do you have trouble with day-to-day activities such as bathing, preparing meals, shopping, managing finances, etc.?: No Are you currently unemployed and looking for a job?: No Are you interested in more education?: I choose not to answer this question THRIVE Score: 1 TOMEKA-7 AMB Questionnaire TOMEKA-7 Date TOMEKA - 7 assessed: 02/05/25 Source: Developed by Drs. Gonsalo Gomez, Jerilyn Doe, Santiago Wakefield and colleagues, with an educational yung from [employer]. Physical exam (Primary Care) Vital Signs: Last Vital Signs Pulse 85 03/14/25 13:04 BP 108/60 03/14/25 13:04 Pulse Ox 96 03/14/25 13:04 Oxygen Delivery Method Room Air 03/14/25 13:04 BMI result Body Mass Index 27.2 Tobacco/Smoking Status: Tobacco use Status Tobacco use date assessed 03/14/25 03/14/25 13:05 Patient Tobacco Use Status Never used Tobacco 03/14/25 13:01 e-Cigarette/Vaping Use Never Used 03/14/25 13:01 Thrive Assessment: Date of Thrive Assessment Date Thrive assessed 02/05/25 03/14/25 13:01 Office Procedures Cerumen Removal From which ear canal was the cerumen removed: bilateral Removal: irrigation Notes: patient tolerated procedure well, no complications and ear canal clear 65896-Vwd Irrigation/Lavage Coding Level of Care Code Est Pt Prev Care >65y(53554) Diagnoses Physical exam Z00.00 Bilateral impacted cerumen H61.23 CPT Codes Office Procedure - CPT: 92662-Dit Irrigation/Lavage ([id number]) Assessment & Plan Assessment & Plan (1) Physical exam: Code(s): Z00.00 - Encounter for general adult medical examination without abnormal findings Category: Medical (2) Bilateral impacted cerumen: Code(s): H61.23 - Impacted cerumen, bilateral Category: Medical Plan .
[2025-03-14 13:04] VITALS: BP 108/60; PULSE 85; O2SAT 96; BMI 27.2
--- OUTSIDE RECORDS SUMMARY | 2025-03-14 13:22 | XMS_ITS | Clinical Summary ---
Author Organization [facility] Address [address] [place] [address] Phone Care Team Providers Care Auditor Appraiser Name Role Phone Amelia Beach Primary Care [...] CAPSULE BY MOUTH EVERY DAY 3 Active [employer]Touch UltraSoft Lancets 1 Device by Does not apply route 2 times daily. DX E11.49 1 Active blood sugar diagnostic ([employer] Verio test strips) test strip USE TO [...] Type 2 diabetes mellitus wit h cataract ([place] V24, [place] V28) 08/18/2024 Urinary incontinence 06/12/2021 Paroxysmal atrial fibrillation ([place] V24, [facility] V28) 02/19/2020 Lesion of breast 08/26/2018 Allergic rhinitis 04/20/2018 Asthma 04/20/2018 Diverticulosis 04/20/2018 Hyperlipidemia 04/20/2018 Type 2 diabetes mellitus wit h neurological manifestations ([place] V24, [place] V28) 04/20/2018 Anxiety 04/29/2017 Cataract 02/26/2017 Overview [...] Type 2 diabetes mellitus wit h cataract ([place] V24, [place] V28) DX:Type 2 diabetes mellitus with cataract (HCC) Allergic rhinitis 04/20/2018 DX:Allergic rh initis Carpal tunnel syndrome 08/29/2014 DX:Carpal tunnel syndrome Cataract 02/26/2017 DX:Cataract; COM MENT: S/p surgery History of herpes zoster 09/21/2016 DX:Hist ory of herpes zoster History of pancreatitis 03/25/2016 DX:Histo ry of pancreatitis Type 2 diabetes mellitus wit h neurological manifestations ([facility]/HCC V24, [facility]/HCC V28) 04/20/2018 DX:Type 2 diabetes mellitus with neurological manifestations ([facility]) H/O bone density study 02/17/2019 [...] 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 Location/Status: ??SPDIMAM/REG CLI ? Mnemonic/Ordering Site: ??DIGSC/SPMAM Ordering Physician: ??AMELIA BEACH PA-C Lc Screening Digital - 02/09/22 - 1203 INDICATION: SCREENING COMPARISON: [facility] mammograms dating back to ?? 02/01/2014 TECHNIQUE: CC and MLO views of the breasts were obtained, using full field digital mammography with 3D tomosynthesis views in the MLO projection. Computer aided detection with the [employer] 7.2-H was employed. FINDINGS: The breasts contain [...] date for the next mammogram. (G0202 / 34737) , ??[id number] Dictating Physician: ??MANISH ZARAGOZA MD Electronically Signed by: ??MANISH ZARAGOZA MD Dic Date/Time: ??02/09/22 1310 Sign date/Time: ??02/09/22 1315 Procedure Note Manish Zaragoza MD - 09/30/2022 [facility] Diagnostic Imaging Department [address] [place] [address] Patient: BRANDICLOTILDE /Age/Sex: 1955 - 66 - F Unit#: [id number] [facility]Ordering Site: [facility] Ordering Physician: AMELIA BEACH PA-C Lc Screening Digital - 02/09/22 - 1703 INDICATION: SCREENING COMPARISON: [facility] mammograms dating back to 02/01/2014 TECHNIQUE: CC and MLO views of the breasts were obtained, using full field digital mammography with 3D tomosynthesis views in the MLO projection. Computer aided detection with the [employer] 7.2-H was employed. FINDINGS: The breasts contain [...] a target date for the next mammogram. G0635 / 16515) , [id number] Dictating Physician: MANISH ZARAGOZA MD Electronically Signed by: MANISH ZARAGOZA MD Dic Date/Time: 02/09/22 1310 Sign date/Time: 02/09/22 1310 us Amelia FARMER IMG BI PROCEDURES Final Result * LC DEXA AXIAL SKELETON (09/11/2021 10:56 AM EST) Anatomical Region Laterality Modality Mammography 09/11/2021 10:3 1 AM EST Narrative 09/11/2021 10:56 AM EST [facility] Diagnostic Imaging Department [address] [place] [address] Patient: ??CLOTILDE VIDALES ?/Age/Sex: 1955 - 66 - F Unit#: ??[id number] ? Location/Status: ??SPDIMAM/REG CLI ? Mnemonic/Ordering Site: ??MAMDEXAAX/SPMAM Ordering Physician: ??ANDREA CERDA CNM [facility] Dexa Axial Skeleton - 09/11/21 - 1050 [...] probability of hip fracture of 0.4%. Code 30605 Dictating Physician: ??BRENNA TSE MD Electronically Signed by: ??BRENNA TSE MD Dic Date/Time: ??09/11/21 105 Sign date/Time: ??09/11/21 105 Procedure Note Brenna Tse MD - 09/30/2022 [facility] Diagnostic Imaging Department [address] [place] [address] Patient: KALYAN VIDALESJeremiah Llanes./Age/Sex: 1955 - 66 - F Unit#: [id number] [facility] Ordering Physician: ANDREA CERDA CNM Lc [...] density of the femurs bilaterally is 1.098 gm/vv3kfzcw is 109% of that of young normals [...] probability of hip fracture of 0.4%. Code 66705 Dictating Physician: BRENNA TSE MD Electronically Signed by: BRENNA TSE MD Dic Date/Time: 09/11/21 1054 Sign date/Time: 09/11/21 1056 Andrea Cerda CN IM BI PROCEDURES Final Resul t * Colonoscopy (01/17/2021) [facility] Colonoscopy Abstracted, no interpretation Anatomical Region Laterality Modality Other Result [facility] Provider HEALTH MAINTENANCE Final Result * Cervical Cancer Screening: HPV (01/20/2018) [facility] Cervical Cancer Screening: HPV Abstracted, Negative [facility] Provider HEALTH MAINTENANCE Final Result * Hepatitis C Screening (01/20/2018) [facility] Hepatitis C Screening Abstracted [facility] Provider HEALTH MAINTENANCE Final Result from Last 3 Months or Most Recently Relevant to Health Maintenance Insurance [facility] Member Subscriber Plan / Payer (Ef fective 2023-Present) Name:Clotilde Vidales Relation to Subscriber:Self Name:Clotilde Vidales Payer ID:[id number] Group ID:[id number] Type:Not on file Address: [address] [place] [address] MEDICAID - [place] Care Teams Auditor Appraiser Relationship Specialty Start Date End Date Ameila Beach PA [address] [address] PCP - General Internal Medicine 12/25/19
== END 2025-03-14 13:57 | disposition home or self-care (01) ==
LOC: HO.HMCC 13:00
PROVIDERS: PCP Nurse Practitioner Family; Visit Provider Nurse Practitioner Family
DX: Z00.00 Encounter for general adult medical examination without abnormal findings (principal); H61.23 Impacted cerumen, bilateral

== ENCOUNTER → 2025-03-14 12:59 | Outpatient (BNVA) | payer MEDICARE, MEDICAID, SELFPAY | PROVIDERS: PCP Nurse Practitioner Family; Visit Provider Nurse Practitioner Family | DX: Z00.00 Encounter for general adult medical examination without abnormal findings (principal); H61.23 Impacted cerumen, bilateral | CPT/HCPCS: 69209; 99397 ==

== ENCOUNTER 2025-04-10 15:23 | Outpatient (REF) | payer MEDICARE, MEDICAID, SELFPAY ==
[2025-04-10 15:33] LABS: MANUAL DIFF FLAG NO
--- OUTSIDE RECORDS SUMMARY | 2025-04-10 16:09 | XMS_ITS | Clinical Summary ---
Author Organization [facility] Address [address] [place] [address] Phone Care Team Providers Care Wiring Inspector Name Role Phone Amelia Beach Primary Care [...] Active blood-glucose meter (ONETOUCH VERIO IQ [facility]) Test blood sugar 2 [...] CAPSULE BY MOUTH EVERY DAY 3 Active No Paper Just VaporTouch UltraSoft Lancets 1 Device by Does not apply route 2 times daily. DX E11.49 1 Active blood sugar diagnostic ([employer] Verio test strips) test strip USE TO [...] Type 2 diabetes mellitus wit h cataract ([facility], [facility] V28) 08/18/2024 Urinary incontinence 06/12/2021 Paroxysmal atrial fibrillation ([facility] V24, [facility] V28) 02/19/2020 Lesion of breast 08/26/2018 Allergic rhinitis 04/20/2018 Asthma 04/20/2018 Diverticulosis 04/20/2018 Hyperlipidemia 04/20/2018 Type 2 diabetes mellitus wit h neurological manifestations ([facility]24, [facility] V28) 04/20/2018 Anxiety 04/29/2017 Cataract 02/26/2017 Overview [...] Type 2 diabetes mellitus wit h cataract ([facility] V24, [facility] V28) DX:Type 2 diabetes mellitus with cataract (HCC) Allergic rhinitis 04/20/2018 DX:Allergic rh initis Carpal tunnel syndrome 08/29/2014 DX:Carpal tunnel syndrome Cataract 02/26/2017 DX:Cataract; COM MENT: S/p surgery History of herpes zoster 09/21/2016 DX:Hist ory of herpes zoster History of pancreatitis 03/25/2016 DX:Histo ry of pancreatitis Type 2 diabetes mellitus wit h neurological manifestations ([facility]/HCC V24, [facility]/HCC V28) 04/20/2018 DX:Type 2 diabetes mellitus with neurological manifestations ([facility]) H/O bone density study 02/17/2019 [...] Job 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 Not on file Not on file No [...] Routine 10/22/2022 LIPID PANEL Routine 10/22/2022 [facility] SCREENING DIGITAL Routine 02/09/2022 1:15 PM EDT Encounter for screening mammogram for malignant neoplasm of breast [facility] DEXA AXIAL SKELETON Routine 09/11/2021 [...] AM EDT Narrative 02/09/2022 1:15 PM EDT [facility] Diagnostic Imaging Department [address] [place] [address] Patient: BRANDICLOTILDE./Age/Sex: 1955 - 66 - F Unit#: [id number] [facility]Ordering Site: [facility] Ordering Physician: AMELIA BEACH PA-C Lc Screening Digital - 02/09/22 - 1203 INDICATION: SCREENING COMPARISON: [facility] mammograms dating back to 02/01/2014 TECHNIQUE: CC and MLO views of the breasts were obtained, using full field digital mammography with 3D tomosynthesis views in the MLO projection. Computer aided detection with the [employer] [place] 7.2-H was employed. FINDINGS: The breasts contain scattered fibroglandular tissues. Metallic tissue marker is visualized on the left. Benign-appearing breast and vascular type calcification visualized bilaterally. No suspicious masses, suspicious microcalcifications, or areas of architectural distortion are identified. There are no secondary signs of breast malignancy. IMPRESSION: No specific mammographic evidence of breast malignancy. Lack of an imaging correlate should not deter or delay biopsy of a clinically significant palpable finding. BI-RADS - Category 2 - Benign finding 3342F, 7025F Annual screening mammography is recommended. Patient entered into a reminder system with a target date for the next mammogram. G0727 / 40790) , [id number] Dictating Physician: MANISH ZARAGOZA MD Electronically Signed by: MANISH ZARAGOZA MD Dic Date/Time: 02/09/22 1310 Sign date/Time: 02/09/22 1315 Procedure Note Manish Zaragoza MD - 09/30/2022 [facility] Diagnostic Imaging Department [address] [place] [address] Patient: BRANDICLOTILDE /Age/Sex: 1955 - 66 - F Unit#: [id number] [facility]Ordering Site[facility] Ordering Physician: AMELIA BEACH PA-C Lc Screening Digital - 02/09/22 - 1203 INDICATION: SCREENING COMPARISON: [facility] mammograms dating back to 02/01/2014 TECHNIQUE: CC and MLO views of the breasts were obtained, using full field digital mammography with 3D tomosynthesis views in the MLO projection. Computer aided detection with the THYME 7.2-H was employed. FINDINGS: The breasts contain [...] a target date for the next mammogram. G0779 / 30768) , [id number] Dictating Physician: MANISH ZARAGOZA MD Electronically Signed by: MANISH ZARAGOZA MD Dic Date/Time: 02/09/22 1310 Sign date/Time: 02/09/22 1316 us Amelia FARMER IMG BI PROCEDURES Final Result * [facility] DEXA AXIAL SKELETON (09/11/2021 10:56 AM EST) Anatomical Region Laterality Modality Mammography 09/11/2021 10:3 1 AM EST Narrative 09/11/2021 10:56 AM EST [facility] Diagnostic Imaging Department [address] [place] [address] Patient: KALYAN VIDALESA /Age/Sex: 1955 - 66 - F Unit#: [id number] [facility] Ordering Physician: ANDREA CERDA CNM Lc Dexa Axial Skeleton - 09/11/211049 HISTORY: The patient is a 66-year-old postmenopausal female on chronic glucocorticoid therapy, with clinical concern for metabolic bone disease. FINDINGS: Dual energy x-ray absorptiometry of the [...] 123% of that of age matched controls. This yields a T-score of 0.7 and a Z-score of 1.6 and there is therefore no evidence of osteoporosis or osteopenia here. IMPRESSION: 1. There is no evidence of osteoporosis or osteopenia. There has been an increase of 1.1% in bone mineral density in the lumbar spine since the prior examination of 02/17/2019. There has been a decrease of 4.8% in bone mineral density in the right femur and an increase of 0.3% in bone mineral density in the left femur. 2. FRAX analysis yields a 10-year probability of major osteoporotic fracture of 6.3% and a 10-year probability of hip fracture of 0.4%. Code 44880 Dictating Physician: BRENNA TSE MD Electronically Signed by: BRENNA TSE MD Dic Date/Time: 09/11/211053 Sign date/Time: 09/11/211055 Procedure Note Brenna Tse MD - 09/30/2022 [facility] Diagnostic Imaging Department [address] [place], [place] [id number] Patient: CLOTILDE VIDALES /Age/Sex: 1955 - 66 - F Unit#: [id number] Location/Status: [facility]/REG CLI Mnemonic/Ordering Site: [facility]X/SPMAM Ordering Physician: ANDREA CERDA CNM Lc Dexa [...] density of the femurs bilaterally is 1.098 gm/ep8lnahi is 109% of that of young normals [...] probability of hip fracture of 0.4%. Code 16293 Dictating Physician: BRENNA TSE MD Electronically Signed by: BRENNA TSE MD Dic Date/Time: 09/11/21 1054 Sign date/Time: 09/11/21 1056 Andrea Cerda CN IMG BI PROCEDURES Final Resul t * Colonoscopy (01/17/2021) [facility] Colonoscopy Abstracted, no interpretation Anatomical Region Laterality Modality Other Result [facility] Historical Provider HEALTH MAINTENANCE Final Result * Cervical Cancer Screening: HPV (01/20/2018) [facility] Cervical Cancer Screening: HPV Abstracted, Negative Historical Provider HEALTH MAINTENANCE Final Result * Hepatitis C Screening (01/20/2018) [facility] Hepatitis C Screening Abstracted Historical Provider HEALTH MAINTENANCE Final Result from Last 3 Months or Most Recently Relevant to Health Maintenance Insurance [facility] Member Subscriber Plan / Payer (Ef fective 2023-Present) Name:Clotilde Vidales Relation to Subscriber:Self Name:Clotilde Vidales Payer ID:[id number] Group ID:[id number] Type:Not on file Address: [place] [address] [place] [address] MED[place] - [place] Care Teams Wiring Inspector Relationship Specialty Start Date End Date Amelia Beach PA 175 [facility] [address] [place] [address] PCP - General Internal Medicine 12/25/19
[2025-04-10 16:21] LABS: Hematocrit 41.5 % (37.0-47.0); Hemoglobin 13.6 g/dl (12.0-16.0); Imm Gran Abs Auto 0.02 X10*3/uL (0.00-0.03); Imm Gran Pct Auto 0.4 % (0.0-0.4); Lymphocytes Absolute Auto 2.4 X10*3/uL (1.2-4.9); Mean Corpuscular HGB Conc 32.8 g/dl (31.0-35.0); Mean Corpuscular Hemoglobin 26.9 pg (27.0-33.0); Mean Corpuscular Volume 82.2 fL (80.0-98.0); NRBC Abs Auto 0.000 X10*3/uL (0.0-0.012); NRBC Pct Auto 0.0 /100WBC (0.0-0.2); Platelet Count 289 X10*3/uL (160-400); Red Blood Count 5.05 X10*6/uL (4.20-5.50); White Blood Count 5.6 X10*3/uL (4.8-10.8)
[2025-04-10 16:44] LABS: Appearance Urine Clear; Glucose Urine UA >=1000 mg/dL (Negative); PH 5.5 (5.0-9.0); Specific Gravity - Urine >= 1.030 (1.005-1.025); UMIC TRIGGER UACC YES
== END 2025-04-10 15:24 | disposition home or self-care (01) ==
LOC: HO.LAB 15:23
PROVIDERS: PCP Nurse Practitioner Family; Visit Provider Nurse Practitioner Family
DX: R79.89 Other specified abnormal findings of blood chemistry (principal)
CPT/HCPCS: 36415; 81001; 85025

== ENCOUNTER 2025-04-23 14:09 | Outpatient (AMB) | payer MEDICARE, MEDICAID, SELFPAY ==
--- NOTE | 2025-04-23 14:14 | A.OFFVIS_ITS ---
Vital Signs 04/23/25 14:15 04/23/25 14:34 Height 5 ft 2 in Weight 150 lb 12.739 oz BMI 27.6 BP 83/37 L 122/67 Blood Pressure Location Lt brachial Lt brachial Position Sitting Sitting Pulse 86 88 Pulse Oximetry (%) 97 Oxygen Delivery Method Room Air Intake Visit Reasons: 3m Intake Note: patient 3 month follow up for Pires's esophagus determined by biopsy Patient cc: abdominal pain on and off, and constipation. Denies any other GI issues. 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 Patient can also take Dulcolax in the afternoon if she is unable to have a bowel movement. Increase fluid intake and activity to promote better bowel motility. Patient can take omeprazole daily. Diagnosed with Barretts. Patient will need to have repeated endoscopy in 3 is due to Barretts. However if patient will continues to be symptomatic so we can repeat sooner. Patient was encouraged to avoid dietary triggers and late night snacking. Staying upright for minimum 3 hours after meals discussed with patient. Patient will follow-up in 3 months, sooner on as needed basis. She is agreeable to this plan and verbalizes understanding of instructions. She was given the opportunity to ask questions and all questions answered. ? Thank you for allowing me to participate in her care Refilled plecanatide (Trulance) 3 mg PO DAILY 30 tabs 3RF K59.09 omeprazole 40 mg PO DAILY 90 caps 3RF TODAY'S VISIT: Patient is here today for follow-up. Patient reports that her acid reflux has been controlled. She tries to watch her diet. Occasional reflux depending on what she eats. Occasional abdominal pain and bloating. Patient reports that with Trulance she is moving her bowels better now. Patient also is taking Dulcolax at bedtime which helps her empty better. Patient denies dyspepsia, dysphagia or odynophagia. Denies melena, hematochezia, unintentional weight lo ss or ribbon like stools. [facility] Medical History Pires's esophagus determined by biopsy Barretts esophagus Diabetes Murmur Anemia Paroxysmal atrial fibrillation Edema Surgical History H/O colonoscopy History of carpal tunnel surgery of right wrist Hx of hand surgery Family History Mother No problems noted. Father No problems noted. Social History Housing: Apartment Patient Tobacco Use Status: Never used Tobacco e-Cigarette/Vaping Use: Never Used Second Hand Smoke Exposure: No service: No Current occupational status: retired Cognitive needs: No Hearing needs: No Vision needs: No Review of Systems Const Denies weight gain and Denies weight loss ENT Reports no additional complaints, Denies dysphagia and Denies odynophagia Card Reports no additional complaints Resp Reports no additional complaints GI Reports abdominal pain (Occasional ), Denies belching, Denies melena, Reports bloating, Denies change in bowel habits, Reports constipation, Denies dysphagia, Denies excessive flatus, Denies dyspepsia, Denies heartburn, Denies diarrhea, Denies loose stools, Denies nausea, Denies odynophagia and Denies vomiting Reports no additional complaints Musc Reports no additional complaints Neuro Reports no additional complaints Psych Reports no additional complaints Endo Reports no additional complaints Physical Exam Vital Signs: Last Vital Signs Pulse 88 04/23/25 14:34 BP 122/67 04/23/25 14:34 Pulse Ox 97 04/23/25 14:15 Oxygen Delivery Method Room Air 04/23/25 14:15 BMI result Body Mass Index 27.6 Const General: healthy appearing, no acute distress and well developed Nutritional Appearance: well nourished Orientation/consciousness: patient oriented x3 Resp Effort & Inspection: normal respiratory effort, able to speak in complete s entences, no tracheal deviation and symmetric chest movement Auscultation: clear to auscultation bilaterally Cardio Rate: regular rate GI Inspection: Yes normal to inspection and No distended Palpation (GI): Soft to palpation, not firm, nontender and No hepatosplenomegaly present Auscultation: normal bowel sounds General: Yes no CVA tenderness Back/Spine/Pelvis Back: no CVA tenderness Skin General skin exam: elasticity normal, turgor normal and dry skin Neuro General: patient oriented x3 Psych Appearance: grossly normal Mental Status: mental status grossly normal Assessment & Plan Assessment & Plan (1) Pires's esophagus determined by biopsy: Code(s): K22.70 - Pires's esophagus without dysplasia Category: Medical (2) Excessive gas: Code(s): R14.3 - Flatulence Category: Medical (3) Chronic idiopathic constipation: Code(s): K59.04 - Chronic idiopathic constipation (4) Left upper quadrant abdominal pain: Code(s): R10.12 - Left upper quadrant pain (5) Gastroesophageal reflux disease: Code(s): K21.9 - Gastro-esophageal reflux disease without esophagitis Qualifiers: Esophagitis presence: esophagitis presence not specified Qualified Code(s): K21.9 - Gastro-esophageal reflux disease without esophagitis Plan Continue omeprazole daily. Avoid dietary triggers and late night snacking. Staying upright for minimum 3 hours after meals discussed with patient. Continue Trulance and Dulcolax. Increase fluid intake and activity to promote better bowel motility. Low FODMAP diet recommended. Patient will follow-up in 6 months, sooner on as needed basis. She is agreeable to this plan and verbalizes understanding of instructions. She was given the opportunity to ask questions and all questions answered. Thank you for allowing me to participate in her care Coding Level of Care Code Est Pt Level 3 (00672) Diagnoses Pires's esophagus determined by biopsy K22.70 Excessive gas R14.3 Chronic idiopathic constipation K59.04 Left upper quadrant abdominal pain R10.12 Gastroesophageal reflux disease, unspecified whether esophagitis present K21.9 Esophagitis presence: esophagitis presence not specified Time Spent (min) 25 Comment 15 minutes spent with patient and additional 10 minutes spent reviewing her records
[2025-04-23 14:15] VITALS: BP 83/37; PULSE 86; O2SAT 97; BMI 27.6
[2025-04-23 14:34] VITALS: BP 122/67; PULSE 88
== END 2025-04-23 14:36 | disposition home or self-care (01) ==
LOC: HO.HGI 14:10
PROVIDERS: PCP Nurse Practitioner Family; Visit Provider Nurse Practitioner Family
DX: K22.70 Barrett's esophagus without dysplasia (principal); R14.3 Flatulence; K59.04 Chronic idiopathic constipation; R10.12 Left upper quadrant pain; K21.9 Gastro-esophageal reflux disease without esophagitis
CPT/HCPCS: 99213

== ENCOUNTER → 2025-04-23 14:09 | Outpatient (BNVA) | payer MEDICARE, MEDICAID, SELFPAY | PROVIDERS: PCP Nurse Practitioner Family; Visit Provider Nurse Practitioner Family | DX: K22.70 Barrett's esophagus without dysplasia (principal); K59.04 Chronic idiopathic constipation; K21.9 Gastro-esophageal reflux disease without esophagitis; R14.3 Flatulence; R10.12 Left upper quadrant pain | CPT/HCPCS: 99212 ==

== ENCOUNTER 2025-05-14 11:40 | Outpatient (REF) | payer MEDICARE, MEDICAID, SELFPAY ==
--- OUTSIDE RECORDS SUMMARY | 2025-05-14 12:27 | XMS_ITS | Clinical Summary ---
Author Organization [facility] Address [address] [place] [address] Phone Care Team Providers Care Chromium Plater Name Role Phone Amelia [facility] [...] Active blood-glucose meter (ONETOUCH VERIO IQ METER [facility]) Test blood sugar 2 times daily DX:E11.49 [...] CAPSULE BY MOUTH EVERY DAY 3 Active [employer] USATouch UltraSoft Lancets 1 Device by Does not apply route 2 times daily. DX E11.49 1 Active blood sugar diagnostic (Slated Verio test strips) test strip USE TO [...] 2 diabetes mellitus wit h cataract ([facility] V24, [facility] V28) 08/18/2024 Urinary incontinence 06/12/2021 Paroxysmal atrial fibrillation ([facility] V24, [facility] V28) 02/19/2020 Lesion of breast 08/26/2018 Allergic rhinitis 04/20/2018 Asthma 04/20/2018 Diverticulosis 04/20/2018 Hyperlipidemia 04/20/2018 Type 2 diabetes mellitus wit h neurological manifestations ([facility] V24, [facility] V28) 04/20/2018 [...] 2 diabetes mellitus wit h cataract ([facility] V24, [facility] V28) DX:Type 2 diabetes mellitus with cataract (HCC) Allergic rhinitis 04/20/2018 DX:Allergic rh initis Carpal tunnel syndrome 08/29/2014 DX:Carpal tunnel syndrome Cataract 02/26/2017 DX:Cataract; COM MENT: S/p surgery History of herpes zoster 09/21/2016 DX:Hist ory of herpes zoster History of pancreatitis 03/25/2016 DX:Histo ry of pancreatitis Type 2 diabetes mellitus wit h neurological manifestations ([facility] V24, [facility] V28) 04/20/2018 DX:Type 2 diabetes mellitus with neurological manifestations ([facility]) H/O bone density study 02/17/2019 [...] Job Start Date 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 Not on file Not on file No [...] Zoster Vaccines (2 of 2) 10/06/2019 08/11/2019 Falls Risk Assessment 09/19/2022 Social Influencers of Health Screening 09/19/2022 Cervical Cancer Screening: HPV 01/20/2023 01/20/2018 Diabetes: Blood Sugar Control Test (HGBA1C) 04/21/2023 10/22/2022 Diabetes: Annual Urine Albumin-Creatinine Ratio (uACR) 10/22/2023 10/22/2022 Diabetes: Annual GFR (Glomerular Filtration Rate) 10/22/2023 10/22/2022 Breast Cancer Screening 02/10/2024 02/10/20, 12/24/2020, 09/04/2019, Additional history exists COVID-19 Vaccine ( season) 2024 08/30/2022, 04/15/2022, 09/01/2021, Additional history exists Depression Screening 10/11/2024 Influenza Vaccine (#1) 2025 , 07/29/2023, 06/18/2022, Additional history exists Cholesterol Screening (Lipid Panel) 10/22/2027 10/22/2022 Colorectal Cancer Screening: Colonoscopy 01/17/2031 01/17/2021 Osteoporosis Screening (Bone Density Screening) 09/11/2031 09/11/2021, 02/17/2019 Hepatitis C Screening Completed 01/20/2018 Pneumococcal Vaccine: 50+ Years Completed 10/21/2023, 10/09/2020 HIB Vaccines Aged Out No longer eligi [...] A1C Routine 10/22/2022 LIPID PANEL Routine 10/22/2022 [facility] SCREENING DIGITAL Routine 02/09/2022 1:15 PM EDT Encounter for screening mammogram for malignant neoplasm of breast [facility] DEXA AXIAL SKELETON Routine 09/11/2021 10:56 AM EST Encounter for screening for osteoporosis COLONOSCOPY Routine 01/17/2021 HPV Routine 01/20/2018 HEPATITIS C SCREENING Routine 01/20/2018 from Last 3 Months or Most Recently Relevant to Health Maintenance Results * Urine Albumin Creatinine Ratio (10/22/2022) Pathologist [facility] Urine Albumin Creatinine Ratio Abstracted Historical Provider HEALTH MAINTENANCE Final Result * Annual BMP Blood Test (10/22/2022) Pathologist [facility] Annual BMP Blood Test Abstracted us Historical Provider HEALTH MAINTENANCE Final Result * (ABNORMAL) Hemoglobin A1c (10/22/2022) Pathologist [facility] Hemoglobin A1C 9.3(A) <=6.5 % Blood Venous [...] EDT [facility] Diagnostic Imaging Department [address] [place] [address] Patient: SHOBHA VIDALES /Age/Sex: 1955 - 66 - F Unit#: [id number] Location/Status: [facility] Mnemonic/Ordering Site: [facility] Ordering Physician: AMELIA BEACH PA-C Lc Screening Digital - 02/09/22 - 1203 INDICATION: SCREENING COMPARISON: [facility] mammograms dating back to 02/01/2014 TECHNIQUE: CC and MLO views of the breasts were obtained, using full field digital mammography with 3D tomosynthesis views in the MLO projection. Computer aided detection with the [employer] 7.2-H was employed. FINDINGS: The breasts contain [...] a target date for the next mammogram. G0202 / [id number] , [id number] Dictating Physician: MANISH ZARAGOZA MD Electronically Signed by: MANISH ZARAGOZA MD Dic Date/Time: 02/09/22 1310 Sign date/Time: 02/09/22 1315 Procedure Note Manish Zaragoza MD - 09/30/2022 [facility] Diagnostic Imaging Department [address] [place] [address] Patient: SHOBHA VIDALES/Age/Sex: 1955 - 66 - F Unit#: [id number] [facility] Mnemonic/Ordering Site: [facility] Ordering Physician: AMELIA BEACH PA-C Lc Screening Digital - 02/09/22 - 1203 INDICATION: SCREENING COMPARISON: [facility] mammograms dating back to 02/01/2014 TECHNIQUE: CC and MLO views of the breasts were obtained, using full field digital mammography with 3D tomosynthesis views in the MLO projection. Computer aided detection with the [employer] 7.2-H was employed. FINDINGS: The breasts contain [...] a target date for the next mammogram. G0607 / 82675) , [id number] Dictating Physician: MANISH ZARAGOZA MD Electronically Signed by: MANISH ZARAGOZA MD Dic Date/Time: 02/09/22 1310 Sign date/Time: 02/09/22 1315 us Amelia FARMER IMG BI PROCEDURES Final Result * LC DEXA AXIAL SKELETON (09/11/2021 10:56 AM EST) Anatomical Region Laterality Modality Mammography 09/11/2021 10:3 1 AM EST Narrative 09/11/2021 10:56 AM EST [facility] Diagnostic Imaging Department [address] [place] [address] Patient: SHOBHA VIDALES /Age/Sex: 1955 - 66 - F Unit#: [id number] Location/Status: [facility] CLI Mnemonic/Ordering Site: [facility] Ordering Physician: ANDREA [...] probability of hip fracture of 0.4%. Code 98888 Dictating Physician: BRENNA TSE MD Electronically Signed by: BRENNA TSE MD Dic Date/Time: 09/11/21 1054 Sign date/Time: 09/11/21 105 Procedure Note Brenna Tse MD - 09/30/2022 [facility] Diagnostic Imaging Department [address] [place] [id number] Patient: KALYAN VIDALESA /Age/Sex: 1955 - 66 - F Unit#: [id number] Location/Status: [facility] CLI Mnem[facility] Ordering Physician: ANDREA CERDA CNM Lc Dexa Axial Skeleton - 09/11/210 HISTORY: The patient is a 66-year-old postmenopausal [...] density of the femurs bilaterally is 1.098 gm/rk0stblx is 109% of that of young normals [...] probability of hip fracture of 0.4%. Code 37274 Dictating Physician: BRENNA TSE MD Electronically Signed by: BRENNA TSE MD Dic Date/Time: 09/11/21 1054 Sign date/Time: 09/11/21 1056 Andrea Cerda CN IMG BI PROCEDURES Final Resul t * Colonoscopy (01/17/2021) Colonoscopy Abstracted, no interpretation Anatomical Region Laterality Modality Other Historical Provider HEALTH MAINTENANCE Final Result * Cervical Cancer Screening: HPV (01/20/2018) Pathologist [facility] Cervical Cancer Screening: HPV Abstracted, Negative Result [facility] Historical Provider HEALTH MAINTENANCE Final Result * Hepatitis C Screening (01/20/2018) Pathologist [facility] Hepatitis C Screening Abstracted Historical Provider HEALTH MAINTENANCE Final Result from Last 3 Months or Most Recently Relevant to Health Maintenance Insurance [facility] Member Subscriber Plan / Payer (Ef fective 2023-Present) Name:Shobha Vidales Relation to Subscriber:Self Name:Shobha Vidales Payer ID:[id number] Group ID:[id number] Type:Not on file Address: [place] [address] [address] [address] [place] Care Teams Chromium Plater Relationship Specialty Start Date End Date Amelia Beach PA [address] [address] PCP - General Internal Medicine 12/25/19
== END 2025-05-14 11:41 | disposition home or self-care (01) ==
LOC: HO.MAMMO 11:40
PROVIDERS: PCP Nurse Practitioner Family; Visit Provider Nurse Practitioner Family
DX: Z12.31 Encounter for screening mammogram for malignant neoplasm of breast (principal)
CPT/HCPCS: 77063; 77067

== ENCOUNTER → 2025-05-14 12:00 | Outpatient (BNV) | payer MEDICARE, MEDICAID, SELFPAY | PROVIDERS: PCP Nurse Practitioner Family; Visit Provider Internal Medicine | DX: Z12.31 Encounter for screening mammogram for malignant neoplasm of breast (principal) | CPT/HCPCS: 77063; 77067 ==

== ENCOUNTER 2025-07-17 13:46 | Outpatient (AMB) | payer MEDICARE, MEDICAID, SELFPAY ==
[2025-07-17 14:10] VITALS: BP 122/66; PULSE 88; RESP 18; TEMP 36.8; O2SAT 98; BMI 27.8
--- NOTE | 2025-07-17 14:10 | MHC.PC.OV ---
Vital Signs 07/17/25 14:10 Height 5 ft 2 in Weight 152 lb BMI 27.8 BP 122/66 Blood Pressure Location Lt brachial Position Sitting Respiration 18 Pulse 88 Pulse Source Pulse Oximeter Temp 98.2 F Temp Source Oral Pulse Oximetry (%) 98 Oxygen Delivery Method Room Air Intake Visit Reasons: 4m follow up Intake Note: Pt is here today for 4 months follow up visit. Allergies sitagliptin (From [employer]) Allergy (Intermediate, Verified 07/17/25 14:48) diarrhea/vomiting Medication List - Last Reconciled 07/17/25 by Chris Singh, ENVIRONMENTAL HEALTH AND SAFETY MANAGER- Accu-Chek Guide Glucose Meter (blood-glucose meter) Test sugar once a day NS Accu-Chek Guide test strips (blood sugar diagnostic) Test blood sugar once a day NS albuterol sulfate 90 mcg/actuation 2 puffs inhalation Q4H PRN apixaban (Eliquis) 5 mg PO BID atorvastatin 20 mg PO DAILY bisacodyl (Dulcolax (bisacodyl)) 10 mg (2 x 5 mg) PO BEDTIME cetirizine 20 mg (2 x 10 mg) PO DAILY 90 days cyanocobalamin (vitamin B-12) 500 mcg PO Q OTHER DAY docusate sodium 100 mg PO BID empagliflozin (Jardiance) 25 mg PO DAILY ferrous sulfate 325 mg PO DAILY fluticasone propionate 50 mcg/actuation 50 sprays intranasal DAILY glipizide ER 20 mg (2 x 10 mg) PO DAILY incontinence pad, liner, disp (Prevail Panty Liner pads) As directed lancets (Accu-Chek Softclix Lancets) Test blood sugar once a day lisinopril 2.5 mg PO DAILY metformin 1,000 mg PO BID metoprolol succinate ER 50 mg PO DAILY omeprazole 40 mg PO DAILY plecanatide (Trulance) 3 mg PO DAILY semaglutide (Ozempic) 2 mg (0.75 mL) subcut QWEEK [skin care wipes As directed] vibegron (Gemtesa) 75 mg PO DAILY Tobacco use date assessed: 07/17/25 Fall risk assessment: No Falls in past year Last assessed Fall Risk: 07/17/25 Dental Screening Dental Screen Date: 03/14/25 HPI 4m follow up HPI Details Chief Complaint The patient presents for diabetes follow-up. History of Present Illness The patient is a 70-year-old female presenting with diabetes management. She reports that her eye exam is current and denies any symptoms of neuropathy, polyuria, or polydipsia. She also denies experiencing any chest pain or shortness of breath. A systolic murmur was noted during the examination, but her lungs were clear upon auscultation. Her hemoglobin A1c is well-controlled at 6.1%. Lab orders, including a microalbumin test, were entered to monitor her condition. The current medication regimen for diabetes management is effective, and she reports feeling excellent. Social History Health Maintenance - Eye exam is up to date - Lab orders include microalbumin test Review of Systems - Endocrine: Denies polyuria, polydipsia - Cardiovascular: Denies chest pain, shortness of breath - Neurological: Denies neuropathy Physical Exam General: Cooperative, healthy appearing, comfortable, no acute distress and well developed Orientation: Patient oriented x3 Limitations: No limitations Head: Normal to inspection Ears: Hearing grossly normal bilaterally Nose: Normal external nose present Face and sinus: Normal facial exam Eyes: Appearance normal, both eyes and all related structures Neck: Normal visual inspection and Yes full ROM Respiratory: Normal respiratory effort and able to speak in complete sentences. Clear to auscultation bilaterally Cardiovascular: Regular rate and rhythm. Faint systolic murmur noted GI: Normal to inspection. Soft to palpation and nontender Skin: No rashes or lesions noted Neuro: Patient oriented x3 Extremities: Normal to inspection Results - Labs: Hemoglobin A1c at 6.1% - Labs: Microalbumin test ordered Plan 1. Diabetes Mellitus The patient's diabetes is well-managed with the current medication regimen, as evidenced by an A1c of 6.1%. We will continue the current treatment plan and monitor with regular lab tests, including a microalbumin test. Discussion Notes I discussed with the patient that her diabetes management is effective, as indicated by her A1c level. We agreed to maintain her current medication regimen and continue monitoring her condition with regular lab tests. Patient Instructions - Continue current diabetes medication regimen. - Follow up with regular lab tests as ordered. [facility] Medical History Pires's esophagus determined by biopsy Barretts esophagus Diabetes Murmur Anemia Paroxysmal atrial fibrillation Edema Surgical History H/O colonoscopy History of carpal tunnel surgery of right wrist Hx of hand surgery Family History Mother No problems noted. Father No problems noted. Social History Housing: Apartment Patient Tobacco Use Status: Never used Tobacco e-Cigarette/Vaping Use: Never Used Second Hand Smoke Exposure: No service: No Current occupational status: retired Cognitive needs: No Hearing needs: No Vision needs: No Questionnaire Thrive Questionnaire Date Thrive assessed: 02/05/25 I am a: Patient What is your living situation today?: I have a steady place to live Within the past 12 months, did the food you bought not last and you didn't have the money to get more?: I choose not to answer this question Within the past 12 months, did you worry whether your food would run out before you got money to buy more?: Sometimes True Do you have trouble paying for medicines?: No Do you have trouble getting transportation to medical appointments?: No Do you have trouble paying your heating and electricity bill?: No Do you have trouble taking care of your child, family member or friend?: No Do you have trouble with day-to-day activities such as bathing, preparing meals, shopping, managing finances, etc.?: No Are you currently unemployed and looking for a job?: No Are you interested in more education?: I choose not to answer this question THRIVE Score: 1 TOMEKA-7 AMB Questionnaire TOMEKA-7 Date TOMEKA - 7 assessed: 02/05/25 Source: Developed by Drs. Gonsalo Gomez, Jerilyn Doe, Santiago Wakefield and colleagues, with an educational yung from [facility]. Physical exam (Primary Care) Vital Signs: Last Vital Signs Temp 98.2 F 07/17/25 14:10 Pulse 88 07/17/25 14:10 Resp 18 07/17/25 14:10 BP 122/66 07/17/25 14:10 Pulse Ox 98 07/17/25 14:10 Oxygen Delivery Method Room Air 07/17/25 14:10 BMI result Body Mass Index 27.8 Tobacco/Smoking Status: Tobacco use Status Tobacco use date assessed 07/17/25 07/17/25 14:16 Patient Tobacco Use Status Never used Tobacco 07/17/25 14:12 e-Cigarette/Vaping Use Never Used 07/17/25 14:12 Thrive Assessment: Date of Thrive Assessment Date Thrive assessed 02/05/25 07/17/25 14:12 Results AMB Hemoglobin A1c AMB Hemoglobin A1c 6.1 % Last Edit by Alberto Case CMA on 07/17/25 14:24 Results Reviewed Results Reviewed: Laboratory Last Values Hgb A1c (Clinic) 6.1 % (4.0-6.0) H 07/17/25 14:17 Coding Level of Care Code Est Pt Level 3 (85062) Diagnoses Diabetes mellitus E11.9 B12 deficiency E53.8 Vitamin D deficiency E55.9 Assessment & Plan Assessment & Plan (1) Diabetes mellitus: Code(s): E11.9 - Type 2 diabetes mellitus without complications Category: Medical (2) B12 deficiency: Code(s): E53.8 - Deficiency of other specified B group vitamins Category: Medical (3) Vitamin D deficiency: Code(s): E55.9 - Vitamin D deficiency, unspecified Category: Medical Plan . Orders: Orders AMB Hemoglobin A1c Today Z13.9 - Encounter for screening, unspecified TSH reflex Free T4 Today E11.9 - Type 2 diabetes mellitus without complications, E53.8 - Deficiency of other specified B group vitamins Complete Blood Count Auto Diff Today E11.9 - Type 2 diabetes mellitus without complications, E53.8 - Deficiency of other specified B group vitamins Comprehensive [place]. Panel Fast Today E11.9 - Type 2 diabetes mellitus without complications, E53.8 - Deficiency of other specified B group vitamins UA CC w/rflx Micro + Cult Today E11.9 - Type 2 diabetes mellitus without complications, E53.8 - Deficiency of other specified B group vitamins Lipid Panel Today E11.9 - Type 2 diabetes mellitus without complications, E53.8 - Deficiency of other specified B group vitamins Microalbumin, Random (w Creat) Today E11.9 - Type 2 diabetes mellitus without complications, E53.8 - Deficiency of other specified B group vitamins Vitamin B12 and Folate Today E53.8 - Deficiency of other specified B group vitamins Vitamin D 25-OH Total Today E55.9 - Vitamin D deficiency, unspecified
--- OUTSIDE RECORDS SUMMARY | 2025-07-17 16:58 | XMS_ITS | Clinical Summary ---
Author Organization [facility] Address [address] [place] [address] Phone Care Team Providers Care International Nurse Name Role Phone Amelia Beach Primary Care [...] Active blood-glucose meter (ONETOUCH VERIO IQ METER [facility]) Test blood sugar 2 times daily DX:E11.49 [...] CAPSULE BY MOUTH EVERY DAY 3 Active [employer] WirelessTouch UltraSoft Lancets 1 Device by Does not apply route 2 times daily. DX E11.49 1 Active blood sugar diagnostic ([employer] Verio test strips) test strip USE TO [...] TABLET BY MOUTH EVERY DAY 3 Active clotrimazole-b etamethasone (LOTRISONE) 1-0.05 % cream APPLY TO AFFECTED AREA TWICE A DAY FOR 7 DAYS 30 g 5 Active Active Problems Problem Noted Date Diagnosed Date GERD (gastroesophageal reflux disease) 4 OAB (overactive bladder) 08/18/2024 Rosacea 08/18/2024 Overview (08/18/2024): metrogel topical Type 2 diabetes mellitus wit h cataract ([facility] V24, [facility] V28) 08/18/2024 Urinary incontinence 06/12/2021 Paroxysmal atrial fibrillation ([facility] V24, [facility] V28) 02/19/2020 Lesion of breast 08/26/2018 Allergic rhinitis 04/20/2018 Asthma 04/20/2018 Diverticulosis 04/20/2018 Hyperlipidemia 04/20/2018 Type 2 diabetes mellitus wit h neurological manifestations ([facility] V24, [facility] V28) 04/20/2018 Anxiety 04/29/2017 Cataract 02/26/2017 Overview (08/18/2024): S/p surgery Carpal tunnel syndrome 08/29/2014 Immunizations Immunization Administration Dates Next Due Influenza trivalent, 0.5mL [...] HISTORICAL CARPAL TUNNEL REL; COMMENT: done in Medical History Medical History Date Comments Asthma DX:Asthma GERD (gastroesophageal reflu x disease) DX:GERD (gastroesophageal re flux disease) Anxiety DX:Anxiety Diverticulosis DX:Diverticulosi s Hyperlipidemia DX:Hyperlipidemi a Rosacea DX:Rosacea; COMM ENT: metrogel topical Type 2 diabetes mellitus wit h cataract ([facility] V24, [facility] V28) DX:Type 2 diabetes mellitus with cataract (HCC) Allergic rhinitis 04/20/2018 DX:Allergic rh initis Carpal tunnel syndrome 08/29/2014 DX:Carpal tunnel syndrome Cataract 02/26/2017 DX:Cataract; COM MENT: S/p surgery History of herpes zoster 09/21/2016 DX:Hist ory of herpes zoster History of pancreatitis 03/25/2016 DX:Histo ry of pancreatitis Type 2 diabetes mellitus wit h neurological manifestations (CMS/HCC V24, CMS/HCC V28) 04/20/2018 DX:Type 2 diabetes mellitus with neurological manifestations (HCC) H/O bone density study 02/17/2019 DX:H/O hilario [...] Start Date Job End Date 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 Not on file Not on file No [...] 02/10/2024 02/10/20, 12/24/2020, 09/04/2019, Additional history exists Depression Screening 10/11/2024 COVID-19 Vaccine ( season) 2025 08/30/2022, 04/15/2022, 09/01/2021, Additional history exists Influenza Vaccine (#1) 2025 , 07/29/2023, 06/18/2022, [...] A1C Routine 10/22/2022 LIPID PANEL Routine 10/22/2022 [facility] SCREENING DIGITAL Routine 02/09/2022 1:15 PM EDT Encounter for screening mammogram for malignant neoplasm of breast [facility] DEXA AXIAL SKELETON Routine 09/11/2021 10:56 AM EST Encounter for screening for osteoporosis COLONOSCOPY Routine 01/17/2021 HPV Routine 01/20/2018 HEPATITIS C SCREENING Routine 01/20/2018 from Last 3 Months or Most Recently Relevant to Health Maintenance Results * Urine Albumin Creatinine Ratio (10/22/2022) Urine Albumin Creatinine Ratio Abstracted Historical Provider [...] AM EDT Narrative 02/09/2022 1:15 PM EDT [facility] Diagnostic Imaging Department [address] [place] [address] Patient: CLOTILDE VIDALES /Age/Sex: 1955 - 66 - F Unit#: [id number] Location/Status: SPDIMAM/REG CLI Mnemonic/Ordering Site: [facility]IG[facility] Ordering Physician: AMELIA BEACH PA-C Lc Screening Digital - 02/09/22 - 1203 INDICATION: SCREENING COMPARISON: [facility] mammograms dating back to 02/01/2014 TECHNIQUE: CC and MLO views of the breasts were obtained, using full field digital mammography with 3D tomosynthesis views in the MLO projection. Computer aided detection with the [employer] 7.2-H was employed. FINDINGS: The breasts contain [...] target date for the next mammogram. G0202 [id number]) , [id number] Dictating Physician: MANISH ZARAGOZA MD Electronically Signed by: MANISH ZARAGOZA MD Dic Date/Time: 02/09/22 1310 Sign date/Time: 02/09/22 1315 Procedure Note Manish Zaragoza MD - 09/30/2022 [facility] Diagnostic Imaging Department [address] [place], [place] [id number] Patient: CLOTILDE VIDALES /Age/Sex: 1955 - 66 - F Unit#: [id number] Location/Status: [facility] CLI Mnemonic/Ordering Site: [facility] Ordering Physician: AMELIA BEACH PA-C Lc Screening Digital - 02/09/22 - 1203 INDICATION: SCREENING COMPARISON: [facility] mammograms dating back to 02/01/2014 TECHNIQUE: CC and MLO views of the breasts were obtained, using full field digital mammography with 3D tomosynthesis views in the MLO projection. Computer aided detection with the [employer] ENT.2-H was employed. FINDINGS: The breasts contain scattered [...] a target date for the next mammogram. G0141 / [id number]) , [id number] Dictating Physician: MANISH ZARAGOZA MD Electronically Signed by: MANISH ZARAGOZA MD Dic Date/Time: 02/09/22 1310 Sign date/Time: 02/09/22 1314 us Amelia FARMER IMG BI PROCEDURES Final Result * LC DEXA AXIAL SKELETON (09/11/2021 10:56 AM EST) Anatomical Region Laterality Modality Mammography 09/11/2021 10:3 1 AM EST Narrative 09/11/2021 10:56 AM EST [facility] Diagnostic Imaging Department [address] [place] [address] [id number] Patient: CLOTILDE VIDALES /Age/Sex: 1955 - 66 - F Unit#: [id number] Location/Status: [facility] Mnemonic[facility] Ordering Physician: ANDREA CERDA CNM [facility] Dexa Axial Skeleton - 09/11/211049 HISTORY: The [...] probability of hip fracture of 0.4%. Code 17616 Dictating Physician: BRENNA TSE MD Electronically Signed by: BRENNA TSE MD Dic Date/Time: 09/11/21 1054 Sign date/Time: 09/11/21 1056 Procedure Note Brenna Tse MD - 09/30/2022 [facility] Diagnostic Imaging Department [address] [place] [address] [id number] Patient: KALYAN VIDALESJeremiah McfaddenB./Age/Sex: 1955 - 66 - F Unit#: [id number] [facility]Ordering Site: [facility] Ordering Physician: ANDREA CERDA CNM Lc Dexa [...] density of the femurs bilaterally is 1.098 gm/re5aiabf is 109% of that of young normals [...] probability of hip fracture of 0.4%. Code 08344 Dictating Physician: BRENNA TSE MD Electronically Signed by: BRENNA TSE MD Dic Date/Time: 09/11/21 1054 Sign date/Time: 09/11/21 1056 Andrea Cerda CN IMG BI PROCEDURES Final Resul t * Colonoscopy (01/17/2021) [facility] Colonoscopy Abstracted, no interpretation Anatomical Region Laterality Modality Other Result [facility] Historical Provider HEALTH MAINTENANCE Final Result * Cervical Cancer Screening: HPV (01/20/2018) [facility] Cervical Cancer Screening: HPV Abstracted, Negative Historical Provider HEALTH MAINTENANCE Final Result * Hepatitis C Screening (01/20/2018) [facility] Hepatitis C Screening Abstracted Result [facility] Historical Provider HEALTH MAINTENANCE Final Result from Last 3 Months or Most Recently Relevant to Health Maintenance Insurance [facility] Member Subscriber Plan / Payer (Ef fective 2023-Present) Name:Clotilde Vidales Relation to Subscriber:Self Name:Clotilde Vidales Payer ID:[id number] Group ID:[id number] Type:Not on file Address: [place] [address] [address] [address] MEDICA[place] - [place] Care Teams International Nurse Relationship Specialty Start Date End Date Amelia Beach PA [address] [facility] [address] [place] [address] PCP - General Internal Medicine 12/25/19
== END 2025-07-17 15:15 | disposition home or self-care (01) ==
LOC: HO.HMCC 13:46
PROVIDERS: PCP Nurse Practitioner Family; Visit Provider Nurse Practitioner Family
DX: E11.9 Type 2 diabetes mellitus without complications (principal); E53.8 Deficiency of other specified B group vitamins; E55.9 Vitamin D deficiency, unspecified; Z13.9 Encounter for screening, unspecified

== ENCOUNTER → 2025-07-17 13:46 | Outpatient (BNVA) | payer MEDICARE, MEDICAID, SELFPAY | PROVIDERS: PCP Nurse Practitioner Family; Visit Provider Nurse Practitioner Family | DX: E11.9 Type 2 diabetes mellitus without complications (principal); R01.1 Cardiac murmur, unspecified; E53.8 Deficiency of other specified B group vitamins; E55.9 Vitamin D deficiency, unspecified | CPT/HCPCS: 83036; 99212 ==

== ENCOUNTER → 2025-10-01 12:53 | Outpatient (REF) | payer MEDICARE, MEDICAID, SELFPAY ==
--- NOTE | 2025-10-01 12:57 | CA_ITS ---
Transthoracic Echocardiogram Patient (Last, First, Middle): Clotilde Vidales, Gender: F Date of : 1955 Age: 70 Procedure Date: 10/01/2025 Procedure Type: Transthoracic Echocardiogram Location: OP Height: 157.48 cm Weight: 68.95 kg BSA: 1.70 m2 Heart Rate: bpm BP: 122 / 66 mmHg Machine Brush Maker: MARTI Referring MD: Dimas Messer MD Grinding Room Inspector: Dimas Messer MD Symptoms: I48.0 - Paroxysmal atrial fibrillation Study Quality: Fair ECG Rhythm: Sinus Conclusions: - 1. Normal LV ejection fraction of 60 65% with impaired relaxation filling pattern 2. Calcific aortic and mitral valve changes noted with mild aortic stenosis with mild aortic and mild mitral regurgitation 3. Normal RV systolic pressure 4. Upper limits of normal ascending aortic size 5. No gross pericardial effusion Findings Left Ventricle Normal left ventricular size, thickness, and systolic function. The visually estimated ejection fraction is between 60-65%. Spectral Doppler is indicative of an impaired relaxation filling pattern. E/E prime ratio is >15, consistent with elevated filling pressures. Right Ventricle Normal right ventricular cavity size and systolic function. Atria The left atrium is likely dilated. There is lipomatous hypertrophy of the interatrial septum. There is no evidence of interatrial shunt. The right atrium is normal in size. Aortic Valve There is mild calcification of the aortic valve. There is mild aortic valve stenosis. The peak aortic velocity is 1.91 m/s with a calculated peak gradient of 15 mmHg. The mean gradient is 8 mmHg. The aortic valve area is 1.62 cm2. There is mild aortic valve regurgitation. Mitral Valve There is mild anterior and posterior mitral leaflet thickening. There is mild mitral annular calcification. There is trace mitral valve regurgitation. There is no mitral valve stenosis. Pulmonic Valve The pulmonic valve is likely normal. There is trace pulmonic valve regurgitation. Tricuspid Valve Normal tricuspid valve structure. There is trace tricuspid valve regurgitation. The right ventricular systolic pressure is normal. The right ventricular systolic pressure is 16 mmHg. Normal right atrial pressure. There is no evidence of pulmonary hypertension. Great Vessels The pulmonary artery was not well visualized. There is no dilatation of the ascending aorta measuring 3.50 cm. Small plaque is seen in the sino tubular ridge. Venous The inferior vena cava is normal in size and collapses greater than 50% with inspiration. Pericardium/Pleural There is no evidence of pericardial effusion. Measurements 2D Linear Measurements IVSd: 0.96 0.6-0.9/0.6-1.0 cm LVIDd: 3.84 3.9-5.3/4.2-5.9 cm LVIDd Index: 2.26 2.4-3.2/2.2-3.1 cm/m2 LVIDs: 2.57 2.0-3.6 cm LVPWd: 0.98 0.7-1.1 cm LA Diam: 4.10 2.7-3.8/3.0-4.0 cm LAIDs Index: 2.41 1.5-2.3 cm/m2 LV Mass: 142.35 67-162/88-224 g LV Mass Index: 83.74 43-95/49-115 g/m2 LVOT Diam: 1.90 3.0+(-)1.3 cm 2D Systolic Function EF 4C: 63.40 >55% EF 2C: 66.90 >55% EF BiP: 65.90 >55% Mitral Valve MV Pk E: 0.69 MV PK A: 1.16 MV Decel Time: 236.00 E/A: 0.60 E'Lateral: 3.48 E'Medial: 4.46 E/E' Med: 15.40 E/E' Lat: 19.80 PHT: 69.00 MVA PHT: 3.19 Decel Panola: 2.92 Aortic Valve AoV Pk José Miguel: 1.91 AoV Mn José Miguel: 1.34 AoV VTI: 0.40 AoV Pk Grad: 15.00 Aov Mn Grad: 8.00 MAJOR Cont.VTI: 1.62 LVOT LVOT Pk José Miguel: 1.02 LVOT Mn José Miguel: 0.73 LVOT VTI: 0.23 LVOT Pk Grad: 4.00 LVOT Mn Grad: 2.00 LVOT Diam: 1.90 LVOT Area: 2.84 Diastolic Function MV Pk E: 0.69 MV Pk A: 1.16 E/A: 0.60 E'Medial: 4.46 E/E' Med: 15.40 E' Laterial: 3.48 E/E' Lat: 19.80 Right Ventricle TAPSE (mm): 22.00 TVS' José Miguel: 17.30 Tricuspid Valve TR Pk José Miguel: 1.83 TR Pk Grad: 13.00 RA Press: 3.00 RVSP: 16.00 Great Vessels Aorta Ao Asc: 3.50 2.1-3.4 cm Updated in Other Vendor System with Status of Final Dimas Messer MD electronically signed on 10/01/2025 2:58:16 PM with status of Final
--- OUTSIDE RECORDS SUMMARY | 2025-10-01 16:06 | XMS_ITS | Patient Health Record ---
Author Organization [facility] Address [address] [place] [address] Care Team Providers Care Camelid Fiber Sorter Name Role Phone AMELIA YOUSSEF PA-C Primary Care Provider Sanna luis manuel candelarioNestorEMILIEA Unavailable [phone] Allergies Allergen (clinical drug ingredient) Drug/Non Drug Allergy documented on EMR Reaction Allergy Type Onset Date Status sitagliptin Januvia pancreatitis Drug Allergy Ac tive Reason For Referral No Information Medications Medication SIG (Take, Route, Frequency, Duration) Notes Start Date End Date Status Jardiance 25 MG Tablet 1 tablet Orally Once a day 07/01/2022 Active glipiZIDE XL 10 MG Tablet Extended Release 24 Hour 2 tab(s) orally once a day in AM 02/23/2018 Active Eliquis 5 MG Tablet as directed orally 2 times a day; Duration: 30 day(s) Activ e metFORMIN HCl 1000 MG Tablet 1 tab(s) orally 2 times a day Active Omeprazole 20 MG Capsule Delayed Release 1 cap(s) orally once a day Active Vitamin B-12 500 MCG Tablet 1 tab(s) orally once a day 04/26/2021 A ctive Aspirin 81 MG Tablet Delayed Release 1 tab(s) orally once a day Active Atorvastatin Calcium 20 MG Tablet 1 tab(s) orally once a day A ctive Fluticasone Propionate 50 MCG/ACT Suspension 1 spray(s) intranasally once a day Active Advair Diskus 250-50 MCG/DOSE Aerosol Powder Breath Activated 1 puff(s) inhaled 2 times a day Active ProAir HFA 108 (90 Base) MCG/ACT Aerosol Solution 2 puff(s) inhaled 2 times a day PRN Active Social History Tobacco Use: Social History Observation Description Date Details (start date - stop date) Never Smoker NA - NA Social History Tobacco Use: Social Info Question Answer Notes Smoking Are you a: never smoker Additional Details Category Social Info Options Details General 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, 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 exposure: no Past year's travels: none alcohol use: yes occasionally drug use: no Hobbies/Exercise habits: BINGO Coffee/Tea/Soda: yes 3 cups of coffe e daily Marital Status experience no Living with mother smokers in household no Drugs no Section Notes: HAs boyfriend HAs boyfriend HAs boyfriend HAs boyfriend HAs boyfriend HAs boyfriend HAs boyfriend HAs boyfriend HAs boyfriend HAs boyfriend HAs boyfriend HAs boyfriend HAs boyfriend Problems Problem Type SNOMED Code ICD Code Onset Dates Problem Status W/U Status Risk Notes Problem Polyneuropathy due to type 2 diabetes mellitus (051486511) Type 2 diabetes mellitus with peripheral neuropathy (E11.42) Active confirmed Plan Of Treatment Future Test Test Name Order Date GLYCOHEMOGLOBIN (HBA1C) 07/23/2021 VITAMIN B12 07/23/2021 COMP. METABOLIC 07/23/2021 GLYCOHEMOGLOBIN (HBA1C) 10/27/2021 COMP. METABOLIC 10/27/2021 Insurance Providers Payer Name Payer Address Payer Phone Subscriber Number Group Number Insured Name Patient Relationship to Insured Coverage Start Date Coverage End Date [facility] [address] [address] [place] [address] [id number] SHOBHA PAZ Self - patient is the insured [facility] [address] [place] [address] [id number] SHOBHA PAZ Self - patient is the insured Medical (General) History Medical History History ICD Code Asthma type 2 diabetes dx 2012 (optho Winn - over due) Migraines hyperlipidemia diverticulosis GERD pancreatitis- Januvia induced 2015 Afib- 2019-on Eliquis Surgical History Surgery Date(Month/Year) left 4th trigger finger surgery 02/08/19 Bilateral Lens implant 2013
--- OUTSIDE RECORDS SUMMARY | 2025-10-01 16:06 | XMS_ITS | Clinical Summary ---
Author Organization [facility] Address [address] [place] [address] Phone Care Team Providers Care Photo Mask Inspector Name Role Phone Amelia Beach Primary [...] CAPSULE BY MOUTH EVERY DAY 3 Active Gumi[employer]Touch UltraSoft Lancets 1 Device by Does not apply route 2 times daily. DX E11.49 1 Active blood sugar diagnostic ([employer] Verio test strips) test strip USE TO [...] (08/18/2024): metrogel topical Type 2 diabetes mellitus with cataract 4 Urinary incontinence 06/12/2021 Paroxysmal atrial fibrillation 02/19/2020 Lesion of breast 08/26/2018 Allergic rhinitis 04/20/2018 Asthma 04/20/2018 Diverticulosis 04/20/2018 Hyperlipidemia 04/20/2018 Type 2 diabetes mellitus with neurological manif estations 04/20/2018 Anxiety 04/29/2017 Cataract 02/26/2017 Overview (08/18/2024): [...] Type 2 diabetes mellitus wit h cataract (CMS/HCC V24, CMS/HCC V28) DX:Type 2 diabetes mellitus with cataract (HCC) Allergic rhinitis 04/20/2018 DX:Allergic rh initis Carpal tunnel syndrome 08/29/2014 DX:Carpal tunnel syndrome Cataract 02/26/2017 DX:Cataract; COM MENT: S/p surgery History of herpes zoster 09/21/2016 DX:Hist ory of herpes zoster History of pancreatitis 03/25/2016 DX:Histo ry of pancreatitis Type 2 diabetes mellitus wit h neurological manifestations ([facility]/HCC V24, [facility]/HCC V28) 04/20/2018 DX:Type 2 diabetes mellitus with neurological manifestations ([facility]) H/O bone density study 02/17/2019 [...] Job Start Date Job End Date 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 Not on file Not on file No [...] 1966 Diabetes: Annual Retina Eye Exam 1966 RSV Immunization Adult Patients (1 - Risk 50-74 years 1-dose series) 2006 DTaP,Tdap,and Td Vaccines (2 - Td or Tdap) 09/26/2011 09/26/2001 Zoster Vaccines (2 of 2) 10/06/2019 08/11/2019 [...] A1C Routine 10/22/2022 LIPID PANEL Routine 10/22/2022 [facility] SCREENING DIGITAL Routine 02/09/2022 1:15 PM EDT Encounter for screening mammogram for malignant neoplasm of breast [facility] DEXA AXIAL SKELETON Routine 09/11/2021 10:56 AM EST Encounter for screening for osteoporosis COLONOSCOPY Routine 01/17/2021 HPV Routine 01/20/2018 HEPATITIS C SCREENING Routine 01/20/2018 from Last 3 Months or Most Recently Relevant to Health Maintenance Results * Urine Albumin Creatinine Ratio (10/22/2022) Urine Albumin Creatinine Ratio Abstracted Historical Provider MD HEALTH MAINTENANCE Final Result * Annual BMP Blood Test (10/22/2022) Pathologist [facility] Annual BMP Blood Test Abstracted Historical Provider MD HEALTH MAINTENANCE Final Result * (ABNORMAL) Hemoglobin [...] AM EDT Narrative 02/09/2022 1:15 PM EDT [facility] Diagnostic Imaging Department [address] [place] [address] Patient: SHOBHA VIDALES /Age/Sex: 1955 - 66 - F Unit#: [id number] [facility]ing [facility] Ordering Physician: AMELIA BEACH PA-C Lc Screening Digital - 02/09/22 - 1203 INDICATION: SCREENING COMPARISON: [facility] mammograms dating back to 02/01/2014 TECHNIQUE: CC and MLO views of the breasts were obtained, using full field digital mammography with 3D tomosynthesis views in the MLO projection. Computer aided detection with the [employer] 7.2-H was employed. FINDINGS: The breasts contain [...] date for the next mammogram. G0202 / [id number] , [id number] Dictating Physician: MANISH ZARAGOZA MD Electronically Signed by: MANISH ZARAGOZA MD Dic Date/Time: 02/09/22 1310 Sign date/Time: 02/09/22 1315 Procedure Note Manish Zaragoza MD - 09/30/2022 [facility] Diagnostic Imaging Department [address] [place] [address] Patient: SHOBHA VIDALES./Age/Sex: 1955 - 66 - F Unit#: [id number] [facility]Ordering Site: [facility] Ordering Physician: AMELIA BEACH PA-C Lc Screening Digital - 02/09/22 - 1203 INDICATION: SCREENING COMPARISON: [facility] mammograms dating back to 02/01/2014 TECHNIQUE: CC and MLO views of the breasts were obtained, using full field digital mammography with 3D tomosynthesis views in the MLO projection. Computer aided detection with the [employer] 7.2-H was employed. FINDINGS: The breasts contain [...] target date for the next mammogram. G0202 [id number] , 52430 Dictating Physician: MANISH ZARAGOZA MD Electronically Signed by: MANISH ZARAGOZA MD Dic Date/Time: 02/09/22 1310 Sign date/Time: 02/09/22 1319 Amelia FARMER IMG BI PROCEDURES Final Result * LC DEXA AXIAL SKELETON (09/11/2021 10:56 AM EST) Anatomical Region Laterality Modality Mammography 09/11/2021 10:3 1 AM EST Narrative 09/11/2021 10:56 AM EST [facility] Diagnostic Imaging Department [address] [place] [address] Patient: SHOBHA VIDALES /Age/Sex: 1955 - 66 - F Unit#: [id number] Location/Status: [facility]/REG CLI Mnemonic/Ordering Site: [facility] Ordering Physician: ANDREA [...] probability of hip fracture of 0.4%. Code 30490 Dictating Physician: BRENNA TSE MD Electronically Signed by: BRENNA TSE MD Dic Date/Time: 09/11/21 1054 Sign date/Time: 09/11/21 105 Procedure Note Brenna Tse MD - 09/30/2022 [facility] Diagnostic Imaging Department [address] [place] [id number] Patient: SHOBHA VIDALES /Age/Sex: 1955 - 66 - F Unit#: [id number] Location/Status: [facility]/REG CLI [facility] Ordering Physician: ANDREA CERDA CNM [...] density of the femurs bilaterally is 1.098 gm/kh5vblby is 109% of that of young normals [...] probability of hip fracture of 0.4%. Code 57791 Dictating Physician: BRENNA TSE MD Electronically Signed by: BRENNA TSE MD Dic Date/Time: 09/11/21 1054 Sign date/Time: 09/11/21 1056 Andrea Cerda CN IMG BI PROCEDURES Final Resul t * Colonoscopy (01/17/2021) Pathologist [facility] Colonoscopy Abstracted, no interpretation Anatomical Region Laterality Modality Other Result [facility] Historical Provider HEALTH MAINTENANCE Final Result * Cervical Cancer Screening: HPV (01/20/2018) Pathologist [facility] Cervical Cancer Screening: HPV Abstracted, Negative Result [facility] Historical Provider HEALTH MAINTENANCE Final Result * Hepatitis C Screening (01/20/2018) Pathologist [facility] Hepatitis C Screening Abstracted Historical Provider HEALTH MAINTENANCE Final Result from Last 3 Months or Most Recently Relevant to Health Maintenance Insurance [facility] Member Subscriber Plan / Payer (Ef fective 2023-Present) Name:Shobha Vidales Relation to Subscriber:Self Name:Shobha Vidales Payer ID:[id number] Group ID:[id number] Type:Not on file Address: [place] [address] [address] [address] MED[place]ID - [place] Care Teams Photo Mask Inspector Relationship Specialty Start Date End Date Amelia Beach PA [address] [address] PCP - General Internal Medicine 12/25/19
== END ==
LOC: HO.CARD 12:53
PROVIDERS: Visit Provider Internal Medicine Cardiovascular Disease
DX: I48.0 Paroxysmal atrial fibrillation (principal)
CPT/HCPCS: 93306

== ENCOUNTER → 2025-10-01 12:57 | Outpatient (BNV) | payer MEDICARE, MEDICAID, SELFPAY | PROVIDERS: Visit Provider Internal Medicine Cardiovascular Disease | DX: I35.0 Nonrheumatic aortic (valve) stenosis (principal); I35.8 Other nonrheumatic aortic valve disorders; I34.89 Other nonrheumatic mitral valve disorders; I34.0 Nonrheumatic mitral (valve) insufficiency | CPT/HCPCS: 93306 ==

== ENCOUNTER 2025-10-09 13:17 | Outpatient (AMB) | payer MEDICARE, MEDICAID, SELFPAY ==
--- NOTE | 2025-10-09 13:26 | MHC.OFFVIS ---
Vital Signs 10/09/25 13:28 Height 5 ft 2 in Weight 151 lb 3.794 oz BMI 27.7 BP 130/62 Blood Pressure Location Lt brachial Position Sitting Pulse 87 Pulse Source Monitor Intake Visit Reasons: 1 year fu Intake Note: 1 yr f/up Floor Refinisher Required: No Accompanied by: Self / Same As Patient Allergies sitagliptin (From Normuvshaista) Allergy (Intermediate, Verified 07/17/25 14:48) diarrhea/vomiting Medication List - Last Reconciled 10/09/25 by Dimas Messer MD Accu-Chek Guide Glucose Meter (blood-glucose meter) Test sugar once a day NS Accu-Chek Guide test strips (blood sugar diagnostic) Test blood sugar once a day NS albuterol sulfate 90 mcg/actuation 2 puffs inhalation Q4H PRN apixaban (Eliquis) 5 mg PO BID atorvastatin 20 mg PO DAILY bisacodyl (Dulcolax (bisacodyl)) 10 mg (2 x 5 mg) PO BEDTIME cetirizine 20 mg (2 x 10 mg) PO DAILY 90 days cyanocobalamin (vitamin B-12) 500 mcg PO Q OTHER DAY empagliflozin (Jardiance) 25 mg PO DAILY ferrous sulfate 325 mg PO DAILY fluticasone propionate 50 mcg/actuation 50 sprays intranasal DAILY glipizide ER 20 mg (2 x 10 mg) PO DAILY incontinence pad, liner, disp (Prevail Panty Liner pads) As directed lancets (Accu-Chek Softclix Lancets) Test blood sugar once a day lisinopril 2.5 mg PO DAILY metformin 1,000 mg PO BID metoprolol succinate ER 50 mg PO DAILY omeprazole 40 mg PO DAILY plecanatide (Trulance) 3 mg PO DAILY semaglutide (Ozempic) 2 mg (0.75 mL) subcut QWEEK [skin care wipes As directed] vibegron (Gemtesa) 75 mg PO DAILY HPI Comments Details: Clotilde comes for follow-up. She has no new cardiac symptoms. She maintains her activity of daily living. Although she does not go for regular exercises. She denies any exertional chest pain or shortness of breath. She has not had any prolonged palpitation irregular heartbeat. She denies any lightheadedness, syncope. She says her diabetes not much better control with hemoglobin A1c of 6.1%. Her recent echocardiogram showed mild aortic stenosis with calcific aortic and mitral valve changes with normal LV ejection fraction. [facility] Medical History Pires's esophagus determined by biopsy Barretts esophagus Diabetes Murmur Anemia Paroxysmal atrial fibrillation Edema Surgical History H/O colonoscopy History of carpal tunnel surgery of right wrist Hx of hand surgery Family History Mother No problems noted. Father No problems noted. Social History Housing: Apartment Patient Tobacco Use Status: Never used Tobacco e-Cigarette/Vaping Use: Never Used Second Hand Smoke Exposure: No service: No Current occupational status: retired Cognitive needs: No Hearing needs: No Vision needs: No Review of Systems Const Denies chills, Denies fatigue, Denies fever(s), Denies frequent falls, Denies weakness, Denies weight gain and Denies weight loss ENT Denies dizziness Card Denies chest pain, Denies leg edema, Denies lightheadedness, Denies palpitations, Denies dyspnea and Denies dyspnea on exertion Resp Denies cough, Denies dyspnea and Denies dyspnea on exertion GI Denies hematochezia Musc Denies abnormal gait, Denies muscle weakness, Denies numbness, Denies radiating pain into limb and Denies tingling Neuro Denies abnormal gait, Denies dizziness, Denies frequent falls, Denies numbness, Denies tingling and Denies weakness Endo Denies fatigue and Denies palpitations Physical Exam Vital Signs: Last Vital Signs Pulse 87 10/09/25 13:28 BP 130/62 10/09/25 13:28 BMI result Body Mass Index 27.7 Const General: cooperative, comfortable, no acute distress, alert, awake, Physically active and well groomed Nutritional Appearance: overweight Orientation/consciousness: patient oriented x3 Limitations: no limitations HEENT Head: Yes normocephalic and Yes atraumatic Neck Neck: Yes trachea midline, Yes supple and Yes no JVD Resp Effort & Inspection: normal respiratory effort Auscultation: clear to auscultation bilaterally Cardio Jugular venous distension: no JVD Palpation: normal PMI Rate: regular rate Rhythm: regular rhythm Heart sounds: S1 normal heart sound present, S2 normal heart sound present, no click, no gallops and Murmur heart sound present systolic early GI Auscultation: normal bowel sounds Skin General skin exam: no rashes or lesions noted Neuro General: patient oriented x3 and no focal motor deficits Extrem General: Yes no clubbing, cyanosis or edema Psych Appearance: grossly normal Office Procedures EKG Details: EKGs shows normal sinus rhythm with low-voltage QRS with septal QS pattern with no significant ST-T wave changes 40630-[id number], Complete Assessment & Plan Assessment & Plan (1) Aortic stenosis: Code(s): I35.0 - Nonrheumatic aortic (valve) stenosis Category: Medical Plan: Mild aortic stenosis. Pathophysiology was explained to her. Does not require any intervention at this point time. Gradually progressive nature of aortic stenosis were discussed. Will need echocardiogram in 1 year's time. Continue aggressive risk factor modification. Currently on full oral anticoagulation with apixaban and therefore avoid antiplatelet therapy. Aggressive diabetes management, hemoglobin A1c is well optimized. Statin therapy to continue with goal LDL less than 70 mg/dL. Blood pressure is currently well optimized. Encouraged to maintain blood pressure at home maintain a log. Encouraged to increase activity level. (2) Paroxysmal atrial fibrillation: Code(s): I48.0 - Paroxysmal atrial fibrillation Category: Medical Plan: Paroxysmal atrial fibrillation without any clinical recurrence. Continue rhythm control approach. No indication for antiarrhythmic drug therapy. Continue metoprolol therapy. Advised to avoid stimulants. Continue full oral anticoagulation, currently on apixaban 5 mg b.i.d.. Semi annual renal function test should be pursued. Will follow up in the clinic in 1 year's time, sooner PRN. Thank you for allowing me to partake in her care Coding Level of Care Code Est Pt Level 4 (26306) Diagnoses Aortic stenosis I35.0 Paroxysmal atrial fibrillation I48.0 CPT Codes EKG - CPT: 87210-Eqgxvabhzkebrxwcm, Complete ([id number])
[2025-10-09 13:28] VITALS: BP 130/62; PULSE 87; BMI 27.7
--- OUTSIDE RECORDS SUMMARY | 2025-10-09 17:11 | XMS_ITS | Patient Health Record ---
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 METABOLIC 07/23/2021 GLYCOHEMOGLOBIN (HBA1C) 10/27/2021 COMP. METABOLIC 10/27/2021 Insurance Providers Payer Name Payer Address Payer Phone Subscriber Number Group Number Insured Name Patient Relationship to Insured Coverage Start Date Coverage End Date [facility] [employer] [address] [address] [place] [address] [id number] SHOBHA PAZ Self - patient is the insured [facility] [address] [place] [address] [id number] SHOBHA PAZ Self - patient is the insured Medical (General) History Medical History History ICD Code Asthma type 2 diabetes dx 2012 (optho Winn - over due) Migraines hyperlipidemia diverticulosis GERD pancreatitis- Januvia induced 2015 Afib- 2019-on Eliquis Surgical History Surgery Date(Month/Year) left 4th trigger finger surgery 02/08/19 Bilateral Lens implant 2013
--- OUTSIDE RECORDS SUMMARY | 2025-10-09 17:11 | XMS_ITS | Clinical Summary ---
Author Organization [facility] Address [address] [place] [address] Phone Care Team Providers Care Soft Hat Binder Name Role Phone Amelia Beach Primary Care [...] Active blood-glucose meter (ONETOUCH VERIO IQ METER [facility]) Test blood sugar 2 times daily DX:E11.49 [...] CAPSULE BY MOUTH EVERY DAY 3 Active UltiZenTouch UltraSoft Lancets 1 Device by Does not apply route 2 times daily. DX E11.49 1 Active blood sugar diagnostic ([place] Verio test strips) test strip USE TO [...] 2 diabetes mellitus wit h neurological manifestations ([facility]/HCC V24, [facility]/HCC V28) 04/20/2018 DX:Type 2 diabetes mellitus with neurological manifestations (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 Not on file Not on file No [...] A1C Routine 10/22/2022 LIPID PANEL Routine 10/22/2022 [facility] SCREENING DIGITAL Routine 02/09/2022 1:15 PM EDT Encounter for screening mammogram for malignant neoplasm of breast [facility] DEXA AXIAL SKELETON Routine 09/11/2021 10:56 AM EST Encounter for screening for osteoporosis COLONOSCOPY Routine 01/17/2021 HPV Routine 01/20/2018 HEPATITIS C SCREENING Routine 01/20/2018 from Last 3 Months or Most Recently Relevant to Health Maintenance Results * Urine Albumin Creatinine Ratio (10/22/2022) Urine Albumin Creatinine Ratio Abstracted Historical Provider MD HEALTH MAINTENANCE Final Result * Annual BMP Blood Test (10/22/2022) Pathologist [facility] Annual BMP Blood Test Abstracted Historical Provider [...] AM EDT Narrative 02/09/2022 1:15 PM EDT [facility] Diagnostic Imaging Department [address] [place] [address] Patient: SHOBHA VIDALES /Age/Sex: 1955 - 66 - F Unit#: [id number] [facility]onic[facility]Ordering Site: [facility] Ordering Physician: AMELIA BEACH PA-C Lc Screening Digital - 02/09/22 - 1203 INDICATION: SCREENING COMPARISON: [facility] mammograms dating back to 02/01/2014 TECHNIQUE: CC and MLO views of the breasts were obtained, using full field digital mammography with 3D tomosynthesis views in the MLO projection. Computer aided detection with the [employer] 7.2-H was employed. FINDINGS: The breasts [...] date for the next mammogram. G0202 / [id number] , [id number] Dictating Physician: MANISH ZARAGOZA MD Electronically Signed by: MANISH ZARAGOZA MD Dic Date/Time: 02/09/22 1310 Sign date/Time: 02/09/22 1315 Procedure Note Manish Zaragoza MD - 09/30/2022 [facility] Diagnostic Imaging Department [address] [place] [address] Patient: SHOBHA VIDALES./Age/Sex: 1955 - 66 - F Unit#: [id number] [facility]Ordering Site[facility] Ordering Physician: AMELIA BEACH PA-C Lc Screening Digital - 02/09/22 - 1203 INDICATION: SCREENING COMPARISON: [facility] mammograms dating back to 02/01/2014 TECHNIQUE: CC and MLO views of the breasts were obtained, using full field digital mammography with 3D tomosynthesis views in the MLO projection. Computer aided detection with the [employer] 7.2-H was employed. FINDINGS: The breasts [...] target date for the next mammogram. G0202 [id number] , [id number] Dictating Physician: MANISH ZARAGOZA MD Electronically Signed by: MANISH ZARAGOZA MD Dic Date/Time: 02/09/22 1310 Sign date/Time: 02/09/22 1312 Amelia FARMER IMG BI PROCEDURES Final Result * LC DEXA AXIAL SKELETON (09/11/2021 10:56 AM EST) Anatomical Region Laterality Modality Mammography 09/11/2021 10:3 1 AM EST Narrative 09/11/2021 10:56 AM EST [facility] Diagnostic Imaging Department [address] [place] [address] Patient: SHOBHA VIDALES /Age/Sex: 1955 - 66 - F Unit#: [id number] Location/Status: [facility]/REG CLI Mnemonic/Ordering Site: [facility] Ordering Physician: [...] probability of hip fracture of 0.4%. Code 17159 Dictating Physician: BRENNA TSE MD Electronically Signed by: BRENNA TSE MD Dic Date/Time: 09/11/21 1054 Sign date/Time: 09/11/21 105 Procedure Note Brenna Tse MD - 09/30/2022 [facility] Diagnostic Imaging Department [address] [place] [address] Patient: SHOBHA VIDALES /Age/Sex: 1955 - 66 - F Unit#: [id number] Location/Status: [facility] CLI Mnemonic/Ordering Site[facility] Ordering Physician: ANDREA CERDA CNM Lc [...] density of the femurs bilaterally is 1.098 gm/qm3nictk is 109% of that of young normals [...] probability of hip fracture of 0.4%. Code 29283 Dictating Physician: BRENNA TSE MD Electronically Signed by: BRENNA TSE MD Dic Date/Time: 09/11/21 1054 Sign date/Time: 09/11/21 1056 Andrea Cerda CN IMG BI PROCEDURES Final Resul t * Colonoscopy (01/17/2021) Pathologist [facility] Colonoscopy Abstracted, no interpretation Anatomical Region Laterality Modality Other Result [facility] Historical Provider HEALTH MAINTENANCE Final Result * Cervical Cancer Screening: HPV (01/20/2018) Pathologist [facility] Cervical Cancer Screening: HPV Abstracted, Negative Result [facility] Historical Provider HEALTH MAINTENANCE Final Result * Hepatitis C Screening (01/20/2018) Pathologist [facility] Hepatitis C Screening Abstracted Historical Provider HEALTH MAINTENANCE Final Result from Last 3 Months or Most Recently Relevant to Health Maintenance Insurance [facility] Member Subscriber Plan / Payer (Ef fective 2023-Present) Name:Shobha Vidales Relation to Subscriber:Self Name:Shobha Vidales Payer ID:[id number] Group ID:[id number] Type:Not on file Address: [place] [address] [address] [address] MEDICAID - [place] Care Teams Soft Hat Binder Relationship Specialty Start Date End Date Amelia Beach PA [address] [address] PCP - General Internal Medicine 12/25/19
== END 2025-10-09 13:40 | disposition home or self-care (01) ==
LOC: HO.HCS 13:17
PROVIDERS: PCP Nurse Practitioner Family; Visit Provider Internal Medicine Cardiovascular Disease
DX: I35.0 Nonrheumatic aortic (valve) stenosis (principal); I48.0 Paroxysmal atrial fibrillation
CPT/HCPCS: 93010; 99214

== ENCOUNTER → 2025-10-09 13:17 | Outpatient (BNVA) | payer MEDICARE, MEDICAID, SELFPAY | PROVIDERS: PCP Nurse Practitioner Family; Visit Provider Internal Medicine Cardiovascular Disease | DX: I35.0 Nonrheumatic aortic (valve) stenosis (principal); I48.0 Paroxysmal atrial fibrillation | CPT/HCPCS: 93005; 99212 ==